=== PATIENT | female | born 1955 | race African-American/Black ===

== ENCOUNTER 2025-06-22 15:01 | Outpatient (AMB) | payer BC, MEDICAID, SELFPAY ==
--- NOTE | 2025-06-22 15:12 | A.PHYSOV ---
Vital Signs 06/22/25 15:23 Height 5 ft 7 in Weight 175 lb BMI 27.4 Intake Visit Reasons: Having increased shoulder and neck pain Intake Note: Patient is a 70 year old female having increased shoulder and neck pain. 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 She reports that about a week ago, she experienced a sudden onset of severe left shoulder pain that rendered her unable to move the arm, requiring her to use her right arm to move the left one. This episode occurred after grocery shopping with only one bag, and she subsequently spent two days in bed. She managed the symptoms at home with heat and Tylenol, and reports the pain has since improved significantly. A recent X-ray of the left shoulder was reportedly normal, with no fractures identified. The patient has a history of right shoulder issues, for which she previously sought care, related to a prominent clavicle, which she describes as causing discomfort and soreness rather than acute pain. She has undergone physical therapy for the right shoulder in the past. Additionally, the patient reports a history of sleepwalking, which has resulted in ER visits and a referral to a sleep center. Pain Description - Location: The patient reports a recent acute episode of left shoulder pain. - Quality: The left shoulder pain was so severe she was unable to move the arm independently. - Context: The pain began at the end of the day after grocery shopping. - Associated symptoms: The patient also reports chronic discomfort and soreness in the right shoulder and neck soreness with some pain on movement. - Alleviating factors: The acute left shoulder pain improved with rest, heat, and Tylenol. - Current status: The severe left shoulder pain has resolved, and she is feeling much better. Results - Imaging: Reports that a recent X-ray of the left shoulder was normal and showed no broken bones. [facility] Surgical History (Updated 06/22/25 @ 15:23 by Mojgan Angulo MA) Previous section H/O tubal ligation H/O: hysterectomy Social History (Updated 06/22/25 @ 15:22 by Mojgan Angulo MA) Alcohol intake: current Alcohol intake frequency: does not drink Patient Tobacco Use Status: Never used Tobacco Use of substances other than those prescribed or required for medical reasons: No Review of Systems Narrative Review of Systems - Musculoskeletal: Reports a recent episode of severe left shoulder pain, which has now improved. - Musculoskeletal: Reports chronic right shoulder discomfort and soreness, and a prominent right clavicle. - Musculoskeletal: Reports neck soreness. - Neurological: Reports a history of sleepwalking. - Constitutional: Reports difficulty sleeping, spending half the night awake. Physical Exam Exam Exam: Physical Exam - Neck: No pain on palpation, but some soreness noted. - Cervical Spine: Range of motion shows pain with bilateral lateral rotation, described as a pulling sensation. - Shoulders: Sore to palpation. - Right Shoulder: Discomfort noted with active abduction. - Left Shoulder: Pain is reproduced with a passive range of motion maneuver. - Motor: Strength is 5/5 with bilateral shoulder internal/external rotation, abduction, and adduction. - Hands: Bilateral evp general counsel strength is strong. - Clavicle: Right clavicle is more prominent and swollen compared to the left, suggestive of arthritic changes. Vital Signs: BMI result Body Mass Index 27.4 Assessment & Plan Assessment & Plan (1) Cervicalgia: Code(s): M54.2 - Cervicalgia Category: Medical (2) Impingement of left shoulder: Code(s): M25.812 - Other specified joint disorders, left shoulder Category: Medical Plan Pain Management - Analgesia: The patient used heat and Tylenol to manage her recent acute left shoulder pain. - Affect: She reports no significant current distress, as her pain is much improved. - Activities of Daily Living: During the acute pain episode, she was unable to leave the house and was bed-bound for two days. - Adverse Effects: No adverse effects from medications were discussed. - Aberrant Drug Related Behaviors: No aberrant behaviors were noted or discussed. Plan Patient was informed and verbally consented to the use of an ambient scribe for clinic note documentation during this visit. 1. Shoulder Pain The recent acute episode of left shoulder pain is suspected to be due to calcific tendinitis or bursitis, despite a negative x-ray. The chronic right shoulder discomfort is likely related to arthritis, as evidenced by the prominent clavicle. Since her symptoms have significantly improved, no immediate intervention is planned. Future options for pain flares were discussed, including physical therapy, oral medications, and cortisone injections, though she is not interested in injections at this time. The patient was instructed to call the clinic if the severe pain returns. 2. Sleep Disturbance The patient reports a history of sleepwalking and significant sleep disruption. She was advised on sleep posture, including sleeping on her side with a pillow between her legs or on her back, and avoiding sleeping on her stomach. She should follow up with the sleep center as previously referred. 3. Neck Pain The patient has neck soreness and pain on lateral rotation noted on exam. No active management was initiated at this visit, but she was advised she can return to the clinic for neck pain if it becomes problematic. Discussion Notes I explained to the patient that her recent severe left shoulder pain was likely an inflammatory condition such as bursitis or calcific tendinitis, which can resolve on its own, and that a negative X-ray for fracture is common in these cases. I also reassured her that the prominence of her right clavicle is likely from arthritis and not a detrimental condition. We agreed that since her symptoms have significantly improved, the plan is to monitor for now. I discussed future treatment options for pain flare-ups, including physical therapy, cortisone injections, and oral medications. I acknowledged her preference to avoid injections. I provided guidance on sleep posture. Finally, I encouraged her to contact our clinic directly for future musculoskeletal pain, such as in the shoulder, neck, back, or knee, to streamline her care. Patient Instructions - Since your shoulder pain is much better, no specific treatment is needed at this time. - If the severe shoulder pain comes back, please call our office directly to schedule an appointment. - Options for future pain may include physical therapy, medication, or a steroid shot in the shoulder. - The swelling on your right collarbone is likely due to arthritis and is not a cause for alarm. - To improve your sleep, try sleeping on your side with a pillow between your knees or on your back. - Do not sleep on your stomach. - You are welcome to return to this clinic for any future neck, back, or knee pain. Coding Level of Care Code Est Pt Level 3 (28357) Diagnoses Cervicalgia M54.2 Impingement of left shoulder M25.812
[2025-06-22 15:23] VITALS: BMI 27.4
--- OUTSIDE RECORDS SUMMARY | 2025-06-22 18:17 | XMS_ITS | Continuity of Care Document ---
Author Organization [facility], Main Office Address [address] [facility] [address] [place] [id number] Care Team Providers Care Supervisor [place] Name Role Phone KALA JACOBS Rotary Screen Printing Machine Operator JOSEPH RASHID Urologist [facility] Resourcing Consultant ABIGAIL HAIDER Software Systems Architect TONNY NVOA Rotary Screen Printing Machine Operator COLLETTE BE Primary Care Provider RYLEE ROBERTS Cigarette Tester [phone] Assessment No assessment recorded. Plan of Treatment Reminders Order Date Submit Date Provider Last Modified By Organization Details Last Modified Time Details Appointments [id number] 2025 10:15A M COLLETTE BE MD Not available Not available Not available Lab giardi a lambli a Ag, EIA, stool 2024 025 JESUS [facility], [address] [place], [address], 04/27/2025 20:05:52 gastro intest inal pathog ens panel, cultur e, stool 2024 025 [email or web address] [facility], [address] [place], [address], 04/24/2025 10:42:37 crypto sporid ium sp Ag, immuno assay, stool 2024 025 JESUS [facility] (Centralized Electronic Ordering - All Locations), Patient Can Go To The Location Of Their Choice, [id number] 04/27/2025 20:05:54 unlist ed lab - ova and parasi te exam, fecal 2024 025 JESUS [facility] (Centralized Electronic Ordering - All Locations), Patient Can Go To The Location Of Their Choice, [id number] 05/06/2025 12:06:03 Referral sleep medici ne referr farrukh townsend had on two occasi ons that she was sleep walkin g 2024 025 [facility], [address] [place] [address], [address], 05/22/2025 10:31:37 Procedures None record ed. Surgeries None record ed. Imaging None record ed. Medication Orders None record ed. Patient TargetsNo targets recorded. Patient Instructions Encounter Date Encounter Id Patient Instructions Last Modified By Organization Details Last Modified Time 04/17/2025 [id number] anal itching: care instructions [email or web address] Not available 04/17/2025 14:15:51 At [facility] follow up visit, all current and discharge medications (OTC, herbal therapies, supplements) reviewed and reconciled with patient and or caregiver, including potential side effects, drug interactions, instructions, and the consequences of not taking medication. Reviewed potential barriers to medication adherence, such as side effects from medication or cost of medication. [email or web address] Not available 04/17/2025 13:41:45 Reason for Referral Sleep Medicine Referral for Obstructive sleep apnea syndrome patient had on two occasions that she was sleep walking Referring Physician: Collette Be, Family Medicine, Encounter Date: 04/17/2025 Results Created Date Observation Date Name Description Value Unit Range Abnormal Flag Note LastModifiedBy Organization Detail LastModifiedTime 04/25/2004/27/2025 GIARD IA LAMBL IA AG, EIA giardia lamblia Ag, EIA Negati ve negati ve Not Available [facility] ([facility]) [address] [facility] [place], [place], [address], 04/27/2025 20:05:52 04/25/2004/27/2025 CRYPT OSPOR IDIUM EIA cryptosporid ium EIA Negati ve negati ve Not Available [facility] ([facility]) [address] [place], [address], 04/27/2025 20:05:54 04/25/2004/29/2025 STOOL CULTU RE salmonella/s higella screen Final report Not Available [facility] ([facility]) [address] [place], [address], 05/01/2025 08:07:24 04/25/2004/29/2025 STOOL CULTU RE result 1 COMMEN T No Salmo anil or Shige lla recov ered. Not Available [facility] ([facility]) [address] [place], [address], 05/01/2025 08:07:24 04/25/2004/29/2025 STOOL CULTU RE E coli shiga toxin EIA Negati ve negati ve Not Available [facility] ([facility]) [address] [place], [address], 05/01/2025 08:07:24 04/25/2005/01/2025 STOOL CULTU RE campylobacte r culture Final report Not Available [facility] ([facility]) [address] [place], [address], 05/01/2025 08:07:24 04/25/2005/01/2025 STOOL CULTU RE result 1 COMMEN T No Campy lobac ter speci es isola nusrat. Not Available [facility] ([facility]) [address] [place], [address], 05/01/2025 08:07:24 04/25/2005/06/2025 OVA AND MOON ITE EXAM, FECAL interpretati on Commen t Refer ence lab repor t sent via fax. Not Available [facility] ([facility]) [address] [place], [address], 05/06/2025 12:06:03 06/15/20 25 06/15/2025 XR, shoul amanda, 2 or more view No observ ation record ed. [facility] [address] [address], [place], [address], 06/17/2025 17:11:36 06/15/20 25 06/15/2025 XR, shoul amanda, 2 or more view Should er Min 2 Views Left, 2 views Reason : pain in left should er - COMPAR AILYN: None. FINDIN GS: No fractu re or disloc ation. No arthri tic change of the glenoh umeral joint. Normal AC joint and portio ns of the clavic le includ ed on the exam. No calcif icatio n of the rotato r cuff. IMPRES ALBERT: No acute osseou s abnorm ality involv ing the left should er. WSN: [id number] Orderi ng Physic tatiana: Deyanira Jc Dictat ed By: Angel Grady MD, V Dictat ed Date/T paige: 3:40 pm Review ed By: Cristy maddox MD, Angel Anand Signed By: Angel Grady MD, V Signed Date/T paige: 3:40 pm Transc ribed By: JOVANNI Transc ribed Date/T paige: 3:40 pm Patien t Class: Outpat ient [facility] (Outpt Imaging) [address] [place], [address], 06/17/2025 17:11:36 Result Notes None recorded. Problems Name Problem SNOMED Code Status Onset Date Resolution Date Notes Provider Name and Address Organization Details Recorded Time Lighthea dedness [id number] Completed 09/26/2018 Lainey matos [facility] 9 09:31:22 Cervical radiculo charlene [id number] Completed 09/13/2015 Aisha matos [facility] 6 11:09:53 Atypical chest pain 999848411 Completed 09/13/2015 Aisha Jacobs null, [facility] 6 11:09:53 Hypercho lesterol emia 61579214 Completed 09/13/2015 Aisha Jacobs null, [facility] 6 11:09:53 Muscle pain 29495771 Completed 09/13/2015 Aisha Jacobs null, [facility] 6 11:09:53 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 ; RECORDED 08/20/19 09 2:56PM BY RAMESH DIAZ ON/ADDEN DUM Aisha Jacobs null, [facility] 6 11:09:54 Generali zed abdomina l pain [id number] Completed 200802/09/2014 IMPRESSI ON: MORE FOOD INTOLERA NCE, PT TO LIMIT CHOICES THAT UPSET HER STOMACH. ; RECORDED 08/20/19 09 2:56PM BY RAMESH DIAZ ON/ADDEN DUM Aisha Jacobs carlo, [facility] 6 11:09:54 General examinat ion of patient Completed 200801/20/2014 IMPRESSI ON: PAP, MAMMO AND COLONOSC OPY UP TO DATE, NEED TO INCREASE EXERCISE . TD UTD, WILL KEEP LOOKING FOR WORK. START MORE EXERCISE AND STRETCHI NG; RECORDED 04/13/20 10:37AM BY RAMESH BURKETT ON/ADDEN DUM Aisha Jacobs null, [facility] 6 11:09:54 General examinat ion of patient Completed 200802/09/2014 IMPRESSI ON: PAP, MAMMO AND COLONOSC OPY UP TO DATE, NEED TO INCREASE EXERCISE . TD UTD, WILL KEEP LOOKING FOR WORK. START MORE EXERCISE AND STRETCHI NG; RECORDED 04/13/20 09 10:37AM BY RAMESH BURKETT ON/ADDEN DUM Aisha Jacobs null, [facility] 6 11:09:54 Nonspeci fic tubercul in test reaction [id number] Completed 201101/20/2014 IMPRESSI ON: CONFIRME D WITH TB CLINIC OK TO GET XRAY ONLY.; RECORDED 06/03/20 12 11:31AM BY KARRIE ESCOTO MA, ALTAGRACIAATI ON/ADDEN DUM Aisha Jacobs null, [facility] 6 11:09:54 Acute pain 694567118 Completed 201101/20/2014 RECORDED 06/03/20 12 11:32AM BY KARRIE ESCOTO MA, ANNOTATI ON/ADDEN DUM Aisha Jacobs null, [facility] 6 11:09:53 Acute sinusiti s [id number] Completed 201101/20/2014 RECORDED 06/03/20 12 11:31AM BY KARRIE ESCOTO MA, ALTAGRACIAATI ON/ADDEN DUM Aisha Jacobs null, [facility] 6 11:09:53 Synovial cyst of poplitea l space Completed 201101/20/2014 RECORDED 06/03/20 12 11:31AM BY KARRIE ESCOTO MA, ANNOTATI ON/ADDEN DUM Aisha Jacobs null, [facility] 6 11:09:53 Screenin g for malignan t neoplasm of breast Completed 201101/20/2014 RECORDED 06/03/20 12 11:32AM BY KARRIE ESCOTO MA, ANNOTATI ON/ADDEN DUM Aisha Jacobs null, [facility] 6 11:09:54 Kidney stone 63477034 Completed 201101/20/2014 RECORDED 06/03/20 12 11:31AM BY KARRIE ESCOTO MA, ALTAGRACIAATI ON/ADDEN DUM Lainey Corbin watkins null, [facility] 9 09:31:27 Impacted jazmin 46403912 Completed 201101/20/2014 RECORDED 06/03/20 12 11:31AM BY KARRIE ESCOTO MA, ANNOTATI ON/ADDEN DUM Aisha matos, [facility] 6 11:09:53 Screenin g for malignan t neoplasm of cervix Completed 201101/20/2014 RECORDED 06/03/20 12 11:32AM BY KARRIE ESCOTO MA, ANNOTATI ON/ADDEN DUM HUEY Burkett, [facility] 7 15:25:21 Edema 170234467 Completed 201101/20/2014 IMPRESSI ON: NO SIGNS OF CHF, DISC. SALT RESTRICT ION, RECOMMEN D COMPRESS ION HOSE(HAS ); RECORDED 06/03/20 12 11:31AM BY KARRIE ESCOTO MA, ANNOTATI ON/ADDEN DUM Aisha matos, [facility] 6 11:09:53 Headache [id number] Completed 201101/20/2014 RECORDED 06/03/20 12 11:31AM BY KARRIE ESCOTO MA, ANNOTATI ON/ADDEN DUM Aisha matos, [facility] 6 11:09:53 Pain of hip region 89717310 Completed 201101/20/2014 IMPRESSI ON: X 2 MONTHS, APPEARS TO BE WORSENIN G. MAINLY LATERAL, BUT SOME ANTERIOR GROIN TENDERNE SS AND RADIATIO N OF PAIN INTO ANTERIOR THIGH. CHECK XRAYS, ADVISED RE CAREFUL USE OF IBU (HX OF HTN). WILL CONTACT WITH RESULT WHEN AVAIL. HAS APPT WITH PCP FOR FULL PE LATER THIS MO.; RECORDED 06/03/20 12 11:31AM BY KARRIE ESCOTO MA, ANNOTATI ON/ADDEN DUM Aisha matos, [facility] 6 11:09:53 Lateral epicondy litis 346159197 Completed 201101/20/2014 RECORDED 06/03/20 12 11:32AM BY KARRIE ESCOTO MA, ANNOTATI ON/ADDEN DUM Aisha Jacobs null, [facility] 6 11:09:53 Polyuria 91760716 Completed 201101/20/2014 RECORDED 06/03/20 12 11:32AM BY KARRIE ESCOTO MA, ANNOTATI ON/ADDEN DUM Aisha Jacobs null, [facility] 6 11:09:53 Sciatica 31115276 Completed 201101/20/2014 RECORDED 06/03/20 12 11:32AM BY KARRIE ESCOTO MA, RAMESH ON/ADDEN DUM Aisha Jacobs null, [facility] 6 11:09:53 Chronic sinusiti s 01833276 Completed 201101/20/2014 RECORDED 06/03/20 12 11:31AM BY KARRIE ESCOTO MA, RAMESH ON/ADDEN DUM Aisha Jacobs null, [facility] 6 11:09:53 Feces contents abnormal 950482699 Completed 201101/20/2014 RECORDED 06/03/20 12 11:31AM BY KARRIE ESCOTO MA, RAMESH ON/ADDEN DUM Aisha Jacobs null, [facility] 6 11:09:54 Psychoge [place]let headache 49631395 Completed 201101/20/2014 IMPRESSI ON: TALKED ABOUT EXERCISE , STRETCHI NG; RECORDED 06/03/20 12 11:31AM BY KARRIE ESCOTO MA, RAMESH ON/ADDEN DUM Aisha Jacobs null, [facility] 6 11:09:53 Chronic disease of tonsils AND/OR adenoids 10233617 Completed 201101/20/2014 RECORDED 06/03/20 12 11:31AM BY KARRIE ESCOTO MA, RAMESH ON/ADDEN DUM Aisha Jacobs null, [facility] 6 11:09:53 Nonspeci fic tubercul in test reaction [id number] Completed 201102/09/2014 IMPRESSI ON: CONFIRME D WITH TB CLINIC OK TO GET XRAY ONLY.; RECORDED 06/03/20 12 11:31AM BY KARRIE ESCOTO MA, ANNOTATI ON/ADDEN DUM Aisha Jacobs null, [facility] 6 11:09:54 Acute pain 375392351 Completed 201102/09/2014 RECORDED 06/03/20 12 11:32AM BY KARRIE ESCOTO MA, ANNOTATI ON/ADDEN DUM Aisha Jacobs null, [facility] 6 11:09:53 Acute sinusiti s 89012816 Completed 201102/09/2014 RECORDED 06/03/20 12 11:31AM BY KARRIE ESCOTO MA, ANNOTATI ON/ADDEN DUM Aisha Jacobs null, [facility] 6 11:09:53 Synovial cyst of poplitea l space Completed 201102/09/2014 RECORDED 06/03/20 12 11:31AM BY KARRIE ESCOTO MA, ANNOTATI ON/ADDEN DUM Aisha Jacobs null, [facility] 6 11:09:53 Screenin g for malignan t neoplasm of breast Completed 201102/09/2014 RECORDED 06/03/20 12 11:32AM BY KARRIE ESCOTO MA, ANNOTATI ON/ADDEN DUM Aisha Jacobs null, [facility] 6 11:09:54 Kidney stone 62245708 Completed 201102/09/2014 RECORDED 06/03/20 12 11:31AM BY KARRIE ESCOTO MA, ANNOTATI ON/ADDEN DUM Lainey Glading-Di june null, [facility] 9 09:31:27 Impacted cerumen 01254666 Completed 201102/09/2014 RECORDED 06/03/20 12 11:31AM BY KARRIE ESCOTO MA, ANNOTATI ON/ADDEN DUM Aisha Jacobs null, [facility] 6 11:09:53 Screenin g for malignan t neoplasm of cervix Completed 201102/09/2014 RECORDED 06/03/20 12 11:32AM BY KARRIE ESCOTO MA, ANNOTATI ON/ADDEN DUM Lluvia Colmenares MA null, [facility] 7 15:25:21 Edema 037520185 Completed 201102/09/2014 IMPRESSI ON: NO SIGNS OF CHF, DISC. SALT RESTRICT ION, RECOMMEN D COMPRESS ION HOSE(HAS ); RECORDED 06/03/20 12 11:31AM BY KARIRE ESCOTO MA, ANNOTATI ON/ADDEN DUM Aisha matos, [facility] 6 11:09:53 Headache 79680726 Completed 201102/09/2014 IMPRESSI ON: TENSION PT TO WORK ON WALKING OTHER EXERCISE ; RECORDED 06/03/20 12 11:31AM BY KARRIE ESCOTO MA, ANNOTATI ON/ADDEN DUM Aisha matos, [facility] 6 11:09:53 Pain of hip region 95318225 Completed 201102/09/2014 IMPRESSI ON: X 2 MONTHS, APPEARS TO BE WORSENIN G. MAINLY LATERAL, BUT SOME ANTERIOR GROIN TENDERNE SS AND RADIATIO N OF PAIN INTO ANTERIOR THIGH. CHECK XRAYS, ADVISED RE CAREFUL USE OF IBU (HX OF HTN). WILL CONTACT WITH RESULT WHEN AVAIL. HAS APPT WITH PCP FOR FULL PE LATER THIS MO.; RECORDED 06/03/20 12 11:31AM BY KARRIE ESCOTO MA, RAMESH ON/ADDEN DUM Aisha matos, [facility] 6 11:09:53 Lateral epicondy litis 008483810 Completed 201102/09/2014 RECORDED 06/03/20 12 11:32AM BY KARRIE ESCOTO MA, ANNOTATI ON/ADDEN DUM Aisha matos, [facility] 6 11:09:53 Polyuria 41176319 Completed 201102/09/2014 RECORDED 06/03/20 12 11:32AM BY KARRIE ESCOTO MA, RAMESH ON/ADDEN DUM Aisha Jacobs null, [facility] 6 11:09:54 Sciatica 77497519 Completed 201102/09/2014 RECORDED 06/03/20 12 11:32AM BY KARRIE ESCOTO MA, ANNOTATI ON/ADDEN DUM Aisha Jacobs null, [facility] 6 11:09:53 Chronic sinusiti s 91561255 Completed 201102/09/2014 RECORDED 06/03/20 12 11:31AM BY KARRIE ESCOTO MA, RAMESH ON/ADDEN DUM Aisha Jacobs null, [facility] 6 11:09:53 Feces contents abnormal [id number] Completed 201102/09/2014 RECORDED 06/03/20 12 11:31AM BY KARRIE ESCOTO MA, RAMESH ON/ADDEN DUM Aisha Jacobs null, [facility] 6 11:09:54 Psychoge hamlet headache 85692142 Completed 201102/09/2014 IMPRESSI ON: TALKED ABOUT EXERCISE , AMANDA KEN; RECORDED 06/03/20 12 11:31AM BY KARRIE ESCOTO MA, RAMESH ON/ADDEN DUM Aisha Jacobs null, [facility] 6 11:09:53 Chronic disease of tonsils AND/OR adenoids 17306410 Completed 201102/09/2014 RECORDED 06/03/20 12 11:31AM BY KARRIE ESCOTO MA, ARMESH ON/ADDEN DUM Aisha Jacobs null, [facility] 6 11:09:53 Acute pharyngi tis 647463317 Completed 201201/20/2014 RECORDED 08/05/19 13 3:29PM BY RAMESH BURKETT ON/ADDEN DUM Aisha Jacobs null, [facility] 6 11:09:53 Acute pharyngi tis 072312982 Completed 201202/09/2014 RECORDED 08/05/19 13 3:29PM BY RAMESH BURKETT ON/ADDEN DUM Aisha matos, [facility] 6 11:09:53 Patient status finding [id number] Completed 201201/20/2014 RECORDED 10/30/19 13 1:10PM BY LATONYA AGUILAR MA, ANNOTATI ON/ADDEN DUM Aisha matos, [facility] 6 11:09:54 Screenin g for malignan t neoplasm of colon Completed 201201/20/2014 RECORDED 10/30/19 13 1:11PM BY LATONYA AGUILAR MA, ANNOTATI ON/ADDEN DUM Aisha matos, [facility] 6 11:09:54 Adult health examinat ion Completed 201201/20/2014 IMPRESSI ON: PAP AND MAMMO WILL HAPPEN THIS NEXT MONTH, PT NEEDS OT EXECISE MORE SHE WILL SET UP COLONOSC OPY SINCE SHE IS DUE.; RECORDED 10/30/19 13 1:11PM BY LATONYA AGUILAR MA, ANNOTATI ON/ADDEN DUM Aisha matos [facility] 6 11:09:54 Hearing loss 61356081 Completed 201201/20/2014 IMPRESSI ON: PT WILL SET UP APPT; RECORDED 10/30/19 13 1:11PM BY LATONYA AGUILAR MA, ANNOTATI ON/ADDEN DUM Allyn matos, [facility] 7 14:03:27 Blood in urine [id number] Completed 201201/20/2014 IMPRESSI ON: FOLLOWED BY UROLOGY, WILL HAVE CYSTOSCO PY THIS WEEK; RECORDED 10/30/19 13 1:11PM BY LATONYA AGUILAR MA, ANNOTATI ON/ADDEN DUM Aisha matos [facility] 6 11:09:53 Disorder of upper respirat ory system Completed 201201/20/2014 IMPRESSI ON: PT WITH CHRONIC ALLERGIE S AND MILD SINUS SXS, WORSE PAST WEEK. EXPLAINE D COULD VERY WELL BE VIRAL, ADVISED RE SX SUPPORT WITH REST, FLUIDS, NASAL SALINE AND CS SPRAY, OTC ANALGESI C. GIVEN HX THOUGH WILL TAKE ABX NOW, FEELS THOUGH IT IS A CLEAR EXACERBA TION OF CHRONIC SXS. CALL FOR WORSENIN G/PRN.; RECORDED 10/30/19 13 1:10PM BY LATONYA AGUILAR MA, ALTAGRACIAATI ON/ADDEN DUM Aisha matos [facility] 6 11:09:54 Increase d frequenc y of urinatio n 967940702 Completed 201209/13/2015 IMPRESSI ON: NO CLEAR SIGNS OF INFX, MORE CONSISTE NT WITH URGE INCONTIN ENCE. DISCUSSE Ivone MCFARLANEGELS FOR NOW. WILL CONTACT IF SEND OUT URINE ABNL.; RECORDED 10/30/19 13 1:10PM BY LATONYA AGUILAR MA, RAMESH ON/ADDEN DUM; RECORDED 09/09/19 14 1:16PM BY LLUVIA COLMENARES, OFFICE VISIT Aisha matos [facility] 6 11:09:53 Patient status finding [id number] Completed 201202/09/2014 RECORDED 10/30/19 13 1:10PM BY LATONYA AGUILAR MA, ANNOTATI ON/ADDEN DUM Aisha matos [facility] 6 11:09:54 Screenin g for malignan t neoplasm of colon Completed 201202/09/2014 RECORDED 10/30/19 13 1:11PM BY LATONYA AGUILAR MA, ANNOTATI ON/ADDEN DUM Aisha matos [facility] 6 11:09:54 Hearing loss [id number] Completed 201202/09/2014 IMPRESSI ON: PT WILL SET UP APPT; RECORDED 10/30/19 13 1:11PM BY LATONYA AGUILAR MA, ANNOTATI ON/ADDEN DUM Allyn matos [facility] 7 14:03:27 Blood in urine [id number] Completed 201202/09/2014 IMPRESSI ON: FOLLOWED BY UROLOGY, WILL HAVE CYSTOSCO PY THIS WEEK; RECORDED 10/30/19 13 1:11PM BY LATONYA AGUILAR MA, ANNOTATI ON/ADDEN DUM Aisha matos [facility] 6 11:09:53 Disorder of upper respirat ory system Completed 201202/09/2014 IMPRESSI ON: PT WITH CHRONIC ALLERGIE S AND MILD SINUS SXS, WORSE PAST WEEK. EXPLAINE D COULD VERY WELL BE VIRAL, ADVISED RE SX SUPPORT WITH REST, FLUIDS, NASAL SALINE AND CS SPRAY, OTC ANALGESI C. GIVEN HX THOUGH WILL TAKE ABX NOW, FEELS THOUGH IT IS A CLEAR EXACERBA TION OF CHRONIC SXS. CALL FOR WORSENIN G/PRN.; RECORDED 10/30/19 13 1:10PM BY LATONYA AGUILAR MA, ANNOTATI ON/ADDEN DUM Aisha matos [facility] 6 11:09:54 Increase d frequenc y of urinatio n 399621175 Completed 201202/09/2014 IMPRESSI ON: NO CLEAR SIGNS OF INFX, MORE CONSISTE NT WITH URGE INCONTIN ENCE. DISCUSSE Ivone MORROW FOR NOW. WILL CONTACT IF SEND OUT URINE ABNL.; RECORDED 10/30/19 13 1:10PM BY LATONYA AGUILAR MA, ANNOTATI ON/ADD DUM Aisha matos [facility] 6 11:09:53 Influenz a vaccine needed [id number] 06 Completed 201201/20/2014 RECORDED 05/07/20 13 3:38PM BY LLUVIA COLMENARES, OFFICE VISIT Aisha matos [facility] 6 11:09:54 Essentia l hyperten albert 60662766 Completed 201201/20/2014 IMPRESSI ON: BP WELL CONTROLL ED CONTINUE MEDS; RECORDED 05/07/20 13 3:26PM BY RAMESH BURKETT ON/ADDEN DUM Allyn matos [facility] 7 14:03:35 Influenz a vaccine needed 15225927201 06 Completed 201202/09/2014 RECORDED 05/07/20 3:38PM BY LLUVIA COLMENARES, OFFICE VISIT Aisha matos, [facility] 6 11:09:54 Calcium deposits in tendon 009556579 Completed 201209/13/2015 STORY: KNEE; IMPRESSI ON: DISCUSSE D X-RAY WITH PT. NO ARTHRITI S. BUT CALCIUM ON PATELLAR AND QUADRICE P TENDON. NOT CLEAR IF PATELLAR TENDINIT IS OR OTHER ISSUE. CONSULT WITH ORTHO. SHE WILL CALL TO MAKE APPT; RECORDED 06/11/20 13 2:10PM BY LLUVIA COLMENARES, OFFICE VISIT Aisha matos, [facility] 6 11:09:53 Chest pain 45874582 Completed 201209/13/2015 IMPRESSI ON: REPRODUC IBLE, FEELS LIKE MUSCULAR , MOTRIN HELPS, IT IS IMPROVIN G AND CAME ON AFTER REACHING FOR OBJECT IN AN AWKWARD WAY, NO CONCERN FOR CARDIAC, MOTRIN PRN, RETURN IF NOT IMPROVED OR HAS A NEW DISCOMFO RT. EKG WITH PROLONGE D QT BUT NO SYMPTOMS , CALCIUM CHECKED 04/13 AND WAS 10.6 NO FURTHER WORKUP; RECORDED 06/11/20 13 3:12PM BY LAINEY Cobos MD, OFFICE VISIT Aisha matos [facility] 6 11:09:53 Measurem ent finding Completed 201202/20/2014 IMPRESSI ON: LEVEL A BIT UP AT 124, WILL HAVE PT REPEAT THE LEVEL IN A FEW WEEKS IF STILL ELEVATED WILL GET PT TO GI; RECORDED 06/11/20 13 2:10PM BY LLUVIA COLMENARES, OFFICE VISIT Aisha matos [facility] 6 11:09:54 Malaise and fatigue 530033229 Completed 201209/13/2015 IMPRESSI ON: HX SOUNDS LIKE POSSIBLE SLEEP PANEA, PT HAS NEVER BEEN TESTED, SHE WILL ORGANIZE FIRST APPT; RECORDED 06/11/20 13 2:10PM BY LLUVIA COLMENARES, OFFICE VISIT Aisha matos, [facility] 6 11:09:53 Hearing loss 97951396 Active 2012 Not Available [facility] 0 11:17:28 Knee pain Completed 201209/13/2015 IMPRESSI ON: 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 TYLENOL NEEDED; RECORDED 06/11/20 13 2:10PM BY LLUVIA COLMENARES, OFFICE VISIT Aisha matos [facility] 6 11:09:53 Sprains and strains of joints and adjacent muscles Completed 201209/13/2015 RECORDED 06/11/20 13 2:56PM BY LAINEY Cobos MD, OFFICE VISIT Aisha matos, [facility] 6 11:09:54 Follow-u p encounte r Completed 201309/13/2015 RECORDED 08/27/19 14 9:29AM BY LLUVIA COLMENRAES, OFFICE VISIT Aisha matos, [facility] 6 11:09:54 Hydronep hrosis 25893575 Completed 201309/13/2015 RECORDED 08/27/19 14 9:52AM BY LAINEY Cobos MD, OFFICE VISIT Aisha matos, [facility] 6 11:09:53 Gastroes ophageal reflux disease 370771346 Completed 201309/13/2015 IMPRESSI ON: USES PRN PRILOSEC , WATCHING DIET; RECORDED 09/09/19 14 1:16PM BY LLUVIA COLMENARES, OFFICE VISIT Aisha matos, [facility] 6 11:09:53 Essentia l hyperten albert 80162811 Active 2013 Not Available [facility] 0 11:17:28 Adult health examinat ion Completed 201309/13/2015 IMPRESSI ON: PAP, MAMMO AND COLONOSC OPY UTD, VITAMIN D, EXERCISE , INCREASE FIBER IN DIET TO HELPW ITH RECENT CONSTIPA TION, OCNISDER ZOSTAVAX AT [facility]; RECORDED 09/09/19 14 2:02PM BY LAINEY Cobos MD, OFFICE VISIT Aisha matos, [facility] 6 11:09:54 Pure hypercho lesterol emia 670367338 Completed 201301/20/2014 IMPRESSI ON: CHECK LEVEL; RECORDED 09/09/19 14 1:50PM BY LAINEY Cobos MD, ANNOTATI ON/ADDEN DUM Aisha Jacobs null, [facility] 6 11:09:53 Hypercal cemia 26228545 Completed 201309/13/2015 RECORDED 09/09/19 14 1:16PM BY LLUVIA COLMENARES, OFFICE VISIT Aisha Jacobs null, [facility] 6 11:09:53 Hypokale bhavna 68548204 Completed 201301/20/2014 RECORDED 09/09/19 14 1:50PM BY LAINEY Cobos MD, ANNOTATI ON/ADDEN DUM Aisha Jacobs null, [facility] 6 11:09:53 Kidney stone 41277714 Completed 201309/26/2018 Lainey matos, [facility] 9 09:31:27 Laborato ry procedur e performe d 614648526 Completed 201301/20/2014 RECORDED 09/09/19 14 1:16PM BY LLUVIA COLMENARES, ALTAGRACIAATI ON/ADDEN DUM Aisha Jacobs null, [facility] 6 11:09:54 Patient status finding [id number] Completed 201309/13/2015 RECORDED 09/09/19 14 1:32PM BY LLUVIA COLMENARES, OFFICE VISIT Aisha Jacosb null, [facility] 6 11:09:54 Carpal tunnel syndrome 78462028 Completed 201309/13/2015 RECORDED 09/09/19 14 1:16PM BY LLUVIA COLMENARES, OFFICE VISIT Aisha matos, [facility] 6 11:09:53 Pure hypercho lesterol emia [id number] Completed 201302/09/2014 IMPRESSI ON: CHECK LEVEL; RECORDED 09/09/19 14 1:50PM BY LAINEY Cobos MD, ANNOTATI ON/ADDEN DUM Aisha matos, [facility] 6 11:09:53 Hypokale bhavna [id number] Completed 201302/09/2014 RECORDED 09/09/19 14 1:50PM BY LAINEY Cobos MD, ANNOTATI ON/ADDEN DUM Aisha matos, [facility] 6 11:09:53 Laborato ry procedur e performe d [id number] Completed 201302/09/2014 RECORDED 09/09/19 14 1:16PM BY LLUVIA COLMENARES, RAMESH ON/ADDEN DUM Aisha matos, [facility] 6 11:09:54 Screenin g for malignan t neoplasm of cervix Completed 201311/22/2016 HUEY Burkett, [facility] 7 15:25:21 Dependen ce on continuo us positive airway pressure ventilat ion 237066720 Active 2017 CPAP 20 cm H2O Not Available [facility] 0 11:17:28 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 88417678 Completed 201702/04/2020 Lainey matos, [facility] 0 11:32:27 Hyperpar athyroid ism 88877275 Active 2017 Not Available [facility] 0 11:17:28 History of calculus of kidney 246346960 Active 2018 Not Available [facility] 0 11:17:28 SARS-CoV -2 Completed 202107/20/2022 HUEY Rice, [facility] 3 09:53:04 Palpitat ions 04079534 Active 2022 COLLETTE BE MD [address], [place], [address] , [facility] 3 13:34:09 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 Procedures Surgical History Date Name Laterality Status Provider Name and Address Organization Details Recorded Time 09/09/19 25 Advanced Care Planning completed COLLETTE BE MD [address], [place], [address], [facility] 09/05/2024 12:27:29 07/23/19 25 Most Recent Mammogram completed Laureen Clinton [facility] 07/23/2024 11:43:38 08/15/19 24 Breast Biopsy completed Aisah Jacobs [facility] 09/07/2023 15:47:41 07/27/19 24 Breast Biopsy completed Anette Haddad MA [facility] 09/07/2023 10:21:07 07/19/19 24 Mammogram screening completed Jessie Dodge [facility] 09/07/2023 15:35:19 01/18/20 23 Date of Last Colonoscopy completed Lluvia Colmenares MA [facility] 09/08/2024 10:43:41 01/18/20 23 Colonoscopy completed Laureen Clinton [facility] 09/13/2023 08:45:26 02/19/20 21 Advanced Care Planning completed Lluvia Colmenares MA [facility] 02/18/2021 10:06:15 06/24/20 20 Mammogram one breast completed Griselda Chua [facility] 07/09/2020 14:20:31 05/13/20 20 Most Recent Bone Density completed Aisha Jacobs [facility] 05/18/2020 10:07:51 05/13/20 20 Dxa bone density lb vrt fx completed Aisha Jacobs [facility] 05/18/2020 10:07:34 02/04/20 20 Six-Item Cognitive Test completed Lluvia Colmenares MA [facility] 02/04/2020 11:13:44 07/02/19 20 Date of Last Pap Smear completed Lluvia Colmenares MA [facility] 02/18/2021 10:13:58 09/27/19 19 Mini-Cog Test completed Lluvia Colmenares MA [facility] 09/26/2018 09:10:28 09/12/19 19 Explore parathyroid glands completed Lainey valente [facility] 09/26/2018 09:30:22 07/02/18 83 Tubal Ligation completed Tatiana winslow MA [facility] 06/08/2022 10:16:21 07/02/18 83 Caesarean Section completed Tatiana winslow MA [facility] 06/08/2022 10:16:26 Anesth stone removal completed Lluvia Colmenares MA [facility] 08/12/2020 09:42:03 Partial hysterectomy completed Tatiana winslow MA [facility] 06/08/2022 10:16:15 Imaging Results None recorded. Procedure Notes None recorded. Medical Equipment None Reported. Allergies Allergen ID Allergen Name Allergen Category Reaction Reaction Severity Criticality Documentation Date Start Date Code Code System Note Provider Name and Address Organization Details Recorded Time 97585 diclofena c Not available tachycard ia Not available Not available 06/08/2022 3355 RxNorm gel HUEY Edwards [facility] 2 10:12:00 56998 amlodipin e medicatio n Not available Not available low 12/25/2022 83760 RxNorm lower extre mity swell ing, not aller gy SE SAFIA Montes De Oca [facility] 4 13:44:41 37823 losartan medicatio n palpitati ons Not available Not available 02/01/2023 38876 RxNorm right arm numbn ess and fatig ue HUEY Edwards [facility] 3 10:33:52 25353 lisinopri l medicatio n palpitati ons Not available Not available 04/12/2023 42627 RxNorm HUEY Edwards [facility] 3 10:33:07 Medications Name Sig Start Date Stop Date Status Note LastModified by Organization Details LastModified Time omeprazol e 20 mg cpdr active Not Available Not Available Not Available lisinopri l 5 mg tabs active Not Available Not Available Not Available losartan 50 mg tablet TAKE 1 TABLET BY MOUTH EVERY DAY 03/12 completed Not Available Not Available Not Available cyclobenz aprine 10 mg tablet Take 1 tablet twice a day by oral route for 7 days. 11/22 completed Not Available Not Available Not Available amoxicill in 500 mg capsule TAKE 1 CAPSULE BY MOUTH THREE TIMES DAILY 08/24 completed Not Available Not Available Not Available hydrocort isone 0.5 % topical cream APPLY A THIN LAYER TO THE AFFECTED AREA(S) BY TOPICAL ROUTE 2 TIMES PER DAY active Not Available Not Available No t Available diclofena c 3 % topical gel APPLY TO LESION AREAS TOPICALL Y TWICE DAILY 06/08 completed Not Available Not Available Not Available nystatin 100,000 unit/mL oral suspensio n Take 5 mL 4 times a day by oral route. 07/20 completed Not Available Not Available Not Available potassium chloride ER 10 mEq capsule,e xtended release DAILY 05/16 completed RECORDED 05/16/20 10 4:57PM BY STEVEN DONOHUE, ANNOTATI ON/ELIZABETH HAYES; Not Available Not Available Not Available doxycycli ne hyclate 100 mg capsule TAKE 1 CAPSULE BY MOUTH TWICE DAILY FOR 10 DAYS 02/18 completed Not Available Not Available Not Available clindamyc in HCl 300 mg capsule TAKE 1 CAPSULE BY MOUTH EVERY 6 HOURS UNTILL GONE 11/16 completed Not Available Not Available Not Available fluconazo le 150 mg tablet GARRET PRN YEAST VAGINITI S 12/27 completed RECORDED 01/07/20 08 2:02PM BY STARLA AMADO MD, MEDICATI ON AUTO-NUPUR CTIVATIO N; Not Available Not Available Not Available tolterodi ne ER 4 mg capsule,e xtended release 24 hr Take 1 capsule every day by oral route for 90 days. 08/04 completed Not Available Not Available Not Available lisinopri l 20 mg tablet TAKE 1 TABLET BY MOUTH EVERY DAY active Not Available Not Available No t Available Zithromax Z-Tacos 250 mg tablet QD 10/30 completed RECORDED 01/12/20 11 10:52AM BY ANETTE COTTON PA-C, MEDICATI ON AUTO-NUPUR CTIVATIO N;2PO QD FOR 1 DAY, THEN 1 QD FOR 4 DAYS. Not Available Not Available Not Available chlorthal idone 25 mg tablet TAKE 1 TABLET BY MOUTH EVERY DAY FOR 30 DAYS 04/10 completed Not Available Not Available Not Available amlodipin e 5 mg tablet TAKE 1 TABLET BY MOUTH EVERY DAY active Not Available Not Available No t Available ciproflox acin 500 mg tablet BID 08/30 completed RECORDED 09/02/19 14 3:12PM BY LAINEY Cobos MD, MEDICATI ON AUTO-NUPUR CTIVATIO N; Not Available Not Available Not Available sulfameth oxazole 800 mg-trimet hoprim 160 mg tablet Take 1 tablet every 12 hours by oral route for 3 days. 07/20 completed Not Available Not Available Not Available triamcino lone acetonide 0.1 % topical cream APPLY 1 APPLICAT ION TOPICALL Y TWICE A DAY FOR 14 DAYS active Not Available Not Available No t Available Fluticaso ne Propionat e (Inhal) 50 mcg/BLIST inhl powd DAILY IN EACH NOSTRIL 07/03 completed RECORDED 07/24/19 13 2:39PM BY ADDISON DIETRICH, JULEE, MEDICATI ON AUTO-NUPUR CTIVATIO N; Not Available Not Available Not Available famotidin e 20 mg tablet Take 1 tablet twice a day by oral route. 08/04 completed is taking prn Not Available Not Available Not Available tamsulosi n 0.4 mg capsule active Not Available Not Available Not Available amlodipin e 10 mg tablet TAKE 1 TABLET BY MOUTH EVERY DAY active Not Available Not Available No t Available lisinopri l 10 mg tablet TAKE 1 TABLET BY MOUTH EVERY DAY 10/11 completed Not Available Not Available Not Available naproxen 500 mg tablet,de layed release TAKE 1 TABLET BY MOUTH TWICE DAILY FOR 10 DAYS 08/24 completed Not Available Not Available Not Available docusate sodium 100 mg capsule Take 1 capsule every day by oral route for 30 days. 10/22 completed Not Available Not Available Not Available oxybutyni n chloride ER 5 mg tablet,ex tended release 24 hr TAKE 1 TABLET BY MOUTH EVERY DAY 03/12 completed Not Available Not Available Not Available omeprazol e 20 mg capsule,d elayed release Take 1 capsule every day by oral route for 30 days. 09/01 completed Not Available Not Available Not Available lisinopri l 5 mg tablet TAKE 1 TABLET BY MOUTH EVERY DAY 09/01 completed Not Available Not Available Not Available hydrochlo rothiazid e 25 mg tablet QD 05/16 completed RECORDED 05/16/20 10 4:57PM BY STEVEN DONOHUE, ANNOTATI ON/ELIZABETH DUM; Not Available Not Available Not Available gabapenti n 100 mg capsule Take 3 capsules every day by oral route at bedtime for 30 days. 2014 active Not Available Not Available Not Avai lable ibuprofen 600 mg tablet TAKE 1 TABLET BY MOUTH FOUR TIMES DAILY NEEDED FOR PAIN 11/23 completed Not Available Not Available Not Available polyethyl delio glycol 3350 17 gram/dose oral powder Take 17 g every day by oral route for 30 days. 09/19 completed Not Available Not Available Not Available oxybutyni n chloride 5 mg tablet TAKE 1 TABLET BY MOUTH EVERY 6 HOURS NEEDED 02/18 completed Not Available Not Available Not Available fluticaso ne propionat e 50 mcg/actua tion nasal spray,yennifer pension SPRAY 2 SPRAYS INTO BOTH NOSTRILS ONCE A DAY X 90 DAYS active Not Available Not Available No t Available naproxen 500 mg tablet Take 1 tablet twice a day by oral route for 14 days. 07/20 completed Not Available Not Available Not Available amoxicill in 875 mg-potass ium clavulana te 125 mg tablet TAKE 1 TABLET BY MOUTH EVERY 12 HOURS UNTIL FINISHED 08/24 completed Not Available Not Available Not Available oxycodone 5 mg tablet 09/26 completed Not Available Not Available Not Available Vitamin D 50,000 unit capsule Take 1 capsule every week by oral route. 05/20 completed Not Available Not Available Not Available Vitamin D3 25 mcg (1,000 unit) capsule Take 1 capsule every day by oral route for 90 days. 2019 active 3.24 - rec increase to 2 capsules /day Not Available Not Available Not Available rosuvasta tin 5 mg tablet TAKE 1 TABLET BY MOUTH EVERY DAY 01/08 completed Not Available Not Available Not Available Prilosec OTC 20 mg tablet,de layed release DAILY 02/05 completed RECORDED 02/06/20 13 4:57PM BY STEVEN DONOHUE, ANNOTATI ON/ELIZABETH HAYES; Not Available Not Available Not Available tizanidin e 4 mg capsule TAKE 1 CAPSULE BY MOUTH THREE TIMES DAILY FOR 10 DAYS 08/24 completed Not Available Not Available Not Available magnesium 665 mg 1 po qd 02/18 completed Not Available Not Available Not Available Amoxil BID 01/01 completed RECORDED 01/07/20 08 2:02PM BY STARLA AMADO MD, MEDICATI ON AUTO-NUPUR CTIVATIO N; Not Available Not Available Not Available Tennis Elbow Support DIRECTED 04/23 completed RECORDED 05/16/20 10 4:47PM BY NAPOLEON LOFTON I MEDICATI ON AUTO-NUPUR CTIVATIO N; Not Available Not Available Not Available Citracal 1 po qd 08/04 completed Not Available Not Available Not Available fluocinol one acetonide oil 0.01 % ear drops Instill 1 drop every day by otic route as directed for 30 days. 09/14 completed Not Available Not Available Not Available GaviLyte- G 236 gram-22.7 4 gram-6.74 gram-5.86 gram oral solution 02/01 completed Not Available Not Available Not Available Probiotic 1 capsule po daily 09/19 completed Not Available Not Available Not Available Fluad Quad 2822-1535 (65yr up)(PF) 60 mcg (15 mcg x 4)/0.5mL IM syringe ADM 0.5ML IM UTD 08/04 completed Not Available Not Available Not Available Sodium Fluoride 5000 Dry Mouth 1.1 % dental paste APPLY 1 APPLICAT ION. TO TEETH 2 TIMES DAILY. active Not Available Not Available No t Available Vitals Date Recorded Body height Body mass index (BMI) Body weight Heart rate Oxygen saturation Body temperature Systolic And Diastolic Provider Name and Address Organization Details Last Updated DateTime 5 170.18 cm 26.5 kg/m2 07322.1 1 g 62 /min 99 % 98.1 [degF] 119/74 mm[Hg] Claudia Cifuentes MA [facility] 5 13:45:27 Social History Question Answer Notes LastModified by Organizat ion Details LastModified Time Tobacco Smoking Status Never Smoker Karrie matos [facility] 02/20/2014 11:27:08 Do You Have An Advance Directive? No [email or web address] Information not available 08/12/2020 Is Blood Transfusion Acceptable In An Emergency? Yes [email or web address] Information not available 09/13/2015 What Is Your Level Of Caffeine Consumption? None [email or web address] Information not available 09/09/2014 How Much Tobacco Do You Chew? None Information not available 05/28/2017 In The 14 Days Before Symptom Onset, Have You Had Close Contact With A Person Who Is Under Investigation For COVID-19 While That Person Was Ill? No [email or web address] Information not available 08/12/2020 Have You Been To An Area Known To Be High Risk For COVID-19? No [email or web address] Information not available 08/12/2020 What Type Of Diet Are You Following? SPECIFIC Gluten-free And No Dairy Information not available 06/08/2022 Which Illicit Or Recreational Drugs Have You Used? None Information not available 05/28/2017 Live Alone Or With Others? With Others Niles [email or web address] Information not available 09/07/2023 Do You Take Precautions To Prevent Distracted Driving? Yes Information not available 09/13/2015 How Often Do You Need To Have Someone Help You When You Read Instructions, Pamphlets, Or Other Written Material From Your Doctor Or Pharmacy? Sometimes [email or web address] Information not available 09/13/2015 Have You Served In The ? No [email or web address] Information not available 09/14/2016 Have You Or Anyone In Your Household Had Any Of The Following Symptoms In The Last 14 Days: Sore Throat, Cough, Chills, Body Aches For Unknown Reasons, Shortness Of Breath For Unknown Reasons, Loss Of Smell, Loss Of Taste, Fever At Or Greater Than 100 Degrees Fahrenheit? No [email or web address] Information not available 02/04/2020 Are You Or Anyone In Your Household A Health Care Provider Or Emergency Responder? No [email or web address] Information not available 02/04/2020 To The Best Of Your Knowledge Have You Been In Close Proximity To Any Individual Who Tested Positive For COVID-19? No [email or web address] Information not available 02/04/2020 *AWV ONLY* Are You Presently Prescribed Opioid Medication By PCP Or Specialist? If YES -Provider Assess The Benefit For Other, Non-opioid Pain Therapies Instead, Even If The Patient Does Not Have OUD But Is Possibly At Risk. No Information not available 02/18/2021 Have You Recently Traveled To A COVID-19 High Risk Area Or Gathering In The Last 10 Days? No [email or web address] Information not available 08/04/2020 What Was The Date Of Your Most Recent Tobacco Screening? 09/08/2024 [email or web address] Information not available 09/08/2024 How Many Children Do You Have? 2 Nu Information not available 06/08/2022 Do You Use Protection During Sex? No Information not available 05/28/2017 What Is Your Relationship Status? [email or web address] Information not available 09/08/2024 Seat Belts Used Routinely Yes [email or web address] Information not available 09/09/2014 Are You Sexually Active? No [email or web address] Information not available 09/07/2023 Smoke Alarm In Home Yes Information not available 05/28/2017 At What Age Did You Start Smoking Tobacco? 0 Information not available 05/28/2017 Are You Passively Exposed To Smoke? No Information not available 05/28/2017 How Much Tobacco Do You Smoke? No Information not available 05/28/2017 General Stress Level High [email or web address] Information not available 09/08/2024 Do You Use Sunscreen Routinely? No [email or web address] Information not available 09/09/2014 How Many Years Have You Smoked Tobacco? 0 Information not available 05/28/2017 Sex: Unknown Functional Status Question Answer Note LastModified by Organizat ion Details LastModified Time Do you use any illicit or recreational drugs? No Information not available 06/08/2022 Do you or have you ever used any other forms of tobacco or nicotine? No Information not available 11/23/2021 What is your level of alcohol consumption? None [email or web address] Information not available 09/09/2014 Do you or have you ever used smokeless tobacco? Never used smokeless tobacco [email or web address] Information not available 02/04/2020 Are you currently employed? No retired Information not available 10/23/2018 Are you able to walk independently without assistance or assistive devices? YESWOREST [email or web address] Information not available 02/18/2021 Are you able to care for yourself independently? 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 Never used electronic cigarettes [email or web address] Information not available 08/12/2020 What is your exercise level? Occasional walking in warm weather Information not available 06/08/2022 Mental Status None recorded. Family History Relationship Description Onset Age of this Age Resolved Age Notes LastModified by Organization Details LastModified Time Mother Diabetes mellitus [email or web address] Not available 09/12 13:37:42 Sister Diabetes mellitus [email or web address] Not available 09/12 13:37:42 Sister Essential hypertension [email or web address] Not available 09:42:01 Sister Dementia [email or web address] Not availab le 02/18/2021 10:33:35 Brother Diabetes mellitus Not available 09/12 13:37:42 Brother Kidney disease [email or web address] Not available 09/12 13:37:42 Brother Disease of liver [email or web address] Not available 09/12 13:37:42 Notes:3 sisters with dementi a, unsure what type found out one sister has vascular dementia Medical History No medical history recorded. Gynecological History Statement/Question Response Date of Last Pap Smear 07/02/2019 Date of Last Colonoscopy 01/17/2023 Most Recent Mammogram 07/23/2024 Most Recent Bone Density 05/13/2020 Obstetrics History GPAL:G 0 P 0 0 0 0 Immunizations Vaccine Type Date Status Note Provider Name and Address Organization Details Recorded Time Influenza, high-dose, trivalent, PF 025 completed HUEY Santoyo [facility] 04/17/2025 13:48:15 Influenza, split virus, quadrivalent, preservative 019 completed Aisha matos, [facility] 05/14/2020 11:50:36 Influenza, adjuvanted, quadrivalent, PF 020 completed [facility] Juárez, [facility] 06/08/2022 10:10:29 COVID-19, mRNA, LNP-S, PF, 100 mcg/0.5mL dose or 50 mcg/0.25mL dose 021 completed HUEY Burkett [facility] 08/24/2021 09:19:52 COVID-19, mRNA, LNP-S, PF, 100 mcg/0.5mL dose or 50 mcg/0.25mL dose 021 completed HUEY Burkett [facility] 08/24/2021 09:19:52 Influenza, adjuvanted, quadrivalent, PF 021 completed HUEY Burkett [facility] 08/24/2021 09:19:52 COVID-19, mRNA, LNP-S, PF, 100 mcg/0.5mL dose or 50 mcg/0.25mL dose 021 completed HUEY Burkett [facility] 08/24/2021 09:19:52 Tdap 010 completed HUEY Burkett [facility] 08/24/2021 09:19:52 Influenza, split virus, trivalent, preservative 014 completed HUEY Burkett [facility] 08/24/2021 09:19:52 Influenza, split virus, quadrivalent, PF 016 completed Tatiana Tho-Yousif renate, HUEY matos [facility] 06/08/2022 10:10:29 Pneumococcal conjugate PCV 13 018 completed Tatiana Tho-Yousif os, HUEY matos [facility] 06/08/2022 10:10:29 Influenza, high-dose, trivalent, PF 018 completed Tatiana Tho-Yousif os, HUEY matos [facility] 06/08/2022 10:10:30 Td (adult), 2 Lf tetanus toxoid, preservative free, adsorbed 019 completed Tatiana Tho-Yousif os, HUEY matos [facility] 06/08/2022 10:10:30 pneumococcal polysaccharide PPV23 020 completed Tatiana Tho-Yousif os, HUEY matos [facility] 06/08/2022 10:10:30 Influenza, high-dose, quadrivalent, PF 022 completed Tatiana Noyola os, HUEY null, [facility] 06/08/2022 10:25:40 Influenza, split virus, quadrivalent, PF 017 cancelled patient objection Not Available [facility] 07/19/2019 02:22:08 Influenza, high-dose, quadrivalent, PF 023 completed COLLETTE BE MD [address], [place], [address], [facility] 03/14/2023 18:56:43 zoster recombinant 024 cancelled patient objection COLLETTE BE MD [address], [place], [address], [facility] 09/07/2023 10:44:31 Influenza, high-dose, trivalent, PF 024 completed Lluvia Colmenares MA null, [facility] 03/10/2024 11:23:02 varicella 001 completed Aisha Jacobs null, [facility] 05/14/2020 11:50:36 MMR 001 completed Aisha Jacobs null, [facility] 05/14/2020 11:50:36 Td (adult), 2 Lf tetanus toxoid, preservative free, adsorbed 001 completed Aisha Jacobs null, [facility] 05/14/2020 11:50:36 Influenza, split virus, trivalent, preservative 007 completed Aisha Jacobs null, [facility] 05/14/2020 11:50:36 Influenza, split virus, trivalent, preservative 010 completed Aisha Jacobs null, [facility] 05/14/2020 11:50:36 Influenza, split virus, trivalent, preservative 010 completed Aisha Jacobs null, [facility] 05/14/2020 11:50:37 Influenza, split virus, trivalent, preservative 012 completed Aisha matos, [facility] 05/14/2020 11:50:37 Influenza, split virus, trivalent, preservative 012 completed Aisha matos, [facility] 05/14/2020 11:50:36 influenza, seasonal, intradermal, preservative free 013 completed Aisha matos, [facility] 05/14/2020 11:50:36 Past Encounters Encounter ID Performer Location Encounter Start Date Encounter Closed Date Diagnosis/Indication Diagnosis SNOMED-CT Code Diagnosis ICD10 Code Diagnosis IMO Codes Diagnosis Note [id number] COLLETTE BE MD Main Office [address] [place] [address] 04/17/2025 13:36:44 04/17/2025 14:10:38 Essential hypertension 38391082 I10 - good control- BP today 119/74- previous BP medication :> HCTZ 25mg: was having low potassium> lisinopril 20mg: stopped as it was given patient heart palpitatio n's> losartan 50mg: stopped due to heart palpitatio ns, right arm numbness and fatigue> amlodipine 10mg: stopped due to lower extremity edema> chlorthali done 25mg: headaches, heart racing and diarrhea- c/w amlodipine 10mg QD Counselled on:-Dietar y Approaches to Stop Hypertensi on (DASH) is an eating plan rich in fruits, vegetables , whole grains, fish, poultry, nuts, legumes, and low-fat dairy. These foods are high in ivan nutrients such as potassium, magnesium, calcium, fiber, and protein.-A dvised continued adherence to medication s and low salt diet - extensive counsellin g done regarding dietary habits.-En couraged regular aerobic exercise 30 min for 4-5 x week.-BP monitoring at home advised to bring log at every visit-Side -effects of high BP can cause Stroke, Heart attack and even d/w pt-D/w pt when to call 911 or reach out to Health care provider:> Think you are having a reaction to a medicine you are taking.>Jose ve headaches that keep coming back (recurring ).>Feel dizzy.>Hav e swelling in your ankles.>Jose ve trouble with your vision. Palpitations [id number] R0 0.2 - now resolved- TSH is WNL- stress test was negative- ECHO showed increased right atrial pressure- holter monitor was normal Obstructiv e sleep apnea syndrome [id number] G47.33 - pt referred to sleep medicine-a gain for TUAN and sleep walking> please note patient was referred in the past but did not go Hyperlipidemia [id number] E78.5 Z00.00 - ASCVD score of 9.1%- lipid panel 08/2024: cholestero l-160, triglyceri vane-67, HDL-48, LDL-99- pt was previously on rosuvastat in 5mg however she stopped med as it gave a headache- pt declines statin therapy Pt counselled on:- Eat a heart-heal thy diet- Choose healthy fats. Avoid saturated fats that are found primarily in red meat, manzano, sausage, and full-fat dairy products. Advised to choose lean proteins like chicken, turkey, and fish when possible. Switch to low-fat or fat-free dairy. And use monounsatu rated fats like olive and canola oil for cooking.- Cut out the trans fats. Trans fats are found in fried food and processed foods, like cookies, crackers, and other snacks.- Eat more omega-3s. Counseled on eating more fish, including salmon, mackerel, akhtar ,nuts and seeds, like walnuts and flax seeds.- Increase your fiber intake. By eating more oats, brain, fruits, beans, and vegetables , can lower your LDL cholestero l levels.- Eat more fruits and veggies. 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 33871 - occurred on three occasions Pruritus ani 89229141 L2 9.0 309985 - pt believes she has a parasite- saw on two occasions she believes a worm- was previously testing for ova and parasite which was negative- ordered CBC to check on eosinophil s- recommende d to scotch tape test- ordered stool testing- do not believe this to be parasite however ordered testing due to patient's concern, if all negative will need to look into other possibilit ies Health Concerns Section Related Observation LastModified by Organization Detai ls LastModified Time None Recorded Concern Status LastModified by Organization Details LastModified Time None Recorded Payers Encounter Date Sequence Insurance Name Policy Number Policy Lezama Covered Member ID Lezama Member ID Guarantor Name 04/17/2025 1 [facility]: MEDICARE PPO BLUE (MEDICARE REPLACEMENT PPO) [id number] Demi Edwards [id number] Demi Edwards Notes Date Note Type Note Provider Name and Address Organization Details Recorded Time 04/17/2025 text/html Hypertension F/UReported by PatientPatient here for follow-up of elevated blood pressure. Pt is not exercising and is not adherent to a low-salt diet. Blood pressure is well controlled at home. Cardiac symptoms: heart palpitations. Patient denies: chest pain, headaches, lower extremity edema. Cardiovascular risk factors: obesity. Use of agents associated with hypertension: none. History of target organ damage: none. Please note patient is using a wrist BP cuff.ROS as noted in the HPI Demi Edwards is a 70 year old F presented to the clinic blood pressure check. Parasites in stool: Patient feels she still has a parasite in her body. Underwent stool ova and parasite testing which was negative. States she saw a small worm in her stool prior to flushing. Denies of any abdominal pain, nausea/vomiting, diarrhea, or constipation. No fever, chills, or sudden weight loss. COLLETTE BE MD [address] [address], [place], [address], [facility] [place] 04/17/2025 14:17:08 OBGyn Episode No OBEpisode recorded.
--- OUTSIDE RECORDS SUMMARY | 2025-06-22 18:18 | XMS_ITS | Clinical Summary ---
Author Organization [employer] Address [address] [place] [address] Care Team Providers Care Client Service Manager Name Role Phone Unavailable Primary Care Provider Unavailabl e Allergies Active Allergy Reactions Criticality Noted Date Comments Diclofenac Palpitations Low 11/25/2024 diclofenac Lisinopril Palpitations Low 11/25/2024 Losartan Palpitations Low 11/25/2024 losartan Medications lisinopril 20 MG tablet Take 20 mg by mouth Once per day. Active amLODIPine (Norvasc) 10 MG tablet Take 10 mg by mouth Once per day. Active fluticasone (Flonase) 50 MCG/ACT nasal spray SPRAY 2 SPRAYS INTO BOTH NOSTRILS ONCE A DAY X 90 DAYS Active hydrocortisone 0.5 % cream APPLY A THIN LAYER TO THE AFFECTED AREA(S) BY TOPICAL ROUTE 2 TIMES PER DAY Active triamcinolone (Kenalog) 0.1 % cream APPLY 1 APPLICATION TOPICALLY TWICE A DAY FOR 14 DAYS Active Sodium Fluoride (PreviDent 5000 Booster Plus) 1.1 % paste Apply 1 Application. to teeth 2 times daily. 112 g 3 Active Active Problems Problem Noted Date Diagnosed Date Cervical radiculopathy 03/17/2025 Acromioclavicular joint arthritis 08/27/2024 Allergic rhinitis 01/10/2023 Overview (03/17/2025): Other allergic rhinitis; Note: Date Diagnosed: 01/10/2023 3:54 PM (J30.89) Palpitations 07/20/2022 Disorder of left ear 03/23/2022 Overview (03/17/2025): Other specified disorders of left ear; Note: Date Diagnosed: 03/23/2022 5:11 PM (H93.8X2) Other specified disorders of eustachian tube, bi lateral 11/25/2021 Overview (03/17/2025): Other specified disorders of Eustachian tube, left ear; Note: Date Diagnosed: 11/25/2021 9:12 AM (H69.82) Otalgia of left ear 09/22/2021 Overview (03/17/2025): Otalgia, left ear; Note: Date Diagnosed: 09/22/2021 11:10 AM (H92.02) Acquired deformity of ankle and foot 11/12/2017 Obstructive sleep apnea syndrome 10/18/2017 Overview (03/17/2025): Obstructive sleep apnea (adult) (pediatric); Note: Date Diagnosed: 10/18/2017 4:37 PM (G47.33) Dependence on continuous pos itive airway pressure ventilation 10/14/2017 Overview (03/17/2025): CPAP 20 cm H2O Bilateral impacted cerumen 06/03/2015 Overview (03/17/2025): Impacted cerumen, bilateral; Note: Date Diagnosed: 06/03/2015 1:15 PM (H61.23) Dysphagia 06/03/2015 Overview (03/17/2025): Dysphagia, unspecified; Note: Date Diagnosed: 06/03/2015 1:17 PM (R13.10) Dysphonia 06/03/2015 Overview (03/17/2025): Hoarseness; Note: Date Diagnosed: 06/03/2015 1:17 PM (R49.0) Carpal tunnel syndrome 09/08/2013 Overview (03/17/2025): RECORDED 09/08/2013 1:16PM BY SHAWN COLMENARES, OFFICE VISIT Gastroesophageal reflux disease without esophagi tis 09/08/2013 Overview (03/17/2025): Gastro-esophageal reflux disease without esophagitis; Note: Date Diagnosed: 06/03/2015 1:17 PM (K21.9) Hypercalcemia 09/08/2013 Overview (03/17/2025): RECORDED 09/08/2013 1:16PM BY SHAWN COLMENARES, OFFICE VISIT Hydronephrosis 08/27/2013 Overview (03/17/2025): RECORDED 08/27/2013 9:52AM BY LAINEY BARRETT MD, OFFICE VISIT Atypical chest pain 06/11/2013 Overview (03/17/2025): IMPRESSION: REPRODUCIBLE, FEELS LIKE MUSCULAR, MOTRIN HELPS, IT IS IMPROVING AND CAME ON AFTER REACHING FOR OBJECT IN AN AWKWARD WAY, NO CONCERN FOR CARDIAC, MOTRIN PRN, RETURN IF NOT IMPROVED OR HAS A NEW DISCOMFORT. EKG WITH PROLONGED QT BUT NO SYMPTOMS, CALCIUM CHECKED 04/13 AND WAS 10.6 NO FURTHER WORKUP; RECORDED 06/11/2013 3:12PM BY LAINEY BARRETT MD, OFFICE VISIT Calcium deposits in tendon 06/11/2013 Overview (03/17/2025): STORY: KNEE; IMPRESSION: DISCUSSED X-RAY WITH PT. NO ARTHRITIS. BUT CALCIUM ON PATELLAR AND QUADRICEP TENDON. NOT CLEAR IF PATELLAR TENDINITIS OR OTHER ISSUE. CONSULT WITH ORTHO. SHE WILL CALL TO MAKE APPT; RECORDED 06/11/2013 2:10PM BY SHAWN COLMENARES, OFFICE VISIT Essential hypertension 05/07/2013 Overview (03/17/2025): IMPRESSION: BP WELL CONTROLLED CONTINUE MEDS; RECORDED 05/07/2013 3:26PM BY SHAWN COLMENARES, ANNOTATION/ADDENDUM Disorder of upper respiratory system 10/29/2012 Overview (03/17/2025): IMPRESSION: PT WITH CHRONIC ALLERGIES AND MILD SINUS SXS, WORSE PAST WEEK. EXPLAINED COULD VERY WELL BE VIRAL, ADVISED RE SX SUPPORT WITH REST, FLUIDS, NASAL SALINE AND CS SPRAY, OTC ANALGESIC. GIVEN HX THOUGH WILL TAKE ABX NOW, FEELS THOUGH IT IS A CLEAR EXACERBATION OF CHRONIC SXS. CALL FOR WORSENING/PRN.; RECORDED 10/29/2012 1:10PM BY LATONYA AGUILAR MA, ANNOTATION/ADDENDUM Encounter for general adult medical examination without abnormal findings 10/29/2012 Overview (03/17/2025): IMPRESSION: PAP, MAMMO AND COLONOSCOPY UTD, VITAMIN D, EXERCISE, INCREASE FIBER IN DIET TO HELPW ITH RECENT CONSTIPATION, [facility] AT [facility]; RECORDED 09/08/2013 2:02PM BY LAINEY BARRETT MD, OFFICE VISIT Acute pharyngitis 08/05/2012 Overview (03/17/2025): RECORDED 08/05/2012 3:29PM BY SHAWN COLMENARES, ANNOTATION/ADDENDUM Acute frontal sinusitis 06/03/2012 Overview (03/17/2025): Acute frontal sinusitis, unspecified; Note: Date Diagnosed: 01/25/2021 2:15 PM (J01.10) Acute pain 06/03/2012 Overview (03/17/2025): RECORDED 06/03/2012 11:32AM BY FABBY ESCOTO MA, ANNOTATION/ADDENDUM Edema 06/03/2012 Overview (03/17/2025): IMPRESSION: NO SIGNS OF CHF, DISC. SALT RESTRICTION, RECOMMEND COMPRESSION HOSE(HAS); RECORDED 06/03/2012 11:31AM BY FABBY ESCTOO MA, ANNOTATION/ADDENDUM Feces contents abnormal 06/03/2012 Overview (03/17/2025): RECORDED 06/03/2012 11:31AM BY FABBY ESCOTO MA, ANNOTATION/ADDENDUM Headache 06/03/2012 Overview (03/17/2025): RECORDED 06/03/2012 11:31AM BY FABBY ESCOTO MA, ANNOTATION/ADDENDUM Hip pain 06/03/2012 Overview (03/17/2025): IMPRESSION: X 2 MONTHS, APPEARS TO BE WORSENING. MAINLY LATERAL, BUT SOME ANTERIOR GROIN TENDERNESS AND RADIATION OF PAIN INTO ANTERIOR THIGH. CHECK XRAYS, ADVISED RE CAREFUL USE OF IBU (HX OF HTN). WILL CONTACT WITH RESULT WHEN AVAIL. HAS APPT WITH PCP FOR FULL PE LATER THIS MO.; RECORDED 06/03/2012 11:31AM BY FABBY ESCOTO MA, ANNOTATION/ADDENDUM Encounters Date Type Department Care Team Description 06/08/2025 1:30 PM EST Office Visit [facility] [address] [place] [address] Kem Montilla Dental calculus (Primary Dx) 03/24/2025 2:00 PM EDT Office Visit [facility] [address] [place] [id number] Amari Keita DMD from Last 3 Months Social History Tobacco Use Types Packs/Day Years Used Date Smoking Tobacco: Never Smokeless Tobacco: Never Tobacco Cessation:Counseling Given: Not Answered Comments Unknown Sex and Gender Information Value Date Recorded Sex Assigned at Female 09/08/2024 3:58 PM EDT Legal Sex Female 3:53 PM EDT Gender Identity Female 09/08/2024 3:58 PM EDT Sexual Orientation Choose not to disclose 2024 3:58 PM EDT Last Filed Vital Signs Vital Sign Reading Time Taken Comments Blood Pressure 134/70 06/08/2025 12:44 PM EST Pulse 70 06/08/2025 12:44 PM EST Temperature - - Respiratory Rate - - Oxygen Saturation - - Inhaled Oxygen Concentration - - Weight - - Height - - Body Mass Index - - Plan of Treatment Upcoming Encounters Date Type Department Care Team (Late st Contact Info) Description 07/09/2025 1:00 PM EST Office Visit [facility] [address] [place] [address] Francisca Perez DDS [address] [place] [address] 12/09/2025 1:30 PM EDT Office Visit [facility] [address], [place] [phone] Kem [facility] Due Date Last Done Comments CT Colonography 1953 Colonoscopy 1953 Colorectal Cancer Screening 1953 Depression Screening 1953 FIT DNA/Cologuard 1953 FIT 1953 FOBT 1953 Lipid Panel 1953 SDOH Screening 1953 Sigmoidoscopy 1953 Alcohol/Substance Use Screening 1965 Hepatitis C Screening 1971 Zoster Vaccines (1 of 2) 2003 COVID-19 Vaccine ( season) 2025 05/06/2021, 10/05/2020, 09/06/2020 Mammogram 07/19/2025 07/19/2023 Dental X-Ray: Bitewings 11/26/2025 11/25/2024 Dental Oral Exam 12/08/2025 06/08/2025, 11/25/2024 Dental Prophylaxis 12/08/2025 06/08/2025, 11/25/2024 Tobacco Screening 06/08/2026 06/08/2025 Dental X-Ray: Full Mouth 11/27/2027 11/25/2024 RSV Patients and Patients Aged 60 years or older (1 - 1-dose 75+ series) 01/02/2028 DTaP/Tdap/Td Vaccines (3 - Td or Tdap) 05/23/2029 05/23/2019, 07/02/2009, 04/10/2001 Pneumococcal Vaccine: 50+ Years Completed 02/04/2020, 05/20/2018 Influenza Vaccine Completed 04/17/2025, , 03/12/2023, Additional history exists HIB Vaccines Aged Out No longer eligi ble based on patient's age to complete this topic HPV Vaccines Aged Out No longer eligi ble based on patient's age to complete this topic Hepatitis A Vaccines Aged Out No long er eligible based on patient's age to complete this topic Hepatitis B Vaccines Aged Out No long er eligible based on patient's age to complete this topic IPV Vaccines Aged Out No longer eligi ble based on patient's age to complete this topic Meningococcal B Vaccine Aged Out No l onger eligible based on patient's age to complete this topic Meningococcal Vaccine Aged Out No stacey michoacano eligible based on patient's age to complete this topic RSV under 20 months Aged Out No longe r eligible based on patient's age to complete this topic Rotavirus Vaccines Aged Out No longer eligible based on patient's age to complete this topic Procedures Procedure Name Priority Date/Time Associated Diagnosis Comments ORAL HYGIENE INSTRUCTIONS Routine 2024 1:30 PM EST Full PROPHYLAXIS - ADULT Routine 025 1:30 PM EST CASE PRESENTATION, DETAILED AND EXTENSIVE TREATMENT PLANNING Routine 06/08/2025 1:30 PM EST PERIODIC ORAL EVALUATION - ESTABLISHED PATIENT Routine 06/08/2025 1:30 PM EST 32 O COMPOSITE FILLING Routine 12:00 AM EST 31 O COMPOSITE FILLING Routine 12:00 AM EST 28 O AMALGAM FILLING Routine 06/08/2025 12:00 AM EST 12 DO AMALGAM FILLING Routine 06/08/2025 12:00 AM EST 18 O AMALGAM FILLING Routine 06/08/2025 12:00 AM EST CASE PRESENTATION, DETAILED AND EXTENSIVE TREATMENT PLANNING Routine 03/24/2025 2:00 PM EDT 29 DO AMALGAM - 2 SURF, PRIMARY OR PERMANENT Routine 03/24/2025 2:00 PM EDT INTRAORAL - COMPLETE SERIES OF RADIOGRAPHIC IMAGES Routine 11/25/2024 5:00 PM EDT from Last 3 Months or Most Recently Relevant to Health Maintenance Insurance DENTAL - [employer]BS DENTAL DENTAL - HSN FULL (MEDICAID)
--- OUTSIDE RECORDS SUMMARY | 2025-06-22 18:18 | XMS_ITS | Data Portability ---
Author Organization [place] - [facility] Address [address] [address] Care Team Providers Care Report Specialist Name Role Phone ALEJANDRA MORALES Primary Care Provider Assessment Encounter Date Assessment Date Assessment LastModified by Organization Details LastModified Time 12/26/2023 12/26/2023 68-year-old female presents for cerumen removal. Cerumen impaction removed bilaterally. Bilateral TMs are intact with well aerated middle ear spaces. Follow-up in six months for routine debridement, or sooner with concerns. [email or web address] Not available 12/26/2023 12:18:27 08/14/2024 08/14/2024 69-year-old female presents for cerumen removal. Cerumen impaction removed bilaterally. Bilateral TMs are intact with well aerated middle ear spaces. Follow-up in six months for routine debridement, or sooner with concerns. Not available 08/14/2024 14:27:40 02/13/2025 02/13/2025 70-year-old female presents for cerumen removal. Cerumen impaction removed bilaterally. Bilateral TMs are intact with well aerated middle ear spaces. Follow-up in six months for routine debridement, or sooner with concerns. Patient with allergic rhinitis. Requesting refill of Flonase which were provided today. [email or web address] Not available 02/13/2025 12:30:49 Plan of Treatment Reminders Order Date Submit Date Provider Last Modified By Organization Details Last Modified Time Details Appointments Establish ed 15 2025 11:15A SHAMIKA ANDRADE Not available Not available Not available Lab None recorded. Referral None recorded. Procedures None recorded. Surgeries None recorded. Imaging None recorded. Medication Orders Flonase Allergy Relief 50 mcg/actua tion nasal spray,yennifer pension 2024 025 [id number], [address] [place], [address], 02/13/2025 12:35:17 Patient TargetsNo targets recorded. Patient InstructionsNo instructions recorded. Reason for Referral None Reported. Results Created Date Observation Date Name Description Value Unit Range Abnormal Flag Note LastModifiedBy Organization Detail LastModifiedTime 02/20/20 24 09/21/2023 imagi ng/di agnos tic resul t No observ ation record ed. [email or web address] Not Available 07:43:55 02/20/20 24 09/21/2023 imagi ng/di agnos tic resul t No observ ation record ed. [email or web address] Not Available 07:43:56 02/20/20 24 11/25/2021 imagi ng/di agnos tic resul t No observ ation record ed. [email or web address] Not Available 07:44:07 02/20/20 24 03/23/2022 imagi ng/di agnos tic resul t No observ ation record ed. [email or web address] Not Available 07:44:12 02/20/20 24 11/25/2021 audio gram No observ ation record ed. [email or web address] Not Available 07:44:42 02/20/20 24 03/23/2022 audio gram No observ ation record ed. [email or web address] Not Available 07:44:57 Result Notes None recorded. Problems Name Problem SNOMED Code Status Onset Date Resolution Date Notes Provider Name and Address Organization Details Recorded Time Chronic rhinitis 71100166 Active 2013 Rhinitis, chronic; Note: Date Diagnosed : 05/08/2014 10:00 AM (472.0) Not Available [facility] 02:18:48 Impacted cerumen 07395123 Active 2014 Impacted cerumen; CMS Risk: low risk CMS Treatment : new problem (to examiner) : no additiona l workup planned Impacted cerumen; CMS Risk: low risk CMS Treatment : new problem (to examiner) : no additiona l workup planned ; Start Date : 4 Not Available [facility] 4 02:18:55 Impacted cerumen of bilateral ears 43784357057 43360 Active 2014 Impacted cerumen, bilateral ; Note: Date Diagnosed : 06/03/2015 1:15 PM (H61.23) Not Available [facility] 4 02:18:41 Dysphagia 51257443 Active 2014 Dysphagia , unspecifi ed; Note: Date Diagnosed : 06/03/2015 1:17 PM (R13.10) Not Available [facility] 4 02:18:32 Dysphonia 08391213 Active 2014 Hoarsenes s; Note: Date Diagnosed : 06/03/2015 1:17 PM (R49.0) Not Available [facility] 4 02:19:00 Gastroeso phageal reflux disease without esophagit is 003299154 Active 2014 Gastro-es ophageal reflux disease without esophagit is; Note: Date Diagnosed : 06/03/2015 1:17 PM (K21.9) Not Available [facility] 4 02:18:49 Sensorine ural hearing loss of bilateral ears 563986788 Active 2015 Sensorine ural hearing loss, bilateral ; Note: Date Diagnosed : 04/07/2016 2:28 PM (H90.3) Not Available [facility] 4 02:18:43 Obstructi ve sleep apnea syndrome 85941827 Active 2017 Obstructi ve sleep apnea (adult) (pediatri c); Note: Date Diagnosed : 10/18/2017 4:37 PM (G47.33) Not Available [facility] 4 02:19:02 Abnormal auditory perceptio n 10117393 Active 2019 Other abnormal auditory perceptio ns, bilateral ; Note: Date Diagnosed : 08/13/2019 2:16 PM (H93.293) Not Available [facility] 4 02:18:17 Acute frontal sinusitis 91443401 Active 2020 Acute frontal sinusitis , unspecifi ed; Note: Date Diagnosed : 01/25/2021 2:15 PM (J01.10) Not Available [facility] 4 02:18:14 Otalgia of left ear 1046813293 Active 2021 Otalgia, left ear; Note: Date Diagnosed : 09/22/2021 11:10 AM (H92.02) Not Available [facility] 4 02:18:28 Bilateral disorder of Eustachia n tubes 55896108650 47599 Active 2021 Other specified disorders of Eustachia n tube, bilateral ; Note: Date Diagnosed : 11/25/2021 9:21 AM (H69.83) Not Available [facility] 4 02:18:12 Disorder of left Eustachia n tube 22061609766 21180 Active 2021 Other specified disorders of Eustachia n tube, left ear; Note: Date Diagnosed : 11/25/2021 9:12 AM (H69.82) Not Available [facility] 4 02:18:48 Disorder of left ear 01242921592 39477 Active 2021 Other specified disorders of left ear; Note: Date Diagnosed : 03/23/2022 5:11 PM (H93.8X2) Not Available [facility] 4 02:19:03 Allergic rhinitis 82169256 Active 2022 Other allergic rhinitis; Note: Date Diagnosed : 01/10/2023 3:54 PM (J30.89) Not Available [facility] 4 02:18:12 Problem Notes None recorded. Procedures Surgical History Date Name Laterality Status Provider Name and Address Organization Details Recorded Time 5 Cerumen removal without microscope bilat completed LISA FLAHERTY PA-C [address] [place] [address], [phone], [place] - [facility] 02/13/2025 12:35:27 5 Cerumen removal without microscope bilat completed LISA FLAHERTY PA-C [address] [place], [place] [address] [address], [place], [address], [facility] - [facility] 08/14/2024 14:27:30 4 Cerumen removal without microscope bilat completed [facility]HERTY [facility]C [address] [facility] [place] [address], [place], [phone], [facility] - [facility] 12/26/2023 12:17:44 Imaging Results None recorded. Procedure Notes None recorded. Medical Equipment None Reported. Medications Name Sig Start Date Stop Date Status Note LastModified by Organization Details LastModified Time losartan 50 mg tablet TAKE 1 TABLET BY MOUTH EVERY DAY FOR 30 DAYS 08/11 completed Not Available Not Available Not Available nystatin 100,000 unit/mL oral suspensio n 2021 active Medicati on ID: [id number] B rand Name: nystatin Send Method: E-Prescr ibed Sub s Allowed: subs OK Medic ationGen ericName : nystatin Not Available Not Available Not Available doxycycli ne hyclate 100 mg capsule 08/11 completed Medicati on ID: [id number] D uration Value: 10 Prescri bed By Name: JULEE Chairez nd Name: doxycycl ine hyclate Send Method: E-Prescr ibed Sub s Allowed: subs OK Speci al Instruct ion: Take 1 po BID X 10 days Med icationG enericNa me: doxycycl ine hyclate Not Available Not Available Not Available chlorthal idone 25 mg tablet TAKE 1 TABLET BY MOUTH EVERY DAY FOR 30 DAYS 08/11 completed Not Available Not Available Not Available amlodipin e 5 mg tablet TAKE 1 TABLET BY MOUTH EVERY DAY 08/11 completed Not Available Not Available Not Available triamcino lone acetonide 0.1 % topical cream APPLY 1 APPLICAT ION TOPICALL Y TWICE A DAY FOR 14 DAYS active Not Available Not Available No t Available amlodipin e 10 mg tablet TAKE 1 TABLET BY MOUTH EVERY DAY active Not Available Not Available No t Available lisinopri l 10 mg tablet 08/11 completed Medicati on ID: [id number] B rand Name: lisinopr il Send Method: E-Prescr ibed Sub s Allowed: subs OK Medic ationGen ericName : lisinopr il Not Available Not Available Not Available oxybutyni n chloride ER 5 mg tablet,ex tended release 24 hr TAKE 1 TABLET BY MOUTH EVERY DAY 08/11 completed Not Available Not Available Not Available lisinopri l 5 mg tablet 01/25 completed Medicati on ID: [id number] Du ration Value: 30 Brand Name: lisinopr il Send Method: E-Prescr ibed Sub s Allowed: subs OK Medic ationGen ericName : lisinopr il Not Available Not Available Not Available fluticaso ne propionat e 50 mcg/actua tion nasal spray,yennifer pension SPRAY 2 SPRAYS INTO BOTH NOSTRILS ONCE A DAY X 90 DAYS active Not Available Not Available No t Available rosuvasta tin 5 mg tablet TAKE 1 TABLET BY MOUTH EVERY DAY active Not Available Not Available No t Available DermOtic Oil 0.01 % ear drops 5 drop 08/11 completed Medicati on ID: [id number] Du ration Value: 1 Prescri bed By Name: JULEE Delgado nd Name: DermOtic Oil Send Method: E-Prescr ibed Sub s Allowed: subs OK Speci al Instruct ion: 5 drops into both ears 2 times a week and as needed M edicatio nGeneric Name: DermOtic Oil Not Available Not Available Not Available Flovent Diskus 50 mcg/actua tion powder for inhalatio n 2 spray into both nostrils once a day 01/25 completed Medicati on ID: [id number] Br and Name: Flonase Send Method: E-Prescr ibed Sub s Allowed: subs OK Medic ationGen ericName : Flonase Not Available Not Available Not Available omeprazol e 20 mg tablet,de layed release 08/12 completed Medicati on ID: [id number] Gerardo navarro By Name: Demraio Sim MD Brand Name: omeprazo le Send Method: E-Prescr ibed Sub s Allowed: subs OK Speci al Instruct ion: Take 1 tablet by mouth every day before a meal Med icationG enericNa me: omeprazo le Not Available Not Available Not Available Marie G 236 gram-22.7 4 gram-6.74 gram-5.86 gram oral solution TAKE 8 OUNCE BY MOUTH DIRECTED FOLLOW INSTRUCT IONS PROVIDED TO YOU [facility] 08/11 completed Not Available Not Available Not Available Vitals Date Recorded Body height Body mass index (BMI) Body weight Provider Name and Address Organization Details Last Updated DateTime 02/13/2025 170.18 cm 26.5 kg/m2 61624.11 g Jyoti Yates [place] - [facility] 02/13/2025 11:50:16 Social History None recorded. Functional Status None recorded. Mental Status None recorded. Family History Relationship Description Onset Age of this Age Resolved Age Notes LastModified by Organization Details LastModified Time Mother Diabetes mellitus [email or web address] Not available 2024 11:50:20 Brother Blood coagulation disorder [email or web address] Not available 2024 11:50:20 Medical History Condition Response Allergies/Hayfever Y Heart Problems N Anxiety N Tonsil Infections N Emphysema N Migraines N Thyroid Problems Y Glaucoma N Depression N COPD N Nasal or Sinus Problems Y Anemia N Immune System Disorder N Anesthesia Complications N Heart Attack ([place]) N Other Skin Condition N Diabetes N Rhinitis N Bleeding Disorder N Food Allergy N Arthritis Y Hearing Loss Y Hyperlipidemia N Stroke N Dementia N Nasal polyps N Asthma N High Cholesterol Y Sleep Disorder N GERD/Reflux Y Liver Disease N Headaches Y Fibromyalgia N Hypertension Y Speech Delay N Kidney Disease N Gynecological HistoryNo gynecological history recorded. Obstetrics History GPAL:G 0 P 0 0 0 0 Past Encounters Encounter ID Performer Location Encounter Start Date Encounter Closed Date Diagnosis/Indication Diagnosis SNOMED-CT Code Diagnosis ICD10 Code Diagnosis IMO Codes Diagnosis Note [id number] LISA FLAHERTY PA-C [facility] [address] [address] 12/26/2023 11:27:10 12/26/2023 11:51:06 Impacted cerumen of bilateral ears [id number] 049283 H61.23 [id number] LISA FLAHERTY PA-C [facility] [address] [address] 08/14/2024 14:05:45 08/14/2024 14:48:47 Impacted cerumen of bilateral ears 1729431470 474717 H61.23 [id number] LISA FLAHERTY PA-C [facility] [address] [address] 02/13/2025 11:21:30 02/13/2025 12:02:09 Impacted cerumen of bilateral ears 9175021063 887975 H61.23 Allergic rhinitis 751363 04 J30.89 Health Concerns Section Related Observation LastModified by Organization Detai ls LastModified Time None Recorded Concern Status LastModified by Organization Details LastModified Time None Recorded Advance Directives Directive None Recorded Payers Insurance Date Sequence Insurance Name Policy Number Policy Lezama Covered Member ID Lezama Member ID Guarantor Name 02/19/2025 1 [place] (MEDICARE REPLACEMENT PPO) [id number] Demi Edwards [id number] Demi Edwards 02/19/2025 2 [place] [facility] Demi Edwards [id number] Demi Edwards Notes Date Note Type Note Provider Name and Address Organization Details Recorded Time 12/26/2023 text/html ROS as noted in the HPI 68 year old female presents for cerumen removal. No concerns today. FRAN IGLESIAS MD [address] [place] [address], [phone], [facility] 12/26/2023 12:28:34 08/14/2024 text/html ROS as noted in the [facility] 69 year old female presents for cerumen removal. No concerns today. ROLLY SMITH MD [address] [place] [address], [phone], [facility] 08/15/2024 15:04:21 02/13/2025 text/html ROS as noted in the [facility] 70 year old female presents for cerumen removal. No otologic concerns today. Patient with allergic rhinitis. Patient reports positive allergy testing at [facility] in 2022. She uses Flonase as needed and requested refill. MONSTER PEDERSON MD [address] [place] [address], [phone], [facility] - [facility] 02/16/2025 07:34:48 OBGyn Episode No OBEpisode recorded.
--- OUTSIDE RECORDS SUMMARY | 2025-06-22 18:18 | XMS_ITS | Continuity of Care Document ---
Author Organization [facility], Main Office Address [address] [place] [address] Care Team Providers Care Digital X Ray Service Engineer Name Role Phone KALA JACOBS Well Digger JOSEPH RASHID Urologist THOMAS CARDIOVAS CULAR [facility] Car Storer ABIGAIL HAIDER Yoker TONNY NOVA Well Digger ALEJANDRA MORALES Primary Care Provider RYLEE ROBERTS Patient Service Representative Assessment No assessment recorded. Plan of Treatment Reminders Order Date Submit Date Provider Last Modified By Organization Details Last Modified Time Details Appointments [id number] 2025 10:15A M ALEJANDRA MORALES MD Not available Not available Not available Lab None recorded. Referral None recorded. Procedures None recorded. Surgeries None recorded. Imaging XR, shoulder, 2 or more view - Pt presentin g with acute severe left shoulder pain radiating to arm. Limited ROM of shoulder. Obtaining XR to r/o acute pathology , evaluate for degenerat hailee changes [address] [facility] Radiology, [address] , [place], [address], 06/15/2025 15:46:03 Medication Orders None recorded. Patient TargetsNo targets recorded. Patient Instructions Encounter Date Encounter Id Patient Instructions Last Modified By Organization Details Last Modified Time 06/15/2025 [id number] Follow up if no improvement or if symptoms worsen. Reviewed signs and symptoms that should prompt seeking emergency medical care. Patient demonstrates understanding of plan of care. [email or web address] Not available 06/15/2025 16:02:44 Reason for Referral None Reported. Results Created Date Observation Date Name Description Value Unit Range Abnormal Flag Note LastModifiedBy Organization Detail LastModifiedTime 06/15/2006/15/2025 XR, shoul amanda, 2 or more view No observ ation record ed. [facility] [place] [address], [place], [address], 06/17/2025 17:11:36 06/15/2006/15/2025 XR, shoul amanda, 2 or more view [...] n of the rotato r cuff. IMPRES JOHN: No acute osseou s abnorm ality involv ing the left should er. WSN: [id number] Orderi ng Physic tatiana: Deyanira Jc Dictat ed By: Angel Grady MD, V Dictat ed Date/T paige: 3:40 pm Review ed By: Cristy maddox MD, Angel Anand Signed By: Angel Grady MD, V Signed Date/T paige: 3:40 pm Transc ribed By: JOVANNI Transc ribed Date/T paige: 3:40 pm Patien t Class: Outpat ient [facility] (Outpt Imaging) [address], [place], [address], 06/17/2025 17:11:36 Result Notes Documentation Provider Name and Address Organization Details Recorded Time Xr, Shoulder, 2 Or More View : Shoulder Min 2 Views Left, 2 views Reason: pain in left shoulder - COMPARISON: None. FINDINGS: No fracture or dislocation. No arthritic change of the glenohumeral joint. Normal AC joint and portions of the clavicle included on the exam. No calcification of the rotator cuff. IMPRESSION: No acute osseous abnormality involving the left shoulder. WSN: [id number] Ordering Physician: Deyanira Staton Dictated By: Angel Albarado MD, V Dictated Date/Time: 06/15/25 3:40 pm Reviewed By: Angel Albarado MD, V Signed By: Angel Albaraod MD, V Signed Date/Time: 06/15/25 3:40 pm Transcribed By: JOVANNI Transcribed Date/Time: 06/15/25 3:40 pm Patient Class: Outpatient DEYANIRA STATON, [facility] [address], [address] 06/17/2025 09:19:52 Problems Name Problem SNOMED Code Status Onset Date Resolution Date Notes Provider Name and Address Organization Details Recorded Time Lighthea dedness 344640670 Completed 09/26/2018 Rita matos [facility] 9 09:31:22 Cervical radiculo charlene 41331554 Completed 09/13/2015 Aisha matos [facility] 6 11:09:53 Atypical chest pain 681857639 Completed 09/13/2015 Aisha matos [facility] 6 11:09:53 Hypercho lesterol emia 34824442 Completed 09/13/2015 Aisha matos [facility] 6 11:09:53 Muscle pain 60342770 Completed 09/13/2015 Aisha matos [facility] 6 11:09:53 Mantoux: positive 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 ; RECORDED 08/20/19 09 2:56PM BY HUEY ETIENNE ANNOTANNIKA ON/ADDEN DUM Aisha matos [facility] 6 11:09:54 Generali zed abdomina l pain 759838361 Completed 200802/09/2014 IMPRESSI ON: MORE FOOD INTOLERA NCE, PT TO LIMIT CHOICES THAT UPSET HER STOMACH. ; RECORDED 08/20/19 09 2:56PM BY RAMESH DIAZ ON/ADDEN DUM Aishaken matos, [facility] 6 11:09:54 General examinat ion of patient Completed 200801/20/2014 IMPRESSI ON: PAP, MAMMO AND COLONOSC OPY UP TO DATE, NEED TO INCREASE EXERCISE . TD UTD, WILL KEEP LOOKING FOR WORK. START MORE EXERCISE AND STRETCHI NG; RECORDED 04/13/20 09 10:37AM BY RAMESH BURKETT ON/ADDEN DUM Aisha matos [facility] 6 11:09:54 General examinat ion of patient Completed 200802/09/2014 IMPRESSI ON: PAP, MAMMO AND COLONOSC OPY UP TO DATE, NEED TO INCREASE EXERCISE . TD UTD, WILL KEEP LOOKING FOR WORK. START MORE EXERCISE AND STRETCHI NG; RECORDED 04/13/20 09 10:37AM BY RAMESH BURKETT ON/ADDEN DUM Aisha matos [facility] 6 11:09:54 Nonspeci fic tubercul in test reaction [id number] Completed 201101/20/2014 IMPRESSI ON: CONFIRME D WITH TB CLINIC OK TO GET XRAY ONLY.; RECORDED 06/03/20 12 11:31AM BY FABBY ESCOTO MA, ANNOTATI ON/ADDEN DUM Aisha matos [facility] 6 11:09:54 Acute pain 851253337 Completed 201101/20/2014 RECORDED 06/03/20 12 11:32AM BY FABBY ESCOTO MA, ANNOTATI ON/ADDEN DUM Aishaken matos, [facility] 6 11:09:53 Acute sinusiti s 16453191 Completed 201101/20/2014 RECORDED 06/03/20 12 11:31AM BY FABBY ESCOTO MA, ANNOTATI ON/ADDEN DUM Aisha Jacobs null, [facility] 6 11:09:53 Synovial cyst of poplitea l space Completed 201101/20/2014 RECORDED 06/03/20 12 11:31AM BY FABBY ESCOTO MA, ANNOTATI ON/ADDEN DUM Aisha Jacobs null, [facility] 6 11:09:53 Screenin g for malignan t neoplasm of breast Completed 201101/20/2014 RECORDED 06/03/20 12 11:32AM BY FABBY ESCOTO MA, RAMESH ON/ADDEN DUM Aishaesmer Jacobs null, [facility] 6 11:09:54 Kidney stone 25481993 Completed 201101/20/2014 RECORDED 06/03/20 12 11:31AM BY FABBY ESCOTO MA, ANNOTATI ON/ADDEN DUM Rita watkins null, [facility] 9 09:31:27 Impacted cerumen 28301579 Completed 201101/20/2014 RECORDED 06/03/20 12 11:31AM BY FABBY ESCOTO MA, RAMESH ON/ADDEN DUM Aishaesmer Jacobs null, [facility] 6 11:09:53 Screenin g for malignan t neoplasm of cervix Completed 201101/20/2014 RECORDED 06/03/20 12 11:32AM BY FABBY ESCOTO MA, ANNOTATI ON/ADDEN DUM Shawn Colmenares MA null, [facility] 7 15:25:21 Edema 476298592 Completed 201101/20/2014 IMPRESSI ON: NO SIGNS OF CHF, DISC. SALT RESTRICT ION, RECOMMEN D COMPRESS ION HOSE(HAS ); RECORDED 06/03/20 12 11:31AM BY FABBY ESCOTO MA, ANNOTATI ON/ADDEN DUM Aisha Jacobs carol, [facility] 6 11:09:53 Headache 72972386 Completed 201101/20/2014 RECORDED 06/03/20 12 11:31AM BY FABBY ESCOTO MA, ANNOTATI ON/ADDEN DUM Aisha Jacobs carlo, [facility] 6 11:09:53 Pain of hip region 95873067 Completed 201101/20/2014 IMPRESSI ON: X 2 MONTHS, APPEARS TO BE WORSENIN G. MAINLY LATERAL, BUT SOME ANTERIOR GROIN TENDERNE SS AND RADIATIO N OF PAIN INTO ANTERIOR THIGH. CHECK XRAYS, ADVISED RE CAREFUL USE OF IBU (HX OF HTN). WILL CONTACT WITH RESULT WHEN AVAIL. HAS APPT WITH PCP FOR FULL PE LATER THIS MO.; RECORDED 06/03/20 12 11:31AM BY FABBY ESCOTO MA, RAMESH ON/ADDEN DUM Aishaken matos [facility] 6 11:09:53 Lateral epicondy litis 750812524 Completed 201101/20/2014 RECORDED 06/03/20 12 11:32AM BY FABBY ESCOTO MA, ANNOTATI ON/ADDEN DUM Aisha Reynaldo matos [facility] 6 11:09:53 Polyuria 03073624 Completed 201101/20/2014 RECORDED 06/03/20 12 11:32AM BY FABBY ESCOTO MA, ANNOTATI ON/ADDEN DUM Aisha Jacobsken matos, [facility] 6 11:09:53 Sciatica 69788729 Completed 201101/20/2014 RECORDED 06/03/20 12 11:32AM BY FABBY ESCOTO MA, ANNOTATI ON/ADDEN DUM Aishaken matos [facility] 6 11:09:53 Chronic sinusiti s 20900465 Completed 201101/20/2014 RECORDED 06/03/20 12 11:31AM BY FABBY ESCOTO MA, ANNOTATI ON/ADDEN DUM Aisha Jacobs null, [facility] 6 11:09:53 Feces contents abnormal 324881181 Completed 201101/20/2014 RECORDED 06/03/20 12 11:31AM BY FABBY ESCOTO MA, RAMESH ON/ADDEN DUM Aisha Jacobs null, [facility] 6 11:09:54 Psychoge hamlet headache 16334126 Completed 201101/20/2014 IMPRESSI ON: TALKED ABOUT EXERCISE , STRETCHI NG; RECORDED 06/03/20 12 11:31AM BY FABBY ESCOTO MA, RAMESH ON/ADDEN DUM Aisha Jacobs null, [facility] 6 11:09:53 Chronic disease of tonsils AND/OR adenoids 29306582 Completed 201101/20/2014 RECORDED 06/03/20 12 11:31AM BY FABBY ESCOTO MA, RAMESH ON/ADDEN DUM Aisha Jacobs null, [facility] 6 11:09:53 Nonspeci fic tubercul in test reaction [id number] Completed 201102/09/2014 IMPRESSI ON: CONFIRME D WITH TB CLINIC OK TO GET XRAY ONLY.; RECORDED 06/03/20 12 11:31AM BY FABBY ESCOTO MA, RAMESH ON/ADDEN DUM Aisha Jacobs null, [facility] 6 11:09:54 Acute pain 371587437 Completed 201102/09/2014 RECORDED 06/03/20 12 11:32AM BY FABBY ESCOTO MA, RAMESH ON/ADDEN DUM Aisha Jacobs null, [facility] 6 11:09:53 Acute sinusiti s 60644005 Completed 201102/09/2014 RECORDED 06/03/20 12 11:31AM BY FABBY ESCOTO MA, RAMESH ON/ADDEN DUM Aisha Jacobs null, [facility] 6 11:09:53 Synovial cyst of poplitea l space Completed 201102/09/2014 RECORDED 06/03/20 12 11:31AM BY FABBY ESCOTO MA, ANNOTATI ON/ADDEN DUM Aisha Jacobs null, [facility] 6 11:09:53 Screenin g for malignan t neoplasm of breast Completed 201102/09/2014 RECORDED 06/03/20 12 11:32AM BY FABBY ESCOTO MA, ANNOTATI ON/ADDEN DUM Aishaken Jacobs null, [facility] 6 11:09:54 Kidney stone 26517800 Completed 201102/09/2014 RECORDED 06/03/20 12 11:31AM BY FABBY ESCOTO MA, ANNOTATI ON/ADDEN DUM Rita Saeid-Georgie watkins null, [facility] 9 09:31:27 Impacted cerumen 20933808 Completed 201102/09/2014 RECORDED 06/03/20 12 11:31AM BY FABBY ESCOTO MA, ANNOTATI ON/ADDEN DUM Aishaken Jacobs null, [facility] 6 11:09:53 Screenin g for malignan t neoplasm of cervix Completed 201102/09/2014 RECORDED 06/03/20 12 11:32AM BY FABBY ESCOTO MA, ALTAGRACIAATI ON/ADDEN DUM Shawn Colmenares MA null, [facility] 7 15:25:21 Edema 750416397 Completed 201102/09/2014 IMPRESSI ON: NO SIGNS OF CHF, DISC. SALT RESTRICT ION, RECOMMEN D COMPRESS ION HOSE(HAS ); RECORDED 06/03/20 12 11:31AM BY FABBY ESCOTO MA, ANNOTANNIKA ON/ADDEN DUM Aishaesmer Jacobs null, [facility] 6 11:09:53 Headache 67451986 Completed 201102/09/2014 IMPRESSI ON: TENSION PT TO WORK ON WALKING OTHER EXERCISE ; RECORDED 06/03/20 12 11:31AM BY FABBY ESCOTO MA, ANNOTATI ON/ADDEN DUM Aisha Jacobs null, [facility] 6 11:09:53 Pain of hip region 29490061 Completed 201102/09/2014 IMPRESSI ON: X 2 MONTHS, APPEARS TO BE WORSENIN G. MAINLY LATERAL, BUT SOME ANTERIOR GROIN TENDERNE SS AND RADIATIO N OF PAIN INTO ANTERIOR THIGH. CHECK XRAYS, ADVISED RE CAREFUL USE OF IBU (HX OF HTN). WILL CONTACT WITH RESULT WHEN AVAIL. HAS APPT WITH PCP FOR FULL PE LATER THIS MO.; RECORDED 06/03/20 12 11:31AM BY FABBY ESCOTO MA, ANNOTATI ON/ADDEN DUM Aisha Ajcobs null, [facility] 6 11:09:53 Lateral epicondy litis 756645730 Completed 201102/09/2014 RECORDED 06/03/20 12 11:32AM BY FABBY ESCOTO MA, ANNOTATI ON/ADDEN DUM Aisha Jacobs null, [facility] 6 11:09:53 Polyuria 18142883 Completed 201102/09/2014 RECORDED 06/03/20 12 11:32AM BY FABBY ESCOTO MA, ANNOTATI ON/ADDEN DUM Aisha Jacobs null, [facility] 6 11:09:54 Sciatica 08897634 Completed 201102/09/2014 RECORDED 06/03/20 12 11:32AM BY FABBY ESCOTO MA, ANNOTATI ON/ADDEN DUM Aisha Reynaldo matos, [facility] 6 11:09:53 Chronic sinusiti s 29804341 Completed 201102/09/2014 RECORDED 06/03/20 12 11:31AM BY FABBY ESCOTO MA, ANNOTATI ON/ADDEN DUM Aisha Reynaldo null, [facility] 6 11:09:53 Feces contents abnormal 546595132 Completed 201102/09/2014 RECORDED 06/03/20 12 11:31AM BY FABBY ESCOTO MA, ANNOTATI ON/ADDEN DUM Aisha Jacobs null, [facility] 6 11:09:54 Psychoge hamlet headache 75746533 Completed 201102/09/2014 IMPRESSI ON: TALKED ABOUT EXERCISE , JOSELINXin KEN; RECORDED 06/03/20 12 11:31AM BY FABBY ESCOTO MA, RAMESH ON/ADDEN DUM Aisha Jacobs null, [facility] 6 11:09:53 Chronic disease of tonsils AND/OR adenoids 28585706 Completed 201102/09/2014 RECORDED 06/03/20 12 11:31AM BY FABBY ESCOTO MA, RAMESH ON/ADDEN DUM Aisha Jacobs null, [facility] 6 11:09:53 Acute pharyngi tis 303188307 Completed 201201/20/2014 RECORDED 08/05/19 13 3:29PM BY RAMESH BURKETT ON/ADDEN DUM Aisha Jacobs null, [facility] 6 11:09:53 Acute pharyngi tis 338732627 Completed 201202/09/2014 RECORDED 08/05/19 13 3:29PM BY RAMESH BURKETT ON/ADDEN DUM Aisha Jacobs null, [facility] 6 11:09:53 Patient status finding 468680537 Completed 201201/20/2014 RECORDED 10/30/19 13 1:10PM BY LATONYA AGUILAR MA, RAMESH ON/ADDEN DUM Aisha Jacobs null, [facility] 6 11:09:54 Screenin g for malignan t neoplasm of colon Completed 201201/20/2014 RECORDED 10/30/19 13 1:11PM BY LATONYA AGUILAR MA, RAMESH ON/ADDEN DUM Aisha Jacobs null, [facility] 6 11:09:54 Adult health examinat ion Completed 201201/20/2014 IMPRESSI ON: PAP AND MAMMO WILL HAPPEN THIS NEXT MONTH, PT NEEDS OT EXECISE MORE SHE WILL SET UP COLONOSC OPY SINCE SHE IS DUE.; RECORDED 10/30/19 13 1:11PM BY LATONYA AGUILAR MA, ANNOTATI ON/ADDEN DUM Aisha matos [facility] 6 11:09:54 Hearing loss 20080418 Completed 201201/20/2014 IMPRESSI ON: PT WILL SET UP APPT; RECORDED 10/30/19 13 1:11PM BY LATONYA AGUILAR MA, ANNOTATI ON/ADDEN DUM Allyn matos, [facility] 7 14:03:27 Blood in urine [id number] Completed 201201/20/2014 IMPRESSI ON: FOLLOWED BY UROLOGY, WILL HAVE CYSTOSCO PY THIS WEEK; RECORDED 10/30/19 13 1:11PM BY LATONYA AGUILAR MA, ANNOTATI ON/ADD Aisha matos, [facility] 6 11:09:53 Disorder of upper respirat [...] LATONYA AGUILAR MA, ANNOTATI ON/ADD DUM Aisha matos, [facility] 6 11:09:54 Increase d frequenc y of urinatio n 224477502 Completed 201209/13/2015 IMPRESSI ON: NO CLEAR SIGNS OF INFX, MORE CONSISTE NT WITH URGE INCONTIN ENCE. DISCUSSE D MAEVEGELS FOR NOW. WILL CONTACT IF SEND OUT URINE ABNL.; RECORDED 10/30/19 13 1:10PM BY LATONYA AGUILAR MA, ANNOTATI ON/ADDEN DUM; RECORDED 09/09/19 14 1:16PM BY SHAWN COLMENARES, OFFICE VISIT Aisha matos [facility] 6 11:09:53 Patient status finding [id number] Completed 201202/09/2014 RECORDED 10/30/19 13 1:10PM BY LATONYA AGUILAR MA, ANNOTATI ON/ADDEN DUM Aisha matos [facility] 6 11:09:54 Screenin g for malignan t neoplasm of colon Completed 201202/09/2014 RECORDED 10/30/19 13 1:11PM BY LATONYA AGUILAR MA, ANNOTATI ON/ADDEN DUM Aisha matos [facility] 6 11:09:54 Hearing loss 76621443 Completed 201202/09/2014 IMPRESSI ON: PT WILL SET UP APPT; RECORDED 10/30/19 13 1:11PM BY LATONYA AGUILAR MA, ANNOTATI ON/ADDEN DUM Allyn matos, [facility] 7 14:03:27 Blood in urine 90504879 Completed 201202/09/2014 IMPRESSI ON: FOLLOWED BY UROLOGY, WILL HAVE CYSTOSCO PY THIS WEEK; RECORDED 10/30/19 13 1:11PM BY LATONYA AGUILAR MA, ANNOTATI ON/ADD Aisha matos [facility] 6 11:09:53 Disorder of upper respirat [...] AGUILAR MA, ANNOTATI ON/ADDEN DUM Aisha matos [facility] 6 11:09:54 Increase d frequenc y of urinatio n 969866136 Completed 201202/09/2014 IMPRESSI ON: NO CLEAR SIGNS OF INFX, MORE CONSISTE NT WITH URGE INCONTIN ENCE. DISCUSSE D KEGELS FOR NOW. WILL CONTACT IF SEND OUT URINE ABNL.; RECORDED 10/30/19 13 1:10PM BY LATONYA AGUILAR MA, RAMESH ON/ADDEN DUM Aisha matos [facility] 6 11:09:53 Influenz a vaccine needed [id number] 06 Completed 201201/20/2014 RECORDED 05/07/20 13 3:38PM BY SHAWN COLMENARES, OFFICE VISIT Aisha matos [facility] 6 11:09:54 Essentia l hyperten john 38767268 Completed 201201/20/2014 IMPRESSI ON: BP WELL CONTROLL ED CONTINUE MEDS; RECORDED 05/07/20 13 3:26PM BY RAMESH BURKETT ON/ADDEN DUM Allyn matos [facility] 7 14:03:35 Influenz a vaccine needed [id number] 06 Completed 201202/09/2014 RECORDED 05/07/20 13 3:38PM BY SHAWN COLMENARES, OFFICE VISIT Aisha matos [facility] 6 11:09:54 Calcium deposits in tendon 600711803 Completed 201209/13/2015 STORY: KNEE; IMPRESSI ON: DISCUSSE D X-RAY WITH PT. NO ARTHRITI S. BUT CALCIUM ON PATELLAR AND QUADRICE P TENDON. NOT CLEAR IF PATELLAR TENDINIT IS OR OTHER ISSUE. CONSULT WITH ORTHO. SHE WILL CALL TO MAKE APPT; RECORDED 06/11/20 13 2:10PM BY SHAWN COLMENARES, OFFICE VISIT Aisha matos [facility] 6 11:09:53 Chest pain 04210345 Completed 201209/13/2015 IMPRESSI ON: REPRODUC IBLE, FEELS [...] FURTHER WORKUP; RECORDED 06/11/20 13 3:12PM BY RITA Cobos MD, OFFICE VISIT Aisha matos [facility] 6 11:09:53 Measurem ent finding Completed 201202/20/2014 IMPRESSI ON: LEVEL A BIT UP AT 124, WILL HAVE PT REPEAT THE LEVEL IN A FEW WEEKS IF STILL ELEVATED WILL GET PT TO GI; RECORDED 06/11/20 13 2:10PM BY SHAWN COLMENARES, OFFICE VISIT Aisha matos [facility] 6 11:09:54 Malaise and fatigue 621554970 Completed 201209/13/2015 IMPRESSI ON: HX SOUNDS LIKE POSSIBLE SLEEP PANEA, PT HAS NEVER BEEN TESTED, SHE WILL ORGANIZE FIRST APPT; RECORDED 06/11/20 13 2:10PM BY SHAWN COLMENARES, OFFICE VISIT Aisha matos [facility] 6 11:09:53 Hearing loss 36977073 Active 2012 Not Available [facility] 0 11:17:28 Knee pain Completed 201209/13/2015 IMPRESSI ON: 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 TYLENOL NEEDED; RECORDED 06/11/20 13 2:10PM BY SHAWN COLMENARES, OFFICE VISIT Aisha matos [facility] 6 11:09:53 Sprains and strains of joints and adjacent muscles Completed 201209/13/2015 RECORDED 06/11/20 13 2:56PM BY RITA Cobos MD, OFFICE VISIT Aisha matos [facility] 6 11:09:54 Follow-u p encounte r Completed 201309/13/2015 RECORDED 08/27/19 14 9:29AM BY SHAWN COLMENARES, OFFICE VISIT Aisha matos [facility] 6 11:09:54 Hydronep hrosis 70448506 Completed 201309/13/2015 RECORDED 08/27/19 14 9:52AM BY RITA Cobos MD, OFFICE VISIT Aisha matos [facility] 6 11:09:53 Gastroes ophageal reflux disease 199239648 Completed 201309/13/2015 IMPRESSI ON: USES PRN PRILOSEC , WATCHING DIET; RECORDED 09/09/19 14 1:16PM BY SHAWN COLMENARES, OFFICE VISIT Aisha matos [facility] 6 11:09:53 Essentia l hyperten john 17762923 Active 2013 Not Available [facility] 0 11:17:28 Adult health examinat ion Completed 201309/13/2015 IMPRESSI ON: PAP, MAMMO AND COLONOSC OPY UTD, VITAMIN D, EXERCISE , INCREASE FIBER IN DIET TO HELPW ITH RECENT CONSTIPA TION, [facility] AT [facility]; RECORDED 09/09/19 14 2:02PM BY RITA Cobos MD, OFFICE VISIT Aisha matos [facility] 6 11:09:54 Pure hypercho lesterol emia 643880872 Completed 201301/20/2014 IMPRESSI ON: CHECK LEVEL; RECORDED 09/09/19 14 1:50PM BY RITA Cobos MD, ANNOTATI ON/ADDEN DUM Aisha matos, [facility] 6 11:09:53 Hypercal cemia 86525278 Completed 201309/13/2015 RECORDED 09/09/19 14 1:16PM BY SHAWN COLMENARES, OFFICE VISIT Aisha matos [facility] 6 11:09:53 Hypokale bhavna 02095591 Completed 201301/20/2014 RECORDED 09/09/19 14 1:50PM BY RITA Cobos MD, ANNOTATI ON/ADDEN DUM Aisha Jacobs null, [facility] 6 11:09:53 Kidney stone 97374573 Completed 201309/26/2018 Rita matos, [facility] 9 09:31:27 Laborato ry procedur e performe d 174613256 Completed 201301/20/2014 RECORDED 09/09/19 14 1:16PM BY SHAWN COLMENARES, ANNOTATI ON/ADDEN DUM Aisha Jacobs null, [facility] 6 11:09:54 Patient status finding 602244184 Completed 201309/13/2015 RECORDED 09/09/19 14 1:32PM BY SHAWN COLMENARES, OFFICE VISIT Aisha matos, [facility] 6 11:09:54 Carpal tunnel syndrome 11124906 Completed 201309/13/2015 RECORDED 09/09/19 14 1:16PM BY SHAWN COLMENARES, OFFICE VISIT Aisha matos, [facility] 6 11:09:53 Pure hypercho lesterol emia 344355456 Completed 201302/09/2014 IMPRESSI ON: CHECK LEVEL; RECORDED 09/09/19 14 1:50PM BY RITA Cobos MD, ANNOTATI ON/ADDEN DUM Aisha Jacobs null, [facility] 6 11:09:53 Hypokale bhavna 11117636 Completed 201302/09/2014 RECORDED 09/09/19 14 1:50PM BY RITA Cobos MD, ANNOTATI ON/ADDEN DUM Aisha Jacobs null, [facility] 6 11:09:53 Laborato ry procedur e performe d 516805011 Completed 201302/09/2014 RECORDED 09/09/19 14 1:16PM BY RAMESH BURKETT ON/ADDEN DUM Aisha Howardken matos, [facility] 6 11:09:54 Screenin g for malignan t neoplasm of cervix Completed 201311/22/2016 HUEY Burkett, [facility] 7 15:25:21 Dependen ce on continuo us positive airway pressure ventilat ion 608060871 Active 2017 CPAP 20 cm H2O Not Available [facility] 0 11:17:28 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 41422896 Completed 201702/04/2020 Rita matos, [facility] 0 11:32:27 Hyperpar athyroid ism 83456054 Active 2017 Not Available [facility] 0 11:17:28 History of calculus of kidney 062518563 Active 2018 Not Available [facility] 0 11:17:28 SARS-CoV -2 Completed 202107/20/2022 HUEY Rice, [facility] 3 09:53:04 Palpitat ions 69972766 Active 2022 ALEJANDRA MORALES MD [address], [place], [address] , [facility] 3 13:34:09 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 Procedures Surgical History Date Name Laterality Status Provider Name and Address Organization Details Recorded Time 09/09/19 25 Advanced Care Planning completed ALEJANDRA MORALES MD [address], [place], [address], [facility] 09/05/2024 12:27:29 07/23/19 25 Most Recent Mammogram completed Laureen Clinton [facility] 07/23/2024 11:43:38 08/15/19 24 Breast Biopsy completed Aisha Jacobs [facility] 09/07/2023 15:47:41 07/27/19 24 Breast Biopsy completed Dash Haddad MA [facility] 09/07/2023 10:21:07 07/19/19 24 Mammogram screening completed Jessie Dodge [facility] 09/07/2023 15:35:19 01/18/20 23 Date of Last Colonoscopy completed Shawn Colmenares MA [facility] 09/08/2024 10:43:41 01/18/20 23 Colonoscopy completed Laureen Clinton [facility] 09/13/2023 08:45:26 02/19/20 21 Advanced Care Planning completed Shawn Colmenares MA [facility] 02/18/2021 10:06:15 06/24/20 20 Mammogram one breast completed Griselda Chua [facility] 07/09/2020 14:20:31 05/13/20 20 Most Recent Bone Density completed Aisha Jacobs [facility] 05/18/2020 10:07:51 05/13/20 20 Dxa bone density lb vrt fx completed Aisha Jacobs [facility] 05/18/2020 10:07:34 02/04/20 20 Six-Item Cognitive Test completed Shawn Colmenares MA [facility] 02/04/2020 11:13:44 07/02/19 20 Date of Last Pap Smear completed Shawn Colmenares MA [facility] 02/18/2021 10:13:58 09/27/19 19 Mini-Cog Test completed Shawn Colmenares MA [facility] 09/26/2018 09:10:28 09/12/19 19 Explore parathyroid glands completed Rita valente [facility] 09/26/2018 09:30:22 07/02/18 83 Tubal Ligation completed Tatiana winslow [facility] [facility] 06/08/2022 10:16:21 07/02/18 83 Caesarean Section completed Tatiana winslow MA [facility] 06/08/2022 10:16:26 Anesth stone removal completed Shawn Colmenares MA [facility] 08/12/2020 09:42:03 Partial hysterectomy completed Tatiana winslow MA [facility] 06/08/2022 10:16:15 Imaging Results None recorded. Procedure Notes None recorded. Medical Equipment None Reported. Allergies Allergen ID Allergen Name Allergen Category Reaction Reaction Severity Criticality Documentation Date Start Date Code Code System Note Provider Name and Address Organization Details Recorded Time 29826 diclofena c Not available tachycard ia Not available Not available 06/08/2022 3355 RxNorm gel HUEY Edwards [facility] 2 10:12:00 12769 amlodipin e medicatio n Not available Not available low 12/25/2022 32094 RxNorm lower extre mity swell ing, not aller gy SE SAFIA Montes De Oca [facility] 4 13:44:41 84567 losartan medicatio n palpitati ons Not available Not available 02/01/2023 50957 RxNorm right arm numbn ess and fatig ue Tatiana Tho-M attos, [place] null, [facility] 3 10:33:52 21951 lisinopri l medicatio n palpitati ons Not available Not available 04/12/2023 23549 RxNorm HUEY Edwards, [facility] 3 10:33:07 Medications Name Sig Start [...] 05/16 completed RECORDED 05/16/20 10 4:57PM BY RAMESH GARCÍA ON/ELIZABETH HAYES; Not Available Not Available Not [...] 10/30 completed RECORDED 01/12/20 11 10:52AM BY DASH COTTON PA-C, MEDICATI ON AUTO-NUPUR CTIVATIO N;2PO [...] 08/30 completed RECORDED 09/02/19 14 3:12PM BY RITA Cobos MD, MEDICATI ON AUTO-NUPUR CTIVATIO N; [...] completed RECORDED 07/24/19 13 2:39PM BY ADDISON DIETRICH PA-C, MEDICATI ON AUTO-NUPUR CTIVATIO N; Not Available [...] 05/16 completed RECORDED 05/16/20 10 4:57PM BY RAMESH GARCÍA ON/ELIZABETH HAYES; Not Available Not Available Not Available [email or web address] [...] completed RECORDED 02/06/20 13 4:57PM BY STEVEN DONOHUE ANNOTANNIKA ON/ELIZABETH DUM; Not Available Not Available Not Available tizanidin [...] RECORDED 05/16/20 10 4:47PM BY NAPOLEON LOFTON I, MEDICATI ON AUTO-NUPUR CTIVATIO N; Not Available [...] Available Not Available Not Available Fluad Quad (65yr up)(PF) 60 mcg (15 mcg x [...] Details Last Updated DateTime 5 170.18 cm 26.3 kg/m2 52514.5 2 g 79 /min 96 % 99.7 [degF] 138/84 mm[Hg] Claudia Cifuentes MA [facility] 5 14:21:42 Social History Question Answer Notes LastModified by Organizat ion Details LastModified Time Tobacco Smoking Status Never Smoker Fabby maots [facility] 02/20/2014 11:27:08 Do You Have An Advance Directive? No [email or web address] Information not available 08/12/2020 Is Blood Transfusion Acceptable In An Emergency? Yes [email or web address] Information not available 09/13/2015 What Is Your Level Of Caffeine Consumption? None [email or web address] Information not available 09/09/2014 How Much Tobacco Do You Chew? None Information not available 05/28/2017 In The 14 Days Before Symptom Onset, Have You Had Close Contact With A Person Who Is Under Investigation For COVID-19 While That Person Was Ill? No [email or web address] Information not available 08/12/2020 Have You Been To An Area Known To Be High Risk For COVID-19? No [email or web address] Information not available 08/12/2020 What Type Of Diet Are You Following? SPECIFIC Gluten-free And No Dairy Information not available 06/08/2022 Which Illicit Or Recreational Drugs Have You Used? None Information not available 05/28/2017 Live Alone Or With Others? With Others [place] [email or web address] Information not available 09/07/2023 Do You Take Precautions To Prevent Distracted Driving? Yes [email or web address] Information not available 09/13/2015 How Often Do You Need To Have Someone Help You When You Read Instructions, Pamphlets, Or Other Written Material From Your Doctor Or Pharmacy? Sometimes [email or web address] Information not available 09/13/2015 Have You Served In The ? No [email or web address] Information not available 09/14/2016 Have You Or Anyone In Your Household Had Any Of The Following Symptoms In The Last 14 Days: Sore Throat, Cough, Chills, Body Aches For Unknown Reasons, Shortness Of Breath For Unknown Reasons, Loss Of Smell, Loss Of Taste, Fever At Or Greater Than 100 Degrees Fahrenheit? No [email or web address] Information not available 02/04/2020 Are You Or Anyone In Your Household A Health Care Provider Or Emergency Responder? No [email or web address] Information not available 02/04/2020 To The Best Of Your Knowledge Have You Been In Close Proximity To Any Individual Who Tested Positive For COVID-19? No [email or web address] Information not available 02/04/2020 *AWV ONLY* Are You Presently Prescribed Opioid Medication By PCP Or Specialist? If YES -Provider Assess The Benefit For Other, Non-opioid Pain Therapies Instead, Even If The Patient Does Not Have OUD But Is Possibly At Risk. No [email or web address] Information not available 02/18/2021 Have You Recently Traveled To A COVID-19 High Risk Area Or Gathering In The Last 10 Days? No [email or web address] Information not available 08/04/2020 What Was The Date Of Your Most Recent Tobacco Screening? 09/08/2024 [email or web address] Information not available 09/08/2024 How Many Children Do You Have? 2 Nu Information not available 06/08/2022 Do You Use Protection During Sex? No Information not available 05/28/2017 What Is Your Relationship Status? [email or web address] Information not available 09/08/2024 Seat Belts Used Routinely Yes [email or web address] Information not available 09/09/2014 Are You Sexually Active? No [email or web address] Information not available 09/07/2023 Smoke Alarm In Home Yes Information not available 05/28/2017 At What Age Did You Start Smoking Tobacco? 0 Information not available 05/28/2017 Are You Passively Exposed To Smoke? No Information not available 05/28/2017 How Much Tobacco Do You Smoke? No Information not available 05/28/2017 General Stress Level High [email or web address] Information not available 09/08/2024 Do You Use Sunscreen Routinely? No [email or web address] Information not available 09/09/2014 How Many Years [...] is your level of alcohol consumption? None [email or web address] Information not available 09/09/2014 Do you or have you ever used smokeless tobacco? Never used smokeless tobacco Information not available 02/04/2020 Are you currently employed? No retired Information not available 10/23/2018 Are you able to walk independently without assistance or assistive devices? YESWOREST [email or web address] Information not available 02/18/2021 Are you able to care for yourself independently? 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 Never used electronic cigarettes Information not available 08/12/2020 What is your exercise level? Occasional walking in warm weather Information not available 06/08/2022 Mental Status None recorded. Family History Relationship Description Onset Age of this Age Resolved Age Notes LastModified by Organization Details LastModified Time Mother Diabetes mellitus [email or web address] Not available 09/12 13:37:42 Sister Diabetes mellitus [email or web address] Not available 09/12 13:37:42 Sister Essential hypertension [email or web address] Not available 09:42:01 Sister Dementia [email or web address] Not availab le 02/18/2021 10:33:35 Brother Diabetes mellitus [email or web address] Not available 09/12 13:37:42 Brother Kidney disease [email or web address] Not available 09/12 13:37:42 Brother Disease of liver [email or web address] Not available 03/14 /2016 13:37:42 Notes:3 sisters with dementi a, unsure [...] high-dose, trivalent, PF 025 completed HUEY Santoyo [facility] 04/17/2025 13:48:15 Influenza, split virus, quadrivalent, preservative 019 [facility] 11:50:36 Influenza, adjuvanted, quadrivalent, PF 020 [facility] 10:10:29 COVID-19, mRNA, LNP-S, PF, 100 mcg/0.5mL dose or 50 mcg/0.25mL dose 021 completed HUEY Burkett [facility] 08/24/2021 09:19:52 COVID-19, mRNA, LNP-S, PF, 100 mcg/0.5mL dose or 50 mcg/0.25mL dose 021 completed HUEY Burkett [facility] 08/24/2021 09:19:52 Influenza, adjuvanted, quadrivalent, PF 021 completed HUEY Burkett [facility] 08/24/2021 09:19:52 COVID-19, mRNA, LNP-S, PF, 100 mcg/0.5mL dose or 50 mcg/0.25mL dose 021 completed HUEY Burkett [facility] 08/24/2021 09:19:52 Tdap 010 completed HUEY Burkett [facility] 08/24/2021 09:19:52 Influenza, split virus, trivalent, preservative 014 completed Shawn Colmenares, HUEY matos, [facility] 08/24/2021 09:19:52 Influenza, split virus, quadrivalent, PF 016 completed Tatiana Tho-Yousif os, HUEY matos, [facility] 06/08/2022 10:10:29 Pneumococcal conjugate PCV 13 018 completed Tatiana Tho-Yousif os, [place] null, [facility] 06/08/2022 10:10:29 Influenza, high-dose, trivalent, PF 018 completed Tatiana Tho-Yousif os, HUEY matos, [facility] 06/08/2022 10:10:30 Td (adult), 2 Lf tetanus toxoid, preservative free, adsorbed 019 completed Tatiana Tho-Yousif os, HUEY matos, [facility] 06/08/2022 10:10:30 pneumococcal polysaccharide PPV23 020 completed Tatiana Tho-Yousif os, HUEY matos, [facility] 06/08/2022 10:10:30 Influenza, high-dose, quadrivalent, PF 022 completed Tatiana Tho-Yousif os, HUEY matos, [facility] 06/08/2022 10:25:40 Influenza, split virus, quadrivalent, PF 017 cancelled patient objection Not Available [facility] 07/19/2019 02:22:08 Influenza, high-dose, quadrivalent, PF 023 completed ALEJANDRA MORALES MD [address] [facility] [address] [facility], [place], [phone], [facility] 03/14/2023 18:56:43 zoster recombinant 024 cancelled patient objection ALEJANDRA MORALES MD [address] [facility] [address] [facility], [place], [address], [facility] 09/07/2023 10:44:31 Influenza, high-dose, trivalent, PF 024 completed Shawn Colmenares [place] null, [facility] 03/10/2024 11:23:02 varicella 001 completed Iasha Jacobs null, [facility] 05/14/2020 11:50:36 MMR 001 completed Aisha Jacobs null, [facility] 05/14/2020 11:50:36 Td (adult), 2 Lf tetanus toxoid, preservative free, adsorbed 001 completed Aisha Jacobs null, [facility] 05/14/2020 11:50:36 Influenza, split virus, trivalent, preservative 007 completed Aisha Jacobs null, [facility] 05/14/2020 11:50:36 Influenza, split virus, trivalent, preservative 010 completed Aisha Jacobs null, [facility] 05/14/2020 11:50:36 Influenza, split virus, trivalent, preservative 010 completed Aisha Jacobs null, [facility] 05/14/2020 11:50:37 Influenza, split virus, trivalent, preservative 012 completed Aisha Jacobs null, [facility] 05/14/2020 11:50:37 Influenza, split virus, trivalent, preservative 012 completed Aisha Jacobs null, [facility] 05/14/2020 11:50:36 influenza, seasonal, intradermal, preservative free 013 completed Aisha Jacobs null, [facility] 05/14/2020 11:50:36 Past Encounters Encounter ID Performer Location Encounter Start Date Encounter Closed Date Diagnosis/Indication Diagnosis SNOMED-CT Code Diagnosis ICD10 Code Diagnosis IMO Codes Diagnosis Note [id number] ALEJANDRA MORALES MD Main Office [address] [facility] [place] [phone] 06/15/2025 14:11:54 06/15/2025 15:02:14 Pain of left shoulder region [id number] M25.512 [id number] - Presenting with acute left shoulder pain radiating to left arm, with limited active ROM. Occurring in the setting of history of chronic neck pain and right shoulder pain with prior work up by pain medicine specialist . No neurovascu lar deficits in history or on exam. Differenti als considered include cervical spondylosi s based on prior XRay, cervical radiculopa thy, rotator cuff pathology- Obtaining shoulder XR given abrupt onset and severely limited ROM to r/o dislocatio n or fracture, to evaluate for degenerati ve changes/os teoarthrit is- Advised to f/u with PMR about bilateral shoulder pain, limited ROM, neck pain. Advised to obtain MRI as per PMR's most recent plan of care in August of this year, order will need to come from PMR.- Patient deferring physical therapy at this time, endorses prior negative experience w/ PT- Patient deferring additional pain medication s at this time, does not want to take too many medication s Health Concerns Section Related Observation LastModified by Organization Detai ls LastModified Time None Recorded Concern Status LastModified by Organization Details LastModified Time None Recorded Payers Encounter Date Sequence Insurance Name Policy Number Policy Lezama Covered Member ID Lezama Member ID Guarantor Name 06/15/2025 1 [facility]: MEDICARE PPO BLUE (MEDICARE REPLACEMENT PPO) [id number] Demi Edwards [id number] Demi Edwards Notes Date Note Type Note Provider Name and Address Organization Details Recorded Time 5 text/html Musculoskeletal PainReported by PatientHPIFor severity, patient reportsinterference with sleepbut reportsimproving (today is her best day, able to move more than she was over the weekend)(was very severe over the weekend and limiting mobility.). For location, patient reportsleft shoulder(pain in neck. radiating from shoulder down to left arm, traces pain along anterior/medial aspect of arm.). For timing, patient reportssudden. For associated symptoms, patient reportsno fever,no weak limbs,no tingling, andno numbness of the legs/feet(has not been able to maneuver left arm since this pain started until today, due to pain not weakness.). For duration, (started on sunday night). For context, (no clear trauma/injury or inciting event, may be related to overuse? thinks she may have slept in a bad position, states her neck is never comfortable and has been having pain in her neck.has a history of right shoulder pain, limited rom. saw pmr in august of this year. cervical spine and r shoulder xrays were done. cervical spondylosis on xray. pmr had planned to do an mri for her but she did not have it done and would need a new order now from pmr.). For alleviating factors, (has taken tylenol once but does not want to take medications more than that.applies heat, capsaicin cream).ROS as noted in the HPI Demi is a 70 year old F presenting with left shoulder pain.PMH significant for acromioclavicular joint arthritis. ALEJANDRA MORALES MD [address] [facility] [address] [facility], [place], [address], [facility] 06/15/2025 16:25:33 OBGyn Episode No OBEpisode recorded.
--- OUTSIDE RECORDS SUMMARY | 2025-06-22 18:18 | XMS_ITS | Data Portability ---
Author Organization [facility], Main Office Address [address] [facility] [address] [place] [id number] Care Team Providers Care Utilization Engineer Name Role Phone KALA JACOBS Creative Perfumer JOSEPH RASHID Urologist [facility] Track Oiler ABIGAIL HAIDER Roof Bolter Helper TONNY NOVA Creative Perfumer COLLETTE BE Primary Care Provider RYLEE ROBERTS Drug Enforcement Agent [phone] Assessment Encounter Date Assessment Date Assessment LastModified by Organization Details LastModified Time 02/23/2025 02/23/2025 Discussed with patient the signs/symptom s warranted for a return to office visit and/or an ER visit. Patient understood and agreed with the plan. [email or web address] Not available 02/23/2025 11:25:51 Plan of Treatment Reminders Order Date Submit Date Provider Last Modified By Organization Details Last Modified Time Details Appointments [email or web address] 2025 10:15A M COLLETTE BE MD Not available Not available Not available Lab giardi a lambli a Ag, EIA, stool 2024 025 [facility], [address], [place], [address], 04/27/2025 20:05:52 gastro intest inal pathog ens panel, cultur e, stool 2024 025 [email or web address] [facility], [address], [place], [address], 04/24/2025 10:42:37 crypto sporid ium sp Ag, immuno assay, stool 2024 025 JESUS [facility] (Centralized Electronic Ordering - All Locations), Patient Can Go To The Location Of Their Choice, [id number] 04/27/2025 20:05:54 unlist ed lab - ova and parasi te exam, fecal 2024 025 JES[facility] (Centralized Electronic Ordering - All Locations), Patient Can Go To The Location Of Their Choice, [id number] 05/06/2025 12:06:03 unlist ed lab - ova and parasi te exam, fecal 2024 025 [place] [facility] (Centralized Electronic Ordering - All Locations), Patient Can Go To The Location Of Their Choice, [id number] 03/03/2025 17:56:50 Referral sleep medici ne referr farrukh barrazakathya townsend had on two occasi ons that she was sleep walkin g 2024 [facility], [address] [place], [address], 05/22/2025 10:31:37 Procedures None record ed. Surgeries None record ed. Imaging XR, should er, 2 or more view - Pt presen ting with acute severe left should er pain radiat ing to arm. Limite d ROM of should er. Obtain ing XR to r/o acute pathol ogy, evalua te for degene rative change s 2024 [facility], [address] [place], [address], 06/15/2025 15:46:03 Medication Orders triamc inolon e aceton sanjay 0.1 % topica l cream 2024 [place] [id number], [address] [place], [address], 01/29/2025 15:09:19 flutic asone propio dutch 50 mcg/ac tuatio n nasal spray, suspen albert 2024 025 [id number], [address] [place], [address], 01/08/2025 11:25:48 Patient TargetsNo targets recorded. Patient Instructions Encounter Date Encounter Id Patient Instructions Last Modified By Organization Details Last Modified Time 01/29/2025 [id number] Eczema: Care Instructions [email or web address] Not available 01/29/2025 15:09:18 04/17/2025 [id number] anal itching: care instructions [email or web address] Not available 04/17/2025 14:15:51 At [facility] follow up visit, all current and discharge medications (OTC, herbal therapies, supplements) reviewed and reconciled with patient and or caregiver, including potential side effects, drug interactions, instructions, and the consequences of not taking medication. Reviewed potential barriers to medication adherence, such as side effects from medication or cost of medication. [email or web address] Not available 04/17/2025 13:41:45 06/15/2025 [id number] Follow up if no improvement or if symptoms worsen. Reviewed signs and symptoms that should prompt seeking emergency medical care. Patient demonstrates understanding of plan of care. [email or web address] Not available 06/15/2025 16:02:44 Reason for Referral Sleep Medicine Referral for Obstructive sleep apnea syndrome patient had on two occasions that she was sleep walking Referring Physician: Collette Be, Family Medicine, Encounter Date: 04/17/2025 Results Created Date Observation Date Name Description Value Unit Range Abnormal Flag Note LastModifiedBy Organization Detail LastModifiedTime 02/25/2003/03/2025 OVA AND MOON ITE EXAM, FECAL interpretati on Negati ve negati ve Clini joshua Inter preta tion: INTER PRETI VE INFOR MATIO N: Ova and Moon ite, Fecal Metho d for ident ifica tion of Ova and Moon ites inclu vane wet mount and trich dawn stain s. Due to the vario us adolfo ing cycle s of many moon ites, three separ ate stool speci mens colle cted over a 5-7-d ay perio d are recom tatiana d for ova and moon ite exami natio n. A singl e negat hailee resul t does not rule out the possi bilit y of a moon itic infec tion. The ova and moon ite exam does not speci fical ly detec t Crypt ospor idium , Cyclo spora , Cysto isosp ora, and Micro spori uzma. For addit ional test infor matio n refer to [facility] consu lt, https :[email or web address] onten t/[email or web address] rrhea Not Available [facility] ([facility]) [address] [place], [address], 03/03/2025 17:56:50 04/25/2004/27/2025 GIARD IA LAMBL IA AG, EIA giardia lamblia Ag, EIA Negati ve negati ve Not Available [facility] ([facility]) [address] [place], [address], 04/27/2025 20:05:52 04/25/2004/27/2025 CRYPT OSPOR IDIUM EIA cryptosporid ium EIA Negati ve negati ve Not Available [facility] ([facility]) [address] [place], [address], 04/27/2025 20:05:54 04/25/2004/29/2025 STOOL CULTU RE salmonella/s higella screen Final report Not Available [facility] ([facility]) [address] [place], [address], 05/01/2025 08:07:24 04/25/2004/29/2025 STOOL CULTU RE result 1 COMMEN T No Salmo anil or Shige lla recov ered. Not Available [facility] ([facility]) [address] [place], [address], 05/01/2025 08:07:24 04/25/20 25 04/29/2025 STOOL CULTU RE E coli shiga toxin EIA Negati ve negati ve Not Available [facility] ([facility]) [address] [facility], [place], [address], 05/01/2025 08:07:24 04/25/2005/01/2025 STOOL CULTU RE campylobacte r culture Final report Not Available [facility] ([facility]) [address] [facility], [place], [address], 05/01/2025 08:07:24 04/25/2005/01/2025 STOOL CULTU RE result 1 COMMEN T No Campy lobac ter speci es isola nusrat. Not Available [facility] ([facility]) [address] [facility], [place], [address], 05/01/2025 08:07:24 04/25/20 25 05/06/2025 OVA AND MOON ITE EXAM, FECAL interpretati on Commen t Refer ence lab repor t sent via fax. Not Available [facility] ([facility]) [address] [place], [address], 05/06/2025 12:06:03 06/15/20 25 06/15/2025 XR, shoul amanda, 2 or more view No observ ation record ed. [facility] [address] [address], [place], [address], 06/17/2025 17:11:36 06/15/20 25 06/15/2025 XR, shoul [...] involv ing the left should er. WSN: [id number] Orderi ng Physic tatiana: Deyanira Jc Dictat ed By: Angel Grady MD, V Dictat ed Date/T paige: 3:40 pm Review ed By: Angel Grady MD, V Signed By: Angel Grady MD, V Signed Date/T paige: 3:40 pm Transc ribed By: JOVANNI Transc ribed Date/T paige: 3:40 pm Patien t Class: Outpat ient [facility] (Outpt Imaging) [address] [place], [address], 06/17/2025 17:11:36 Result Notes Documentation Provider Name [...] osseous abnormality involving the left shoulder. WSN: [id number] Ordering Physician: Deyanira Staton Dictated By: Angel Albarado MD, V Dictated Date/Time: 06/15/25 3:40 pm Reviewed By: Angel Albarado MD, V Signed By: Angel Albarado MD, V Signed Date/Time: 06/15/25 3:40 pm Transcribed By: JOVANNI Transcribed Date/Time: 06/15/25 3:40 pm Patient Class: Outpatient DEYANIRA STATON, [facility]- [address], [address], [facility] 06/17/2025 09:19:52 Problems Name Problem SNOMED Code Status Onset Date Resolution Date Notes Provider Name and Address Organization Details Recorded Time Lighthea dedness [id number] Completed 09/26/2018 Lainey matos [facility] 9 09:31:22 Cervical radiculo charlene [id number] Completed 09/13/2015 Aisha matos [facility] 6 11:09:53 Atypical chest pain 752609919 Completed 09/13/2015 Aisha Reynaldo matos, [facility] 6 11:09:53 Hypercho lesterol emia 40626714 Completed 09/13/2015 Aisha Jacobs null, [facility] 6 11:09:53 Muscle pain 94957129 Completed 09/13/2015 Aishaemser Jacobs null, [facility] 6 11:09:53 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 ; RECORDED 08/20/19 09 2:56PM BY RAMESH DIAZ ON/ADDEN DUM Aisha Jacobs null, [facility] 6 11:09:54 Generali zed abdomina l pain 570554336 Completed 200802/09/2014 IMPRESSI ON: MORE FOOD INTOLERA NCE, PT TO LIMIT CHOICES THAT UPSET HER STOMACH. ; RECORDED 08/20/19 09 2:56PM BY RAMESH DIAZ ON/ADDEN DUM Aisha matos, [facility] 6 11:09:54 General examinat ion of patient Completed 200801/20/2014 IMPRESSI ON: PAP, MAMMO AND COLONOSC OPY UP TO DATE, NEED TO INCREASE EXERCISE . TD UTD, WILL KEEP LOOKING FOR WORK. START MORE EXERCISE AND STRETCHI NG; RECORDED 04/13/20 09 10:37AM BY RAMESH BURKETT ON/ADDEN DUM Aisha matos, [facility] 6 11:09:54 General examinat ion of patient Completed 200802/09/2014 IMPRESSI ON: PAP, MAMMO AND COLONOSC OPY UP TO DATE, NEED TO INCREASE EXERCISE . TD UTD, WILL KEEP LOOKING FOR WORK. START MORE EXERCISE AND STRETCHI NG; RECORDED 04/13/20 09 10:37AM BY ALTAGRACIA BURKETTATI ON/ADDEN DUM Aisha Jacobs null, [facility] 6 11:09:54 Nonspeci fic tubercul in test reaction [id number] Completed 201101/20/2014 IMPRESSI ON: CONFIRME D WITH TB CLINIC OK TO GET XRAY ONLY.; RECORDED 06/03/20 12 11:31AM BY KARRIE ESCOTO MA, ANNOTATI ON/ADDEN DUM Aisha Jacobs null, [facility] 6 11:09:54 Acute pain 763384000 Completed 201101/20/2014 RECORDED 06/03/20 12 11:32AM BY KARRIE ESCOTO MA, ANNOTATI ON/ADDEN DUM Aisha Jacobs null, [facility] 6 11:09:53 Acute sinusiti s 75849742 Completed 201101/20/2014 RECORDED 06/03/20 12 11:31AM BY KARRIE ESCOTO MA, ALTAGRACIAATI ON/ADDEN DUM Aisha Jacobs null, [facility] 6 11:09:53 Synovial cyst of poplitea l space Completed 201101/20/2014 RECORDED 06/03/20 12 11:31AM BY KARRIE ESCOTO MA, ANNOTATI ON/ADDEN DUM Aisha Jacobs null, [facility] 6 11:09:53 Screenin g for malignan t neoplasm of breast Completed 201101/20/2014 RECORDED 06/03/20 12 11:32AM BY KARRIE ESCOTO MA, ANNOTATI ON/ADDEN DUM Aisha Jacobs null, [facility] 6 11:09:54 Kidney stone 71330420 Completed 201101/20/2014 RECORDED 06/03/20 12 11:31AM BY KARRIE ESCOTO MA, ANNOTATI ON/ADDEN DUM Lainey Corbin watkins null, [facility] 9 09:31:27 Impacted jazmin 88329323 Completed 201101/20/2014 RECORDED 06/03/20 12 11:31AM BY KARRIE ESCOTO MA, ANNOTATI ON/ADDEN DUM Aisha matos, [facility] 6 11:09:53 Screenin g for malignan t neoplasm of cervix Completed 201101/20/2014 RECORDED 06/03/20 12 11:32AM BY KARRIE ESCOTO MA, ANNOTATI ON/ADDEN DUM HUEY Burkett, [facility] 7 15:25:21 Edema [id number] Completed 201101/20/2014 IMPRESSI ON: NO SIGNS OF CHF, DISC. SALT RESTRICT ION, RECOMMEN D COMPRESS ION HOSE(HAS ); RECORDED 06/03/20 12 11:31AM BY KARRIE ESCOTO MA, ANNOTATI ON/ADDEN DUM Aisha matos, [facility] 6 11:09:53 Headache 37323114 Completed 201101/20/2014 RECORDED 06/03/20 12 11:31AM BY KARRIE ESCOTO MA, ANNOTATI ON/ADDEN DUM [facility] 6 11:09:53 Pain of hip region 51822889 Completed 201101/20/2014 IMPRESSI ON: X 2 MONTHS, [...] ESCOTO MA, ANNOTATI ON/ADDEN DUM Aisha matos, [facility] 6 11:09:53 Lateral epicondy litis 482882570 Completed 201101/20/2014 RECORDED 06/03/20 12 11:32AM BY KARRIE ESCOTO MA, ANNOTATI ON/ADDEN DUM Aisha Jacobs null, [facility] 6 11:09:53 Polyuria 07007192 Completed 201101/20/2014 RECORDED 06/03/20 12 11:32AM BY KARRIE ESCOTO MA, ANNOTATI ON/ADDEN DUM Aisha Jacobs null, [facility] 6 11:09:53 Sciatica 38574523 Completed 201101/20/2014 RECORDED 06/03/20 12 11:32AM BY KARRIE ESCOTO MA, ANNOTATI ON/ADDEN DUM Aisha Jacobs null, [facility] 6 11:09:53 Chronic sinusiti s 48081434 Completed 201101/20/2014 RECORDED 06/03/20 12 11:31AM BY KARRIE ESCOTO MA, RAMESH ON/ADDEN DUM Aisha Jacobs null, [facility] 6 11:09:53 Feces contents abnormal 571484616 Completed 201101/20/2014 RECORDED 06/03/20 12 11:31AM BY KARRIE ESCOTO MA, RAMESH ON/ADDEN DUM Aisha Jacobs null, [facility] 6 11:09:54 Psychoge hamlet headache 98237049 Completed 201101/20/2014 IMPRESSI ON: TALKED ABOUT EXERCISE , STRETCHI NG; RECORDED 06/03/20 12 11:31AM BY KARRIE ESCOTO MA, RAMESH ON/ADDEN DUM Aisha Jacobs null, [facility] 6 11:09:53 Chronic disease of tonsils AND/OR adenoids 35413618 Completed 201101/20/2014 RECORDED 06/03/20 12 11:31AM BY KARRIE ESCOTO MA, RAMESH ON/ADDEN DUM Aisha Jacobs null, [facility] 6 11:09:53 Nonspeci fic tubercul in test reaction [id number] Completed 201102/09/2014 IMPRESSI ON: CONFIRME D WITH TB CLINIC OK TO GET XRAY ONLY.; RECORDED 06/03/20 12 11:31AM BY KARRIE ESCOTO MA, ANNOTATI ON/ADDEN DUM Aisha Jacobs null, [facility] 6 11:09:54 Acute pain 556567410 Completed 201102/09/2014 RECORDED 06/03/20 12 11:32AM BY KARRIE ESCOTO MA, ANNOTATI ON/ADDEN DUM Aisha Jacobs null, [facility] 6 11:09:53 Acute sinusiti s 80751606 Completed 201102/09/2014 RECORDED 06/03/20 12 11:31AM BY KARRIE ESCOTO MA, ANNOTATI ON/ADDEN DUM Aisha Jacobs null, [facility] 6 11:09:53 Synovial cyst of poplitea l space Completed 201102/09/2014 RECORDED 06/03/20 12 11:31AM BY KARRIE ESCOTO MA, ANNOTATI ON/ADDEN DUM Aisha Jacobs null, [facility] 6 11:09:53 Screenin g for malignan t neoplasm of breast Completed 201102/09/2014 RECORDED 06/03/20 12 11:32AM BY KARRIE ESCOTO MA, ANNOTATI ON/ADDEN DUM Aisha Jacobs null, [facility] 6 11:09:54 Kidney stone 83837187 Completed 201102/09/2014 RECORDED 06/03/20 12 11:31AM BY KARRIE ESCOTO MA, ANNOTATI ON/ADDEN DUM Lainey Glading-Di june null, [facility] 9 09:31:27 Impacted cerumen 78982869 Completed 201102/09/2014 RECORDED 06/03/20 12 11:31AM BY KARRIE ESCOTO MA, ANNOTATI ON/ADDEN DUM Aisha Jacobs null, [facility] 6 11:09:53 Screenin g for malignan t neoplasm of cervix Completed 201102/09/2014 RECORDED 06/03/20 12 11:32AM BY KARRIE ESCOTO MA, ANNOTATI ON/ADDEN DUM Lluvia Colmenares MA null, [facility] 7 15:25:21 Edema 142613760 Completed 201102/09/2014 IMPRESSI ON: NO SIGNS OF CHF, DISC. SALT RESTRICT ION, RECOMMEN D COMPRESS ION HOSE(HAS ); RECORDED 06/03/20 12 11:31AM BY KARRIE ESCOTO MA, RAMESH ON/ADDEN DUM Aisha matos, [facility] 6 11:09:53 Headache 20065677 Completed 201102/09/2014 IMPRESSI ON: TENSION PT TO WORK ON WALKING OTHER EXERCISE ; RECORDED 06/03/20 12 11:31AM BY KARRIE ESCOTO MA, ANNOTATI ON/ADDEN DUM Aisha matos, [facility] 6 11:09:53 Pain of hip region 38552906 Completed 201102/09/2014 IMPRESSI ON: X 2 MONTHS, [...] ESCOTO MA, ANNOTATI ON/ADDEN DUM Aisha matos, [facility] 6 11:09:53 Lateral epicondy litis 161410168 Completed 201102/09/2014 RECORDED 06/03/20 12 11:32AM BY KARRIE ESCOTO MA, ANNOTATI ON/ADDEN DUM Aisha matos, [facility] 6 11:09:53 Polyuria 11600226 Completed 201102/09/2014 RECORDED 06/03/20 12 11:32AM BY KARRIE ESCOTO MA, RAMESH ON/ADDEN DUM Aisha Jacobs null, [facility] 6 11:09:54 Sciatica 92265407 Completed 201102/09/2014 RECORDED 06/03/20 12 11:32AM BY KARRIE ESCOTO MA, RAMESH ON/ADDEN DUM Aisha Jacobs null, [facility] 6 11:09:53 Chronic sinusiti s 20907895 Completed 201102/09/2014 RECORDED 06/03/20 12 11:31AM BY KARRIE ESCOTO MA, RAMESH ON/ADDEN DUM Aisha Jacobs null, [facility] 6 11:09:53 Feces contents abnormal 501481238 Completed 201102/09/2014 RECORDED 06/03/20 12 11:31AM BY KARRIE ESCOTO MA, RAMESH ON/ADDEN DUM Aisha Jacobs null, [facility] 6 11:09:54 Psychoge hamlet headache 20583392 Completed 201102/09/2014 IMPRESSI ON: TALKED ABOUT EXERCISE , AMANDA KEN; RECORDED 06/03/20 12 11:31AM BY KARRIE ESCOTO MA, RAMESH ON/ADDEN DUM Aisha Jacobs null, [facility] 6 11:09:53 Chronic disease of tonsils AND/OR adenoids 36527878 Completed 201102/09/2014 RECORDED 06/03/20 12 11:31AM BY KARRIE ESCOTO MA, RAMESH ON/ADDEN DUM Aisha Jacobs null, [facility] 6 11:09:53 Acute pharyngi tis 927551208 Completed 201201/20/2014 RECORDED 08/05/19 13 3:29PM BY RAMESH BURKETT ON/ADDEN DUM Aisha Jacobs null, [facility] 6 11:09:53 Acute pharyngi tis 201148048 Completed 201202/09/2014 RECORDED 08/05/19 13 3:29PM BY RAMESH BURKETT ON/ADDEN DUM Aisha matos, [facility] 6 11:09:53 Patient status finding [id number] Completed 201201/20/2014 RECORDED 10/30/19 13 1:10PM BY LATONYA AGUILAR MA, ANNOTATI ON/ADDEN DUM Aisha matos, [facility] 6 11:09:54 Screenin g for malignan t neoplasm of colon Completed 201201/20/2014 RECORDED 10/30/19 13 1:11PM BY LATONYA AGUILAR MA, ANNOTATI ON/ADDEN DUM Aisha matos, [facility] 6 11:09:54 Adult health examinat ion Completed 201201/20/2014 IMPRESSI ON: PAP AND MAMMO WILL HAPPEN THIS NEXT MONTH, PT NEEDS OT EXECISE MORE SHE WILL SET UP COLONOSC OPY SINCE SHE IS DUE.; RECORDED 10/30/19 13 1:11PM BY LATONYA AGUILAR MA, ANNOTATI ON/ADDEN DUM Aisha matos, [facility] 6 11:09:54 Hearing loss 68062464 Completed 201201/20/2014 IMPRESSI ON: PT WILL SET UP APPT; RECORDED 10/30/19 13 1:11PM BY LATONYA AGUILAR MA, ANNOTATI ON/ADDEN DUM Allyn matos, [facility] 7 14:03:27 Blood in urine 79791107 Completed 201201/20/2014 IMPRESSI ON: FOLLOWED BY UROLOGY, WILL HAVE CYSTOSCO PY THIS WEEK; RECORDED 10/30/19 13 1:11PM BY LATONYA AGUILAR MA, ANNOTATI ON/ADDEN DUM Aisha matos, [facility] 6 11:09:53 Disorder of upper respirat ory [...] AGUILAR MA, ALTAGRACIAATI ON/ADDEN DUM Aisha matos [facility] 6 11:09:54 Increase d frequenc y of urinatio n 838597389 Completed 201209/13/2015 IMPRESSI ON: NO CLEAR SIGNS OF INFX, MORE CONSISTE NT WITH URGE INCONTIN ENCE. DISCUSSE Ivone MCFARLANEGELDarius FOR NOW. WILL CONTACT IF SEND OUT URINE ABNL.; RECORDED 10/30/19 13 1:10PM BY LATONYA AGUILAR MA, ALTAGRACIAATI ON/ADD DUM; RECORDED 09/09/19 14 1:16PM BY LLUVIA COLMENARES, OFFICE VISIT Aisha matos [facility] 6 11:09:53 Patient status finding [id number] Completed 201202/09/2014 RECORDED 10/30/19 13 1:10PM BY LATONYA AGUILAR MA, ANNOTATI ON/ADDEN DUM Aisha matos [facility] 6 11:09:54 Screenin g for malignan t neoplasm of colon Completed 201202/09/2014 RECORDED 10/30/19 13 1:11PM BY LATONYA AGUILAR MA, ANNOTATI ON/ADDEN DUM Aisha matos [facility] 6 11:09:54 Hearing loss 28356076 Completed 201202/09/2014 IMPRESSI ON: PT WILL SET UP APPT; RECORDED 10/30/19 13 1:11PM BY LATONYA AGUILAR MA, ALTAGRACIAATI ON/ADDEN DUM Allyn matos [facility] 7 14:03:27 Blood in urine 86943937 Completed 201202/09/2014 IMPRESSI ON: FOLLOWED BY UROLOGY, WILL HAVE CYSTOSCO PY THIS WEEK; RECORDED 10/30/19 13 1:11PM BY LATONYA AGUILAR MA, ANNOTATI ON/ADDEN DUM Aisha matos [facility] 6 11:09:53 Disorder of upper respirat ory [...] G/PRN.; RECORDED 10/30/19 13 1:10PM BY LATONYA AGIULAR MA, ANNOTATI ON/ADDEN DUM Aisha matos [facility] 6 11:09:54 Increase d frequenc y of urinatio n 629864915 Completed 201202/09/2014 IMPRESSI ON: NO CLEAR SIGNS OF INFX, MORE CONSISTE NT WITH URGE INCONTIN ENCE. DISCUSSE D ODALYS FOR NOW. WILL CONTACT IF SEND OUT URINE ABNL.; RECORDED 10/30/19 13 1:10PM BY LATONYA AGUILAR MA, ANNOTATI ON/ADD DUM Aisha matos [facility] 6 11:09:53 Influenz a vaccine needed [id number] 06 Completed 201201/20/2014 RECORDED 05/07/20 13 3:38PM BY LLUVIA COLMENARES, OFFICE VISIT Aisha matos [facility] 6 11:09:54 Essentia l hyperten albert 07063279 Completed 201201/20/2014 IMPRESSI ON: BP WELL CONTROLL ED CONTINUE MEDS; RECORDED 05/07/20 13 3:26PM BY RAMESH BURKETT ON/ADD DUM Allyn matos [facility] 7 14:03:35 Influenz a vaccine needed [id number] 06 Completed 201202/09/2014 RECORDED 05/07/20 3:38PM BY LLUVIA COLMENARES, OFFICE VISIT Aisha matos [facility] 6 11:09:54 Calcium deposits in tendon 658897506 Completed 201209/13/2015 STORY: KNEE; IMPRESSI ON: DISCUSSE D X-RAY WITH PT. NO ARTHRITI S. BUT CALCIUM ON PATELLAR AND QUADRICE P TENDON. NOT CLEAR IF PATELLAR TENDINIT IS OR OTHER ISSUE. CONSULT WITH ORTHO. SHE WILL CALL TO MAKE APPT; RECORDED 06/11/20 13 2:10PM BY LLUVIA COLMENARES, OFFICE VISIT Aisha matos [facility] 6 11:09:53 Chest pain 73409695 Completed 201209/13/2015 IMPRESSI ON: REPRODUC IBLE, FEELS [...] LAINEY Cobos MD, OFFICE VISIT Aisha matos [facility] 6 11:09:53 Measurem ent finding Completed 201202/20/2014 IMPRESSI ON: LEVEL A BIT UP AT 124, WILL HAVE PT REPEAT THE LEVEL IN A FEW WEEKS IF STILL ELEVATED WILL GET PT TO GI; RECORDED 06/11/20 13 2:10PM BY LLUVIA COLMENARES, OFFICE VISIT Aisha matos [facility] 6 11:09:54 Malaise and fatigue 496996871 Completed 201209/13/2015 IMPRESSI ON: HX SOUNDS LIKE POSSIBLE SLEEP PANEA, PT HAS NEVER BEEN TESTED, SHE WILL ORGANIZE FIRST APPT; RECORDED 06/11/20 13 2:10PM BY LLUVIA COLMENARES, OFFICE VISIT Aisha matos [facility] 6 11:09:53 Hearing loss 07938633 Active 2012 Not Available [facility] 0 11:17:28 Knee pain Completed 201209/13/2015 IMPRESSI ON: 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 TYLENOL NEEDED; RECORDED 06/11/20 13 2:10PM BY LLUVIA COLMENARES, OFFICE VISIT Aisha matos [facility] 6 11:09:53 Sprains and strains of joints and adjacent muscles Completed 201209/13/2015 RECORDED 06/11/20 13 2:56PM BY LAINEY Cobos MD, OFFICE VISIT Aisha matos [facility] 6 11:09:54 Follow-u p encounte r Completed 201309/13/2015 RECORDED 08/27/19 14 9:29AM BY LLUVIA COLMENARES, OFFICE VISIT Aisha matos, [facility] 6 11:09:54 Hydronep hrosis [id number] Completed 201309/13/2015 RECORDED 08/27/19 14 9:52AM BY LAINEY Cobos MD, OFFICE VISIT Aisha matos [facility] 6 11:09:53 Gastroes ophageal reflux disease [id number] Completed 201309/13/2015 IMPRESSI ON: USES PRN PRILOSEC , WATCHING DIET; RECORDED 09/09/19 14 1:16PM BY LLUVIA COLMENARES, OFFICE VISIT Aisha matos [facility] 6 11:09:53 [facility] hyperten albert [id number] Active 2013 Not Available [facility] 0 11:17:28 Adult health examinat ion Completed 201309/13/2015 IMPRESSI ON: PAP, MAMMO AND COLONOSC OPY UTD, VITAMIN D, EXERCISE , INCREASE FIBER IN DIET TO HELPW ITH RECENT CONSTIPA TION, OCNISDER ZOSTAVAX AT [facility]; RECORDED 09/09/19 14 2:02PM BY LAINEY Cobos MD, OFFICE VISIT Aisha matos, [facility] 6 11:09:54 Pure hypercho lesterol emia [id number] Completed 201301/20/2014 IMPRESSI ON: CHECK LEVEL; RECORDED 09/09/19 14 1:50PM BY LAINEY Cobos MD, ANNOTATI ON/ADDEN DUM Aisha Jacobs null, [facility] 6 11:09:53 Hypercal cemia 43407218 Completed 201309/13/2015 RECORDED 09/09/19 14 1:16PM BY LLUVIA COLMENARES, OFFICE VISIT Aisha matos, [facility] 6 11:09:53 Hypokale bhavna [id number] Completed 201301/20/2014 RECORDED 09/09/19 14 1:50PM BY LAINEY Cobos MD, ANNOTATI ON/ADDEN DUM Aisha Jacobs null, [facility] 6 11:09:53 Kidney stone 70271040 Completed 201309/26/2018 Lainey matos, [facility] 9 09:31:27 Laborato ry procedur e performe d [id number] Completed 201301/20/2014 RECORDED 09/09/19 14 1:16PM BY LLUVIA COLMENARES, RAMESH ON/ADDEN DUM Aisha Jacobs null, [facility] 6 11:09:54 Patient status finding [id number] Completed 201309/13/2015 RECORDED 09/09/19 14 1:32PM BY LLUVIA COLMENARES, OFFICE VISIT Aisha matos, [facility] 6 11:09:54 Carpal tunnel syndrome 77410757 Completed 201309/13/2015 RECORDED 09/09/19 14 1:16PM BY LLUVIA COLMENARES, OFFICE VISIT Aisha matos, [facility] 6 11:09:53 Pure hypercho lesterol emia [id number] Completed 201302/09/2014 IMPRESSI ON: CHECK LEVEL; RECORDED 09/09/19 14 1:50PM BY LAINEY Cobos MD, ANNOTATI ON/ADDEN DUM Aisha matos, [facility] 6 11:09:53 Hypokale bhavna [id number] Completed 201302/09/2014 RECORDED 09/09/19 14 1:50PM BY LAINEY Cobos MD, ANNOTATI ON/ADDEN DUM Aisha matos, [facility] 6 11:09:53 Laborato ry procedur e performe d [id number] Completed 201302/09/2014 RECORDED 09/09/19 14 1:16PM BY LLUVIA COLMENARES, RAMESH ON/ADDEN DUM Aisha matos, [facility] 6 11:09:54 Screenin g for malignan t neoplasm of cervix Completed 201311/22/2016 HUEY Burkett, [facility] 7 15:25:21 Dependen ce on continuo us positive airway pressure ventilat ion 446051358 Active 2017 CPAP 20 cm H2O Not Available [facility] 0 11:17:28 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 11593316 Completed 201702/04/2020 Lainey matos, [facility] 0 11:32:27 Hyperpar athyroid ism 88416282 Active 2017 Not Available [facility] 0 11:17:28 History of calculus of kidney 196287484 Active 2018 Not Available [facility] 0 11:17:28 SARS-CoV -2 Completed 202107/20/2022 HUEY Rice, [facility] 3 09:53:04 Palpitat ions 96143021 Active 2022 COLLETTE BE MD [address], [place], [address] , [facility] 3 13:34:09 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 Procedures Surgical History Date Name Laterality Status Provider Name and Address Organization Details Recorded Time 09/09/19 25 Advanced Care Planning completed COLLETTE BE MD [address], [place], [address], [facility] 09/05/2024 12:27:29 07/23/19 25 Most Recent Mammogram completed Laureen Clinton [facility] 07/23/2024 11:43:38 08/15/19 24 Breast Biopsy completed Aisha Jacobs [facility] 09/07/2023 15:47:41 07/27/19 24 Breast Biopsy completed Anette Haddad MA [facility] 09/07/2023 10:21:07 07/19/19 24 Mammogram screening completed Jessie Dodge [facility] 09/07/2023 15:35:19 01/18/20 23 Date of Last Colonoscopy completed Lluvia Colmenares MA [facility] 09/08/2024 10:43:41 01/18/20 23 Colonoscopy completed Laureen Clinton [facility] 09/13/2023 08:45:26 02/19/20 21 Advanced Care Planning completed Lluvia Colmenares MA [facility] 02/18/2021 10:06:15 06/24/20 20 Mammogram one breast completed Griselda Chua [facility] 07/09/2020 14:20:31 05/13/20 20 Most Recent Bone Density completed Aisha Jacobs [facility] 05/18/2020 10:07:51 05/13/20 20 Dxa bone density lb vrt fx completed Aisha Jacobs [facility] 05/18/2020 10:07:34 02/04/20 20 Six-Item Cognitive Test completed Lluvia Colmenares MA [facility] 02/04/2020 11:13:44 07/02/19 20 Date of Last Pap Smear completed Lluvia Colmenares MA [facility] 02/18/2021 10:13:58 09/27/19 19 Mini-Cog Test completed Lluvia Colmenares MA [facility] 09/26/2018 09:10:28 09/12/19 19 Explore parathyroid glands completed Lainey valente [facility] 09/26/2018 09:30:22 07/02/18 83 Tubal Ligation completed Tatiana winslow MA [facility] 06/08/2022 10:16:21 07/02/18 83 Caesarean Section completed Tatiana winslow MA [facility] 06/08/2022 10:16:26 Anesth stone removal completed Lluvia Colmenares MA [facility] 08/12/2020 09:42:03 Partial hysterectomy completed Tatiana winslow MA [facility] 06/08/2022 10:16:15 Imaging Results None recorded. Procedure Notes None recorded. Medical Equipment None Reported. Allergies Allergen ID Allergen Name Allergen Category Reaction Reaction Severity Criticality Documentation Date Start Date Code Code System Note Provider Name and Address Organization Details Recorded Time 17872 diclofena c Not available tachycard ia Not available Not available 06/08/2022 3355 RxNorm gel HUEY Edwards [facility] 2 10:12:00 56519 amlodipin e medicatio n Not available Not available low 12/25/2022 99296 RxNorm lower extre mity swell ing, not aller gy SE SAFIA Montes De Oca [facility] 4 13:44:41 30522 losartan medicatio n palpitati ons Not available Not available 02/01/2023 88935 RxNorm right arm numbn ess and fatig ue HUEY Edwards [facility] 3 10:33:52 17093 lisinopri l medicatio n palpitati ons Not available Not available 04/12/2023 50376 RxNorm HUEY Edwards [facility] 3 10:33:07 Medications Name Sig Start Date [...] 10:52AM BY ANETTE COTTON PA-C, MEDICATI ON AUTO-NUPRU CTIVATIO N;2PO QD FOR 1 DAY, THEN [...] Updated DateTime 5 170.18 cm 26.5 kg/m2 25257.1 1 g 75 /min 97 % 98 [degF] 121/75 mm[Hg] Claudia Cifuentes MA [facility] 5 10:58:59 Date Recorded Body height Body mass index (BMI) Body weight Heart rate Oxygen saturation Body temperature Systolic And Diastolic Provider Name and Address Organization Details Last Updated DateTime 5 170.18 cm 26.3 kg/m2 71207.5 2 g 70 /min 99 % 97.9 [degF] 131/78 mm[Hg] Claudia Cifuentes MA [facility] 5 14:55:52 Date Recorded Body height Body mass index (BMI) Body weight Heart rate Oxygen saturation Body temperature Systolic And Diastolic Provider Name and Address Organization Details Last Updated DateTime 5 170.18 cm 26.8 kg/m2 35228.3 g 64 /min 97 % 97.2 [degF] 119/75 mm[Hg] Olegario vieyra [facility] 5 11:16:32 Date Recorded Body height Body mass index (BMI) Body weight Heart rate Oxygen saturation Body temperature Systolic And Diastolic Provider Name and Address Organization Details Last Updated DateTime 5 170.18 cm 26.5 kg/m2 83922.1 1 g 62 /min 99 % 98.1 [degF] 119/74 mm[Hg] Claudia Cifuentes MA [facility] 5 13:45:27 Date Recorded Body height Body mass index (BMI) Body weight Heart rate Oxygen saturation Body temperature Systolic And Diastolic Provider Name and Address Organization Details Last Updated DateTime 5 170.18 cm 26.3 kg/m2 60270.5 2 g 79 /min 96 % 99.7 [degF] 138/84 mm[Hg] Claudia Cifuentes [facility] 5 14:21:42 Social History Question Answer Notes LastModified by Organizat ion Details LastModified Time Tobacco Smoking Status Never Smoker Karrie matos [facility] 02/20/2014 11:27:08 Do You Have An Advance Directive? No [email or web address] Information not available 08/12/2020 Is Blood Transfusion Acceptable In An Emergency? Yes [email or web address] Information not available 09/13/2015 What Is Your Level Of Caffeine Consumption? None [email or web address] Information not available 09/09/2014 How Much Tobacco Do You Chew? None Information not available 05/28/2017 In The 14 Days Before Symptom Onset, Have You Had Close Contact With A Person Who Is Under Investigation For COVID-19 While That Person Was Ill? No [email or web address] Information not available 08/12/2020 Have You Been To An Area Known To Be High Risk For COVID-19? No [email or web address] Information not available 08/12/2020 What Type Of Diet Are You Following? SPECIFIC Gluten-free And No Dairy Information not available 06/08/2022 Which Illicit Or Recreational Drugs Have You Used? None Information not available 05/28/2017 Live Alone Or With Others? With Others Son [email or web address] Information not available 09/07/2023 Do You Take Precautions To Prevent Distracted Driving? Yes [email or web address] Information not available 09/13/2015 How Often Do You Need To Have Someone Help You When You Read Instructions, Pamphlets, Or Other Written Material From Your Doctor Or Pharmacy? Sometimes [email or web address] Information not available 09/13/2015 Have You Served In The ? No [email or web address] Information not available 09/14/2016 Have You Or Anyone In Your Household Had Any Of The Following Symptoms In The Last 14 Days: Sore Throat, Cough, Chills, Body Aches For Unknown Reasons, Shortness Of Breath For Unknown Reasons, Loss Of Smell, Loss Of Taste, Fever At Or Greater Than 100 Degrees Fahrenheit? No [email or web address] Information not available 02/04/2020 Are You Or Anyone In Your Household A Health Care Provider Or Emergency Responder? No [email or web address] Information not available 02/04/2020 To The Best Of Your Knowledge Have You Been In Close Proximity To Any Individual Who Tested Positive For COVID-19? No Information not available 02/04/2020 *AWV ONLY* Are [...] Gathering In The Last 10 Days? No [email or web address] Information not available 08/04/2020 What Was The Date Of Your Most Recent Tobacco Screening? 09/08/2024 [email or web address] Information not available 09/08/2024 How Many Children Do You Have? 2 Nu Information not available 06/08/2022 Do You Use Protection During Sex? No Information not available 05/28/2017 What Is Your Relationship Status? [email or web address] Information not available 09/08/2024 Seat Belts Used Routinely Yes [email or web address] Information not available 09/09/2014 Are You Sexually Active? No [email or web address] Information not available 09/07/2023 Smoke Alarm In Home Yes Information not available 05/28/2017 At What Age Did You Start Smoking Tobacco? 0 Information not available 05/28/2017 Are You Passively Exposed To Smoke? No Information not available 05/28/2017 How Much Tobacco Do You Smoke? No Information not available 05/28/2017 General Stress Level High [email or web address] Information not available 09/08/2024 Do You Use Sunscreen Routinely? No Information not available 09/09/2014 How Many Years [...] is your level of alcohol consumption? None [email or web address] Information not available 09/09/2014 Do you or have you ever used smokeless tobacco? Never used smokeless tobacco [email or web address] Information not available 02/04/2020 Are you currently employed? No retired Information not available 10/23/2018 Are you able to walk independently without assistance or assistive devices? YESWOREST [email or web address] Information not available 02/18/2021 Are you able to care for yourself independently? 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 Never used electronic cigarettes [email or web address] Information not available 08/12/2020 What is your exercise level? Occasional walking in warm weather Information not available 06/08/2022 Mental Status None recorded. Family History Relationship Description Onset Age of this Age Resolved Age Notes LastModified by Organization Details LastModified Time Mother Diabetes mellitus [email or web address] Not available 09/12 13:37:42 Sister Diabetes mellitus [email or web address] Not available 09/12 13:37:42 Sister Essential hypertension [email or web address] Not available 09:42:01 Sister Dementia Not availab le 02/18/2021 10:33:35 Brother Diabetes mellitus [email or web address] Not available 09/12 13:37:42 Brother Kidney disease [email or web address] Not available 09/12 13:37:42 Brother Disease of liver [email or web address] Not available 09/12 13:37:42 Notes:3 sisters with [...] high-dose, trivalent, PF 025 completed HUEY Santoyo [facility] 04/17/2025 13:48:15 Influenza, split virus, quadrivalent, preservative 019 [facility] 11:50:36 Influenza, adjuvanted, quadrivalent, PF 020 [facility]2022 10:10:29 COVID-19, mRNA, LNP-S, PF, 100 mcg/0.5mL dose or 50 mcg/0.25mL dose 021 completed HUEY Burkett [facility] 08/24/2021 09:19:52 COVID-19, mRNA, LNP-S, PF, 100 mcg/0.5mL dose or 50 mcg/0.25mL dose 021 completed HUEY Burkett [facility] 08/24/2021 09:19:52 Influenza, adjuvanted, quadrivalent, PF 021 completed HUEY Burkett [facility] 08/24/2021 09:19:52 COVID-19, mRNA, LNP-S, PF, 100 mcg/0.5mL dose or 50 mcg/0.25mL dose 021 completed HUEY Burkett [facility] 08/24/2021 09:19:52 Tdap 010 completed HUEY Burkett [facility] 08/24/2021 09:19:52 Influenza, split virus, trivalent, preservative 014 completed HUEY Burkett [facility] 08/24/2021 09:19:52 Influenza, split virus, quadrivalent, PF 016 completed Tatiana Tho-Yousif os, HUEY matos [facility] 06/08/2022 10:10:29 Pneumococcal conjugate PCV 13 018 completed Tatiana Tho-Yousif os, HUEY matos [facility] 06/08/2022 10:10:29 Influenza, high-dose, trivalent, PF 018 completed Tatiana Tho-Yousif os, HUEY matos [facility] 06/08/2022 10:10:30 Td (adult), 2 Lf tetanus toxoid, preservative free, adsorbed 019 completed Tatiana Tho-Yousif os, HUEY matos [facility] 06/08/2022 10:10:30 pneumococcal polysaccharide PPV23 020 completed Tatiana Tho-Yousif os, HUEY matos [facility] 06/08/2022 10:10:30 Influenza, high-dose, quadrivalent, PF 022 completed Tatiana Tho-Yousif os, HUEY matos [facility] 06/08/2022 10:25:40 Influenza, split virus, quadrivalent, PF 017 cancelled patient objection Not Available [facility] 07/19/2019 02:22:08 Influenza, high-dose, quadrivalent, PF 023 completed COLLETTE BE MD [address], [place], [address], [facility] 03/14/2023 18:56:43 zoster recombinant 024 cancelled patient objection COLLETTE BE MD [address], [place], [address], [facility] 09/07/2023 10:44:31 Influenza, high-dose, trivalent, PF 024 completed Lluvia Colmenares MA null, [facility] 03/10/2024 11:23:02 varicella 001 completed Aisha Jacobs null, [facility] 05/14/2020 11:50:36 MMR 001 completed Aisha Jacobs null, [facility] 05/14/2020 11:50:36 Td (adult), 2 Lf tetanus toxoid, preservative free, adsorbed 001 completed Aisha Jacobs null, [facility] 05/14/2020 11:50:36 Influenza, split virus, trivalent, preservative 007 completed Aisha Jacobs null, [facility] 05/14/2020 11:50:36 Influenza, split virus, trivalent, preservative 010 completed Aisha Jacobs null, [facility] 05/14/2020 11:50:36 Influenza, split virus, trivalent, preservative 010 completed Aisha Jacobs null, [facility] 05/14/2020 11:50:37 Influenza, split virus, trivalent, preservative 012 completed Aisha Jacobs null, [facility] 05/14/2020 11:50:37 Influenza, split virus, trivalent, preservative 012 completed Aisha Jacobs null, [facility] 05/14/2020 11:50:36 influenza, seasonal, intradermal, preservative free 013 completed Aisha matos [facility] 05/14/2020 11:50:36 Past Encounters Encounter ID Performer Location Encounter Start Date Encounter Closed Date Diagnosis/Indication Diagnosis SNOMED-CT Code Diagnosis ICD10 Code Diagnosis IMO Codes Diagnosis Note [id number] [facility] [address] [facility],[address] [place] [address] 11/14/2006 00:00:00 [id number] auto[facility] erce [address] [facility],[address] [place] [address] 11/14/2006 00:00:00 [id number] [employer] [facility] [address] [facility],[address] [place] [address] 06/14/2007 00:00:00 [id number] auto[employer] erce [address] [facility],[address] [place] [address] 06/14/2007 00:00:00 [id number] auto[employer] erce [address] [facility],[address] [place] [address] 06/14/2007 00:00:00 [id number] [facility] [facility] [address] [facility],[address] [place] [address] 10/11/2007 00:00:00 [id number] auto[facility] [facility] [address] [facility],[address] [place] [address] 07/03/2008 00:00:00 [id number] auto[employer] [facility] [address] [facility],[address] [place] [address] 08/10/2008 00:00:00 [id number] auto[employer] erce [address] [facility],[address] [place] [address] 08/10/2008 00:00:00 [id number] auto[employer] [address] [facility],[address] [place] [address] 08/10/2008 00:00:00 [id number] [facility] er[facility] [address] [facility],[address] [place] [address] 08/10/2008 00:00:00 [id number] auto[facility] [facility]ce [address] [place] [address] 08/20/2008 00:00:00 [id number] auto[employer] erce [address] [place] [address] 08/20/2008 00:00:00 [id number] auto[facility] [facility]ce [address] [place] [address] 08/20/2008 00:00:00 [id number] auto[facility]Comm erce [address] [facility] [address] [place] [address] 01/07/2009 00:00:00 [id number] auto[employer]Comm erce [address] [facility] [address] [place] [address] 04/13/2009 00:00:00 [id number] auto[employer]Comm erce [address] [facility] [address] [place] [address] 04/13/2009 00:00:00 [id number] auto[employer] erce [address] [facility],[address] [place] [address] 04/13/2009 00:00:00 [id number] auto[employer] erce [address] [facility] [address] [place] [address] 06/18/2009 00:00:00 [id number] auto[facility]Comm erce [address] [facility] [address] [place] [address] 07/12/2009 00:00:00 [id number] auto[employer] erce [address] [facility],[address] [place] [address] 07/12/2009 00:00:00 [id number] auto[facility] erce [address] [facility] [address] [place] [address] 08/27/2009 00:00:00 [id number] auto[employer] erce [address] [facility],[address] [place] [address] 08/27/2009 00:00:00 [id number] auto[employer]Comm erce [address] [place] [address] 12/24/2009 00:00:00 [id number] auto[employer]Comm erce [address] [place] [address] 02/22/2010 00:00:00 [id number] autoEComm erce [address] [place] [address] 02/22/2010 00:00:00 [id number] autoEComm erce [address] [place] [address] 02/22/2010 00:00:00 [id number] auto[facility]Comm erce [address] [facility] [address] [place] [address] 03/25/2010 00:00:00 [id number] auto[employer]Comm erce [address] [facility],[address] [place] [address] 03/25/2010 00:00:00 [id number] auto[facility] erce [address] [facility],[address] [place] [address] 05/17/2010 00:00:00 [id number] auto[facility] erce [address] [facility] [address] [place] [address] 05/17/2010 00:00:00 [id number] auto[employer]Comm erce [address] [facility],[address] [place] [address] 06/29/2010 00:00:00 [id number] auto[employer]Comm erce [address] [facility],[address] [place] [address] 07/22/2010 00:00:00 [id number] autoEComm erce [address] [facility] [address] [place] [address] 07/22/2010 00:00:00 [id number] auto[employer]Comm erce [address] [facility],[address] [place] [address] 07/22/2010 00:00:00 [id number] autoEComm erce [address] [facility] [address] [place] [address] 07/22/2010 00:00:00 [id number] autoEComm erce [address] [place] [address] 10/25/2010 00:00:00 [id number] autoEComm erce [address] [place] [address] 10/25/2010 00:00:00 [id number] autoEComm erce [address] [place] [address] 10/25/2010 00:00:00 [id number] autoEComm erce [address] [place] [address] 01/20/2011 00:00:00 [id number] autoEComm erce [address] [facility] [address] [place] [address] 01/20/2011 00:00:00 [id number] autoEComm erce [address] [facility] [address] [place] [address] 07/14/2011 00:00:00 [id number] autoEComm erce [address] [facility],[address] [place] [address] 07/14/2011 00:00:00 [id number] [employer] [address] [facility] [address] [place] [address] 07/28/2011 00:00:00 [id number] [employer] [address] [facility] [address] [place] [address] 07/28/2011 00:00:00 [id number] [employer] [address] [facility],[address] [place] [address] 07/28/2011 00:00:00 [id number] [employer] [address] [facility] [address] [place] [address] 08/10/2011 00:00:00 [id number] [employer] [address] [facility],[address] [place] [address] 11/29/2011 00:00:00 [id number] [employer] [address] [place] [address] 11/29/2011 00:00:00 [id number] [employer] [address] [place] [address] 11/29/2011 00:00:00 [id number] [employer] [address] [place] [address] 02/23/2012 00:00:00 [id number] [employer] [address] [place] [address] 06/03/2012 00:00:00 [id number] [employer] [address] [place] [address] 08/05/2012 00:00:00 [id number] [employer] [address] [facility] [address] [place] [address] 08/05/2012 00:00:00 [id number] [employer] [address] [facility] [address] [place] [address] 08/05/2012 00:00:00 [id number] [employer] [address] [facility] [address] [place] [address] 10/29/2012 00:00:00 [id number] [employer] [address] [facility] [address] [place] [address] 12/02/2012 00:00:00 [id number] [employer] [address] [facility] [address] [place] [address] 12/02/2012 00:00:00 [id number] [employer] [address] [place] [address] 05/07/2013 00:00:00 [id number] [employer] [address] [facility] [address] [place] [address] 05/07/2013 00:00:00 [id number] [employer] [address] [place] [address] 06/11/2013 00:00:00 [id number] [employer] [address] [place] [address] 06/11/2013 00:00:00 [id number] [employer] [address] [place] [address] 08/27/2013 00:00:00 [id number] [employer] [address] [place] [address] 08/27/2013 00:00:00 [id number] [employer] [address] [place] [address] 08/27/2013 00:00:00 [id number] [employer] [address] [place] [address] 2 08/27/2013 00:00:00 [id number] [employer] [address] [facility],[address] [place] [address] 09/08/2013 00:00:00 [id number] [employer] [address] [facility],[address] [place] [address] 2 09/08/2013 00:00:00 [id number] [employer] [address] [facility],[address] [place] [address] 09/08/2013 00:00:00 [id number] Osbaldo Porter [facility] Main Office [address] [facility] [address] [place], [place] [address] 02/20/2014 11:19:41 02/20/2014 12:11:21 Lightheadedness [id number] unclear cause. not orthostati c. not inner ear. likely stress related. f/u if worsens Essential hypertension 64935123 she wants to get a diabetes test, so she will go fasting. BP is under good control [id number] Osbaldo Porter [facility] Main Office [address] [facility] [address] [place], [place] [address] 06/12/2014 11:05:16 06/12/2014 12:17:17 Cervical radiculopathy 45281141 she declines prednisone . if does not get better we will refer to [facility]. the chest pain is likely related to this Atypical chest pain 461205150 she is low risk for coronary artery dz. the pain is at rest. unlikely cardiac. Will do stress test though Essential hypertension 12574774 BP stable, continue current meds Gastroesop hageal reflux disease 788092126 well controlled [id number] Lainey watkins MD Main Office [address] [place] [address] 09/09/2014 12:44:43 09/09/2014 14:50:13 Adult health examination 180887966 all screening is utd, pt to drink more water. Cervical radiculopathy 41152667 start gabapentin a nd we georges et pt up for eval at [facility], I think it generates from her neck Essential hypertension 45491705 HR is up, need smroe fluids, mild transient dizziness at times with stress and standing, hydrate, orthostati cs show. Hypercholesterolemia 47609269 check cholestero l Family his tory of dementia 305464026 pt will find out types her sisters have, we will check vascular risk factors, encouraged healthy habits, she will find out more, if she want to see neurology to discuss that was offered to her [id number] Lainey watkins MD Main Office [address] [place] [address] 01/20/2015 15:57:59 01/20/2015 16:33:30 Essential hypertension 60231693 BP is well controlled , continue meds Muscle pain 61055390 uses motrin prn with food, tolerates it fine [id number] Lainey watkins MD Main Office [address] [place] [address] 09/13/2015 13:25:31 09/13/2015 14:09:29 Adult health examination 586848682 Z00.00 all screening is utd, pt to drink more water., needs more exercise, healthier eating Essential hypertension 08498843 I10 BP is well controlled , continue meds Family his tory of Senile dementia 293386444 Z81.8 3 sisters with dementia in their 60's one is vascular and the other not sure. pt will find out more about their histories. I encouraged pt to exercise adn use her mind, is looking for parttime job but encouraged reading, games [id number] Lainey watkins MD Main Office [address] [address] [place] [address] 03/15/2016 12:32:16 03/15/2016 14:06:25 Essential hypertension 18165313 I10 BP is well controlled , continue meds Needs infl uenza immunization 894041164 Z23 [id number] Chiquis Garnett PA-C Main Office [address] [address] [place] [address] 07/05/2016 09:22:38 07/05/2016 10:31:02 Pain of hip region 43946641 M25.551 Start NSAIDs regularly for 2 weeks with PPI or Pepcid BID. Can also take TYlenol ES for breakthrou gh pain. Consider cortisone injection in 2 weeks if pain is still present and no sign. arthopathy on XRAys. Knee pain 40617455 M25.5 61 If sign. arthropath y and pain is not gone in 2 weeks time, will refer to rheumatolo gy. If no arthropath y and pain, then orthopedic consult. [id number] Crescencio Ontiveros MD Main Office [address] [address] [place] [address] 07/14/2016 08:56:57 07/14/2016 09:47:46 Dysuria 30301534 R30.0 [id number] Lainey watkins MD Main Office [address] [address] [place] [address] 07/20/2016 10:08:00 07/20/2016 10:49:54 Abdominal pain 78829331 R10.9 most likely constipati on, pt to continue meds for GERD and see GI, check CBC to rule out anemia, stool guiac negative here Constipation 83186632 K5 9.00 Gastroesop hageal reflux disease 569204028 K21.9 well conrolled on meds, [id number] Chiquis Garnett PA-C Main Office [address] [address] [place] [address] 09/01/2016 13:53:34 09/01/2016 14:36:12 Acute cervical sprain 074489850 S13.4XXA Avoid lifting or excessive neck bending for 2 weeks. Ice altern with heat applicatio ns 10 min each at least 2-3 times daily for the next 35- days. F/u as needed. [id number] Lainey watkins MD Main Office [address] [address] [place] [address] 09/14/2016 10:42:55 09/14/2016 11:58:26 Adult health examination 966815324 Z00.00 all screening is utd, pt to drink more water., needs more exercise, healthier eating Essential hypertension 67440960 I10 BP is well controlled , continue meds Family his tory of dementia 408365357 Z81.8 3 sisters with dementia, 2 sisters have DM. the dementia started around 58 long talk with pt about prevention , I gave her homework of sleeping 8 hours, getting sleep study, exercising more, brain gym exercises. Fatigue 38155520 R53.83 refer for sleep study [id number] Lainey watkins MD Main Office [address] [address] [place] [address] 11/22/2016 15:17:10 11/22/2016 16:01:45 Tendinitis of wrist 030404202 M77.8 ice, whitneyrin, refer ot rheumatolo gy for eval [id number] Lainey watkins MD Main Office [address] [address] [place] [address] 12/14/2016 13:59:02 12/14/2016 14:36:18 Osteoarthritis of knee 076719942 M17.0 pt to rest, stretch motrin prn Pain of wrist region 566 24425 M25.532 improving due to stopping repetitive motion Body mass index 30+ - obesity 076442058 Z68.30 E66.9 work on weight loss [id number] Pepito Garnett PA-C Main Office [address] [address] [place] [address] 05/28/2017 16:05:53 05/28/2017 17:19:16 Immunization refused 711308878 Z28.21 Lumbosacra l radiculitis 71563993 M54.17 s/p fall last month - check for VCF vs other Constipation 74727138 K5 9.00 Gastroesop hageal reflux disease 867807428 K21.9 [id number] Lainey watkins MD Main Office [address] [facility] [address] [facility] [place] [address] 09/19/2017 14:26:57 09/19/2017 15:56:56 Adult health examination 757489683 Z00.00 all screening is utd, more exercise Impacted c erumen of bilateral ears 2787686030 846763 H61.23 soaked and lavaged today Sleep apnea 42466872 G47 .30 pt to see sleep medicine and get set up for CPAP she will arrange, not treated to date, has moderate sleep apnea, I reviewed sleep study with her Congestion of nasal sinus 63151673 R09.81 flonase Gastroesop hageal reflux disease 946315207 K21.9 well controlled on meds, uses as needed Essential hypertension 85782040 I10 BP is well controlled , continue meds [id number] Chiquis Garnett PA-C Main Office [address] [place] [address] 11/09/2017 12:56:49 11/09/2017 14:20:31 Tension-type headache 936280723 G44.209 Will start ibuprofen 400-600 mg every TID with food plus Priloc OTC to protect stomach for 1 week. Hypercalcemia 45221277 E 83.52 Will check on labs Allergic rhinitis 022133 04 J30.1 start OTC antihistam ine in addition to the flonase Foot pain 44854061 M79.6 71 Prior injury. Will xRay and hope NSAIDs will also address the issue. [id number] Lainey watkins MD Main Office [address] [facility] [address] [facility] [place] [address] 01/23/2018 14:03:44 01/23/2018 14:58:57 Essential hypertension 98569554 I10 BP is well controlled , continue meds Obstructiv e sleep apnea syndrome 52000733 G47.33 pt not using CPAP, I asked her to reevaluate and she will Hyperparathyroidism [address] Maya, saw him recently and he is following labs and is in charge of hyperparat hyroidism [id number] Lainey watkins MD Main Office [address] [facility] [address] [place] [address] 05/20/2018 13:45:21 05/20/2018 14:51:27 Hyperparathyroidism 27677545 E21.[address] Maya with all her parathyroi d question, she has a mild elevation in calcium, she will make an appt, he is taling to her about surgery Influenza vaccine needed 6312791253 106 Z23 Administra tion of pneumococcal vaccine 49386675 Z23 Essential hypertension 38164492 I10 BP is well controlled , continue meds [id number] Crescencio Ontiveros MD Main Office [address] [address] [place] [address] 07/24/2018 10:46:08 07/24/2018 11:40:39 Right lower quadrant pain 353315169 R10.31 Probably secondary to constipati on. Constipation 67597948 K5 9.00 [id number] Lainey watkins MD Main Office [address] [address] [place] [address] 09/26/2018 08:49:14 09/26/2018 09:49:02 Adult health examination 639160423 Z00.00 all screening is utd, more exercise, Hyperparathyroidism 6699 9008 E21.3 had parathryoi d surgery, has fullness in middle of neck above incision, feels like scar/react hailee tissue, no warmth or signs of infection, seeing endo tomorrow. Essential hypertension 82597521 I10 BP is well controlled , continue meds History of calculus of kidney 936478810 Z87.442 Hypercholesterolemia 136 66342 E78.00 check cholestero l Radiology result abnormal 950701459 R93.89 KUB with ? of hiatal hernia in mid of chest recc CXR check CXR no symptoms and pt has a known hiatal hernia [id number] Randy Villa MD Main Office [address] [facility] [address] [place] [address] 10/22/2018 15:11:41 10/22/2018 15:55:45 Chest pain 16189047 R07.9 atypical chest pain. Due to risk factors , will schedule for stress test to r/o ischemic disease. Pt. is advised to avoid strenuous physical activity. [id number] Lainey watkins MD Main Office [address] [address] [place] [address] 01/21/2019 09:42:48 01/21/2019 10:26:21 Essential hypertension 00251046 I10 BP is well controlled , continue meds Cramp in lower limb 4499 33229 R25.2 recent labs nl, pt to hydrate, roll bottom of feet, stretch and wear good shoes [id number] Lainey watkins MD Main Office [address] [address] [place] [address] 05/23/2019 10:22:20 05/23/2019 11:06:17 Essential hypertension 55075933 I10 BP is well controlled , continue meds Requires a tetanus booster 361947285 Z23 Allergic reaction 725665 005 T78.40XA to terpentine , advised clean the area with soap and water, air out house, it was not placed int he house but in the basement or outside pt to start zyrtec Hyperparathyroidism 6699 9008 E21.3 reviewed note, check calcium q 6 months, no longer followed by endo [id number] Lainey watkins MD Main Office [address] [place] [address] [place] [address] 07/11/2019 13:41:18 07/11/2019 14:53:31 Essential hypertension 55849383 I10 BP is well controlled , continue meds Muscle pain 49767939 M79 .10 sternal border reproducib le no concerns for cardiac Atypical chest pain 1025 82284 R07.89 ekg unchanged form past, no acute changes, pain is reproducib le no further eval needed [id number] Lainey watkins MD Main Office [address] [address] [place] [address] 10/13/2019 09:15:07 10/13/2019 10:58:07 Essential hypertension 28608685 I10 BP is well controlled , continue meds Indigestion 075932211 R1 0.13 better since lowered citrus intake Vitamin D deficiency 347 95296 E55.9 refill med, will continue [id number] Lainey watkins MD Main Office [address] [place] [address] 02/04/2020 10:45:54 02/04/2020 11:46:00 Adult health examination 783402751 Z00.00 all screening is utd, more exercise, Essential hypertension 40395274 I10 BP is well controlled , continue meds Hyperparathyroidism 6699 9008 E21.3 check calcium, no longer followed by endo Administra tion of pneumococcal vaccine 95129714 Z23 Hearing loss 64643451 H9 1.90 I encouraged pt to use hearing aids, she is worried about memory loss since it runs in her family, we discussed the importance of using hearing aids in [facility] ip to memory health no other memory concerns other than forgets names and passwords, writes down passwords, all seemed wnl Family his tory of amnesia 404857918 Z81.8 I reassured pt her concerns of forgetting names at times and needing to write down passwords i nl, recc doing puzzles, reading, using hearing aids [id number] Lainey watkins MD [facility] [address] [place] [address] 08/04/2020 13:44:03 08/05/2020 13:31:07 Pruritus of scalp 479459785 L29.8 difficult to decifer due to phone visit, pt was told if symptoms continue she needs an in office appt. Has scalp irritation , she is concerned about lice, treated self and will repeat in 3 days. HAs appt next week. [id number] Lainey watkins MD Main Office [address] [address] [address] [place] [address] 08/12/2020 09:32:05 08/12/2020 10:47:29 Essential hypertension 71156932 I10 BP is well controlled , continue meds Increased frequency of urination 897863786 R35.0 neg urine dip, will send out, referred pt back to urology, I reviewed urology note from Dr Rashid from 05/10/20 saying urodynamic s will be next if not tolerating detrol which she did not History of parathyroidectomy 7370715037 75900 Z90.89 recheck calcium i 02/19 History of primary hyperparathyroidism 6467766460 9106 Z86.39 nl calcium 01/2020 Pruritus of scalp 597835 005 L29.8 nl exam, no evidence of lice, did 2 tx, leave scalp along [id number] Lainey watkins MD Main Office [address] [facility] [address] [place] [address] 02/18/2021 09:55:27 02/18/2021 10:48:03 Adult health examination 230164614 Z00.00 all screening is utd, more exercise, Advance di rective discussed with patient 960198870 Z71.89 I discussed MOLST and health care proxy form. I gave pt MOLST form and proxy form, pt will fill out, discuss MOLST form with proxy and sign and return to our office Essential hypertension 22225949 I10 BP is well controlled , continue meds had a high blood pressure reading at the dentist, gets nervous Hyperparathyroidism 6699 9008 E21.3 check calcium, no longer followed by endo [id number] Lainey watkins MD Main Office [address] [address] [address] [place] [address] 08/24/2021 09:06:11 08/24/2021 09:55:52 Essential hypertension 64699633 I10 BP mldly elevated today, she is stressed, doesn ot want to increase lisinopril to 10mg which is what I suggested, she is interested in [employer] monitoring , will sign her up and she knows to do 4 times a week minimum 3 month followup Hyperparathyroidism 6699 9008 E21.3 check calcium annually, nl in 02/19 , no longer followed by endo will cehck at in 02/20 Stress 51320731 Z73.3 not tolerating it well, we discussed vvarious ways to help. [id number] Randy Villa MD Main Office [address] [facility] [address] [place] [address] 11/16/2021 14:36:04 11/16/2021 16:22:25 Diarrhea 51240993 R19.7 pt states diarrhea stopped a few days ago (recently on clinda twice) - if returns, then check stool studies below - meanwhile, take a probiotic qd for a few wks COVID-19 936077646 U07.1 last week - dx'd at [facility] - feeling better in general Counseling 325844354 Z71 .9 Health advice, education or counseling done for COVID 19 Candidiasis of mouth 797 87873 B37.0 [id number] Lainey watkins MD Main Office [address] [place] [address] 11/23/2021 10:25:52 11/23/2021 11:06:17 Essential hypertension 86668707 I10 BP a bit high but will follow and continue meds I advised pt start checking BP at home History of SARS-CoV-2 29 74693140 67949115 Z86.16 resolved, she is is feeling better. Candidiasis of mouth 797 68706 B37.0 will continue nystatin for another 5 days, was on clindamyci n. Increased frequency of urination 134660952 R35.0 all resolved [id number] Lainey watkins MD Main Office [address] [place] [address] 04/19/2022 10:15:40 04/19/2022 11:37:19 Low back pain 604195534 M54.51 Rest, stretching at home, start PT program twice a week. Can try salonpas patch in the day and try diclofenac gel at night, sleep with pillow under knees or between knees. Likely muscular, call if not better with PT and medication s. [id number] Lainey watkins MD Main Office [address] [place] [address] 06/08/2022 09:54:45 06/08/2022 10:47:58 Adult health examination 361072648 Z00.00 mammogram is due and colonoscop y is utd, more exercise, pt to set up mammgoram Screening for malignant neoplasm of breast 012093235 Z12.39 pt to arrange Essential hypertension 70358333 I10 BP is high here , pt will check BP at home and return and work on low salt and lower stress. Pain of le ft hip joint 1794904838 33339 M25.552 xray an encouraged [place] [id number] COLLETTE BE MD Main Office [address] [facility] [address] [facility] [place], [place] [address] 07/20/2022 09:49:30 07/20/2022 11:13:12 Essential hypertension 49836448 I10 - BP on previous visit elevated at 148/76 and as a result pt lisinopril was increased to 10mg- BP today 162/82 and 138/80 on repeat- BP at home also not well controlled - previous BP medication : HCTZ 25mg- pt is currently on lisinopril 10mg QD- spoke with patient to increase to lisinopril 20mg however patient refused- risks of refusing medication increase and having elevated BP explained to patient and patient understand s riskAMENDM ENT: pt called clinic at 3:00 PM and stated she agrees with the increase in her medication , lisinopril to 20mg.- RTC in 4 weeks for follow-up Counselled on:-Dietar y Approaches to Stop Hypertensi [...] ankles.>Jose ve trouble with your vision. Palpitations 92993286 R0 0.2 - has been occurring for the last month- lasts a few mins- tried to have patient undergo EKG today however machine broke- will refer to patient to cardiology instead- ordered TSH Fatigue 84754461 R53.83 Z00.00 Hyperlipidemia 28089434 E78.5 Z00.00 [id number] COLLETTE BE MD Main Office [address] [facility] [address] [place] [address] 08/22/2022 10:46:00 08/22/2022 11:17:00 Essential hypertension 05001601 I10 - NOT at GOAL- BP today 147/65 however this is on lisinopril 10mg when patient should be on 20mg- BP at home not checked- previous BP medication : HCTZ 25mg- pt advised that she needed to compliant with medication and needs to start taking her blood pressure at home- due to worsening heart palpitatio ns with the lisinopril will switch medication over to amlodipine - therefore stopped lisinopril 20mg QD and started on amlodipine 5mg QD- Pt to follow-up in 4 weeks by TH Counselled on:-Dietar y Approaches to Stop Hypertensi [...] ankles.>Jose ve trouble with your vision. Palpitations 23288004 R0 0.2 - has been occurring for the last month however has been worsening, occurring more frequently - lasts a few mins- TSH is WNL- pt is following with cardiology for this complaint, will try get more recent note [id number] COLLETTE BE MD Main Office [address] [facility] [address] [place] [address] 09/19/2022 11:01:33 09/19/2022 12:26:16 Essential hypertension 23521235 I10 - closer to goal- BP today 131/86- previous BP medication : HCTZ 25mg and lisinopril 20mg (lisinopri l stopped as it was given patient heart palpitatio n's)- c/w amlodipine 5mg QD as it is controllin g BP better- Pt to follow-up in 3 months for a blood pressure check Counselled on:-Dietar y Approaches to Stop Hypertensi [...] ankles.>Jose ve trouble with your vision. Palpitations 76945263 R0 0.2 - has been occurring for the last month however has been worsening, occurring more frequently - lasts a few mins- TSH is WNL- stress test was negative- pt to still undergo ECHO- pt is following with cardiology for this complaint, will try get more recent note [id number] Debbie garcia, DEPARTMENT STORE MANAGER Main Office [address] [facility] [address] [place] [address] 10/11/2022 14:26:42 10/11/2022 16:18:46 Essential hypertension 53500207 I10 BP still elevated to increase amlodipine to 10 mg daily short term followup Palpitations 95515288 R0 0.2 - has been occurring for the last few months however has been worsening, occurring more frequently - lasts a few mins- TSH is WNL- pt is following with cardiology for this complaint, will try get more recent note Visual disturbance 68817 001 H53.9 -possible TIA with onset right eye vision change, needs to have urgent evaluation , including CT head. Pt refuses ambulance, wants to drive herself to [place] ED, aware this is not recommende d, to ticket puller if any neuro sx-need to rule out carotid stenosis-p ossible TIA > possible Afib not detected in monitoring , recommend longer monitoring , ekg today NSR, no afib.-johanne lmology evaluation for vision change. Anxiety state 135651742 F41.1 pt needs this addressed at followup visit. [id number] COLLETTE BE MD Main Office [address] [facility] [address] [facility] [place] [address] 12/25/2022 11:20:28 12/25/2022 12:03:12 Essential hypertension 68997064 I10 - at goal- BP today 123/73- previous BP medication : HCTZ 25mg, lisinopril 20mg (lisinopri l stopped as it was given patient heart palpitatio n's), amlodipine 10mg (stopped due to complaint of lower extremity swelling)- switched amlodipine to losartan 50mg- Pt to follow-up in 1 month for TH Counselled on:-Dietar y Approaches to Stop Hypertensi [...] ankles.>Jose ve trouble with your vision. Palpitations [id number] R0 0.2 - now resolved- TSH is WNL- stress test was negative- ECHO showed increased right atrial pressure- holter monitor was normal Edema of l ower extremity 434752682 R60.0 - bilateral, worse after driving- amlodipine could be the cause of the swelling therefore this medication was stopped- pt advised to wear compressiv e stockings- RTC in one month to check for improvemen t [id number] COLLETTE BE MD Main Office [address] [facility] [address] [facility] [place], [place] [address] 02/01/2023 10:07:07 02/01/2023 12:01:10 Edema of lower extremity 644752119 R60.0 - bilateral, worse after driving- amlodipine could be the cause of the swelling however medication continued as patient very resistant to switching to other blood pressure medication . as per patient she is very sensitive and has several side effects Essential hypertension 75051532 I10 - elevated- BP today 142/90 with wrist BP- previous BP medication :> HCTZ 25mg> lisinopril 20mg: stopped as it was given patient heart palpitatio n's> losartan 50mg: stopped due to heart palpitatio ns, right arm numbness and fatigue- pt switched back to amlodipine as it is the only medication she can tolerate. also please note patient does not want to start a thiazide diuretics. - pt gets really nervous when she talks to MD as it not always complaint with directives MD gives and she is afraid MD will get mad. as a result this increases her blood pressure Counselled on:-Dietar y Approaches to Stop Hypertensi [...] your ankles.>Jose ve trouble with your vision. [id number] COLLETTE BE MD Main Office [address] [facility] [address] [facility] [place] [address] 03/12/2023 13:16:04 03/12/2023 13:48:48 Essential hypertension 71362844 I10 - as been under good control- BP today 114/70- previous BP medication :> HCTZ 25mg: was having low potassium> lisinopril 20mg: stopped as it was given patient heart palpitatio n's> losartan 50mg: stopped due to heart palpitatio ns, right arm numbness and fatigue> amlodipine 10mg: stopped due to lower extremity edema- pt switched chlorthali done 25mg> BMP ordered, will need to monitor potassium levels- pt gets really nervous when she talks to MD and is not always complaint with directives MD gives and she is afraid MD will get mad. as a result this increases her blood pressure Counselled on:-Dietar y Approaches to Stop Hypertensi [...] your ankles.>Jose ve trouble with your vision. Edema of l ower extremity 584220182 R60.0 - bilateral, worse after driving- amlodipine could be the cause of the swelling therefore medication was stopped Influenza vaccine needed [id number] 106 Z23 [id number] COLLETTE BE MD Main Office [address] [place] [address] 04/10/2023 10:26:36 04/10/2023 11:20:37 Essential hypertension 11615991 I10 - as been under good control- BP today 120/79- previous BP medication :> HCTZ 25mg: was having low potassium> lisinopril 20mg: stopped as it was given patient heart palpitatio n's> losartan 50mg: stopped due to heart palpitatio ns, right arm numbness and fatigue> amlodipine 10mg: stopped due to lower extremity edema> chlorthali done 25mg: headaches, heart racing and diarrhea- as BP is under good control will reducing amlodipine from 10mg to 5mg due to lower extremity edema Counselled on:-Dietar y Approaches to Stop Hypertensi [...] your ankles.>Jose ve trouble with your vision. Edema of l ower extremity 567348067 R60.0 - bilateral, worse after driving- amlodipine could be the cause of the swelling therefore medication was stopped- pt advised to wear compressio n stockings Atypical chest pain 1025 68690 R07.89 - occurred on 04/07- EKG today was normal, similar to previous- stress test 08/24 was normal- pt was following with cardiology - will continue to monitor [id number] SHAMIKA PALAFOX Main Office [address] [place] [address] 06/28/2023 13:21:20 06/28/2023 14:20:34 Fall W19.XXXA -fall occurred on 06/22/23; at night while asleep pt fell off her bed. possible head strike. unknown of any loss of consciousn ess-left [facility] AMA before being evaluated due to long wait time-exper iences right sided headaches since fall; 2-3 episodes a day all lasting <10 min-throbb ing in sensation- pt also notes to increase levels of stress due to divorce-di scussed signs/symp toms to monitor for that would warrant an ER visit-will order CT scan Unilateral left sided headache [id number] R51.9 -fall occurred on 06/22/23; at night while asleep pt fell off her bed. possible head strike. unknown of any loss of consciousn ess-left [facility] AMA before being evaluated due to long wait time-exper iences right sided headaches since fall; 2-3 episodes a day all lasting <10 min-throbb ing in sensation- pt also notes to increase levels of stress due to divorce-di scussed signs/symp toms to monitor for that would warrant an ER visit-will order CT scan [id number] COLLETTE BE MD Main Office [address] [facility] [address] [place] [address] 09/07/2023 10:08:08 09/07/2023 10:47:32 Adult health examination 332933014 Z00.00 Health Maintenanc e FemaleA) Patient was counseled on healthy diet, exercise and nutrition. BMI of 29.8. B) ScreeningL ast Mammogram: start at age 50 stop at 72Date: 07/21/2023 esult: BIRADS-4Ne xt: s/p biospy Last Pap smear: aged out (had a partial hysterecto my) Last Colonoscop y: start at age 45-75Date: Re sult:Next: had it at [facility], will request records Last DEXA scan:Date: 05/13/2020 Result: normalNext : DUE, ordered C) Vaccines:I nfluenza: 03/12/2023T dAP:2018 (Td)Zoster : refusedPCV 13: 05/20/2018 PPSV23: 02/04/2020PC V20:PCV15: COVID: 09/06/2020, 10/05/2020, 05/06/2021 D) Routine blood work orderedE) Updated patient's history RTC in one year for annual exam or sooner if any acute complaints Fall W19.XXXD -fall occurred on 06/22/23; at night while asleep pt fell off her bed. possible head strike. unknown of any loss of consciousn ess-left [facility] AMA before being evaluated due to long wait time-exper iences right sided headaches since fall; 2-3 episodes a day all lasting <10 min-throbb ing in sensation- pt also notes to increase levels of stress due to divorce-di scussed signs/symp toms to monitor for that would warrant an ER visit-CT head was normal Essential hypertension 16167598 I10 - good control- BP today 119/75- previous BP medication :> HCTZ 25mg: was [...] your ankles.>Jose ve trouble with your vision. Atypical chest pain 1025 48715 R07.89 - now resolved- occurred on 04/07- stress test 08/24 was normal- pt was following with cardiology , is not longer- will continue to monitor Bone density finding 385 049153 M85.89 Varicella vaccination 68 788601 Z23 Fatigue 92813478 R53.83 Z00.00 Hyperlipidemia 15459193 E78.5 Z00.00 Headache 96992194 R51.9 -throbbing in sensation [id number] Randy Villa MD Main Office [address] [place] [address] 09/26/2023 13:16:45 09/26/2023 14:21:06 Fall W19.XXXA last weekend - did not go to ER or ucc - happens o/n - likely related to tuan/plm's - see below Syncope 696887994 R55 last seen by card 2.23 - will get re-eval for this, may be of benefit to get updated holter monitor Vitamin D deficiency 347 97970 E55.9 Essential hypertension 01478253 I10 stable, cont med as dir Hypernatremia 388969302 E87.0 mild last week - recheck Obstructiv e sleep apnea syndrome 84800737 G47.33 pt non-compli ant c cpap - last seen 5.18 - will get re-eval [id number] COLLETTE BE MD Main Office [address] [place] [address] 03/10/2024 10:49:30 03/10/2024 11:17:18 History of syncope 1809340923 80827 Z86.79 - no repeat episodes since august- pt was seen by cardiology and declined holter monitor- does have an appoitment upcoming with sleep medicine as patient is currently walking up several time a night and feels that is what caused the episode Essential hypertension 56013263 I10 - good control- BP today 114/64- previous BP medication :> HCTZ 25mg: was [...] ankles.>Jose ve trouble with your vision. Palpitations 45340942 R0 0.2 - now resolved- TSH is WNL- stress test was negative- ECHO showed increased right atrial pressure- holter monitor was normal Obstructiv e sleep apnea syndrome 55275162 G47.33 - pt referred to sleep medicine, has not undergone testing Vitamin D deficiency 347 46044 E55.9 - was noted to be deficient in August, will recheck levels Fatigue 77791927 R53.83 Z00.00 Hyperlipidemia 41849276 E78.5 Z00.00 FASTING Influenza vaccine needed 6454611482 106 Z23 65 YEARS AND OLDER Pain of ri ght shoulder joint 7515368441 7752096 M25.511 - has been on-going since breast biospy- pt will be seen by breast center on 03/12 for follow-up- do not believe the two are related however patient wants to see first with specialist > if after discussion with breast specialist and consensuse s is made that pain is not coming from breast biospy will order x-ray of the shoulder [id number] Crescencio Ontiveros MD Main Office [address] [facility] [address] [place] [address] 05/28/2024 13:21:29 05/28/2024 14:09:39 Injury of head 65719105 S09.90XA incident occurred yesterday> pt opened a cabinet and storage bin fell on pt head-denie s of any LOC-endors es headaches and blurry vision shortly after incident-d enies of any changes in concentrat ion, n/v, sensitivit y to light, sleep habits-has no confusion, memory issues-leonor l order CT of head-discu ssed conservati ve measuremen ts; rest physically and mentally Concussion with no loss of consciousness 89450237 S06.0X0A head injury without LOC-incide nt occurred yesterday; see injury of head for more details-sy mptoms of headache, blurry vision-CT of head ordered Discussed with patient the importance of no physical activity and symptoms limited cognitive activity until cleared. Patient voice understand ing and realize the consequenc es of a repeat head trauma. [id number] Randy Villa MD Main Office [address] [facility] [address] [place] [address] 08/21/2024 12:33:36 08/21/2024 13:22:06 Degeneration of cervical intervertebral disc 73103164 M50.30 Defer decision to pursue MRI or EMG to PMR. Arthritis of acromioclavicular joint 389042999 M13.811 Mild disease and symptoms. No need to involve ortho at this time. Pain in right arm 454208 004 M79.601 ? if her symptoms are central or peripheral . PT trial made minimal impact. Will ask PMR to help further with evaluation /mgmt. [id number] COLLETTE BE MD Main Office [address] [place] [address] 09/08/2024 10:26:55 09/08/2024 11:10:58 Advance directive discussed with patient 257230033 Z71.89 - discussed POLTS and HCP Adult heal th examination 128363314 Z00.00 Health Maintenanc e FemaleA) Patient was counseled on healthy diet, exercise and nutrition. BMI of 27.6 B) ScreeningL ast Mammogram: start at age 50 stop at 72Date: 07/23/2024R esult: BIRADS-2Ne xt: 07/2025 (hx of biospy) Last Pap smear: aged out (had a partial hysterecto my) Last Colonoscop y: start at age 45-75Date: Re sult: normalNext : 10 years Last DEXA scan:Date: 05/13/2020 Result: normalNext : DUE, ordered C) Vaccines:I nfluenza: 03/10/2024Td AP:11/22/2 019 (Td)Zoster : refusedPCV 13: 05/20/2018 PPSV23: 02/04/2020CO VID: 09/06/2020, 10/05/2020, 05/06/2021 D) Routine blood work orderedE) Updated patient's history RTC in one year for annual exam or sooner if any acute complaints Essential hypertension 44912042 I10 - good control- BP today 121/72- previous BP medication :> HCTZ 25mg: was [...] ankles.>Jose ve trouble with your vision. Palpitations 28195723 R0 0.2 - now resolved- TSH is WNL- stress test was negative- ECHO showed increased right atrial pressure- holter monitor was normal Obstructiv e sleep apnea syndrome 19513686 G47.33 - pt referred to sleep medicine, has not undergone testing Fatigue 68028240 R53.83 Z00.00 Hyperlipidemia 99757916 E78.5 Z00.00 - ASCVD score of 8.2- lipid panel 03/2024: cholestero l-162, triglyceri vane-97, HDL-43, LDL-101- pt declines statin therapy Pt counselled on:- Eat a heart-heal thy diet - Choose healthy fats. Avoid saturated fats that are found primarily in red meat, manzano, sausage, and full-fat dairy products. Advised to choose lean proteins like chicken, turkey, and fish when possible. Switch to low-fat or fat-free dairy. And use monounsatu rated fats like olive and canola oil for cooking. - Cut out the trans fats. Trans fats are found in fried food and processed foods, like cookies, crackers, and other snacks. - Eat more omega-3s. Counseled on eating more fish, including salmon, mackerel, akhtar ,nuts and seeds, like walnuts and flax seeds. - Increase your fiber intake. By eating more oats, brain, fruits, beans, and vegetables , can lower your LDL cholestero l levels. - Eat more fruits and veggies. Statin declined 65331111 0 Z53.20 Hyperparathyroidism 6699 9008 E21.3 - pt no longer following endocrinol ogy Hearing loss 07606734 H9 1.93 - pt refuses hearing aids at this time Vitamin D deficiency 347 76167 E55.9 - was noted to be deficient in August, will recheck levels Neck pain 11507670 M54.2 - pt will be seeing physiatry within the next week [id number] COLLETTE BE MD Main Office [address] [place] [address] 01/08/2025 10:50:03 01/08/2025 11:27:22 Essential hypertension 44883930 I10 - good control- BP today 121/75- previous BP medication :> HCTZ 25mg: was [...] ankles.>Jose ve trouble with your vision. Palpitations 15116740 R0 0.2 - now resolved- TSH is WNL- stress test was negative- ECHO showed increased right atrial pressure- holter monitor was normal Obstructiv e sleep apnea syndrome 09249325 G47.33 - pt referred to sleep medicine, has not undergone testing -> did not go Hyperlipidemia 60505937 E78.5 Z00.00 - ASCVD score of 9.1%- [...] Eat more fruits and veggies. Hearing loss 92272675 H9 1.93 - pt refuses hearing aids at this time Vitamin D deficiency 347 15784 E55.9 - resolved- levels normal taken on 09/09/2024 Statin declined 29711794 0 Z53.20 Seasonal a llergic rhinitis 066329579 J30.2 0917253626 - under good control- pt uses flonase as needed [id number] Crescencio Ontiveros MD Main Office [address] [address] [place] [address] 01/29/2025 14:44:57 01/29/2025 15:12:04 Atopic dermatitis 82846303 L20.9 98047251 Doubt a contact dermatitis given the location. Sun exposure can do this but again it is present in a very limited area. She had normal labs a few months ago so a systemic problem is also less likely. [id number] Crescencio Ontiveros MD Main Office [address] [address] [place] [place] [address] 02/23/2025 11:08:09 02/23/2025 11:34:37 Blood-tinged feces 8233653646 76812 K92.1 577998 -recently traveled to [place], developed a rash that has since resolved-s hortly after the rash, pt notes of having blood in her stools-den ies of any abdominal pain, n/v/d/c, fever/chil ls, or sudden weight loss-no known consumptio n of raw or food-state s she saw a small worm in her stool-will order stool culture for ova+parasi tani [id number] COLLETTE BE MD Main Office [address] [address] [place] [address] 04/17/2025 13:36:44 04/17/2025 14:10:38 Essential hypertension 05816783 I10 - good control- BP today 119/74- [...] ankles.>Jose ve trouble with your vision. Palpitations 86496759 R0 0.2 - now resolved- TSH is WNL- stress test was negative- ECHO showed increased right atrial pressure- holter monitor was normal Obstructiv e sleep apnea syndrome 57522400 G47.33 - pt referred to sleep medicine-a gain for TUAN and sleep walking> please note patient was referred in the past but did not go Hyperlipidemia 69575749 E78.5 Z00.00 - ASCVD score of 9.1%- [...] Eat more fruits and veggies. 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 26022 - occurred on three occasions Pruritus ani 78856453 L2 9.0 291469 - pt believes she has a parasite- [...] need to look into other possibilit ies [id number] COLLETTE BE MD Main Office [address] [place] [address] 06/15/2025 14:11:54 06/15/2025 15:02:14 Pain of left shoulder region 7260399493 M25.512 42277223 - Presenting with acute left shoulder pain [...] LastModified Time None Recorded Advance Directives Directive N: Payers Insurance Date Sequence Insurance Name Policy Number Policy Lezama Covered Member ID Lezama Member ID Guarantor Name 06/15/2025 1 [place]MEDICARE [place]PLACEMENT PPO) [id number] Oleta M Edwards [id number] Oleta M Edwards 04/17/2025 [employer]STATE Oleta M Edwards Oleta M Edwards 04/17/2025 1 [place] [id number] Oleta M Edwards [id number] Oleta M Edwards 04/17/2025 2 [place] [facility] Oleta M Edwards [id number] Oleta M Edwards 04/17/2025 2 [facility] [employer] [facility] - TOGETHER (MEDICAID HMO) Oleta M Edwards [id number] Oleta M Edwards 04/17/2025 1 [facility] [employer] - CAREPLUS (MEDICAID HMO) Oleta M Edwards [id number] Oleta M Edwards Notes Date Note Type Note Provider Name and Address Organization Details Recorded Time 5 text/html Hypertension F/UReported by PatientPatient here for [...] note patient is using a wrist BP cuff. Demi Edwards is a 70 year old F presented to the clinic blood pressure check. COLLETTE BE MD [address] [address], [place], [address], [facility] 01/08/2025 11:29:30 5 text/html ROS as noted in the HPI She has a very itchy rash around her neck and upper chest especially on the left side. It has been present for 3 weeks. She tried OTC hydorcortisone w/o much help. She denies contact with anyone with a similar rash. She has not had a similar rash in the past. Denies new soaps or detergents, no new meds and no recent abx. She does not wear anything around her neck Crescencio Ontiveros MD [address] [address], [place], [address], [facility] 01/29/2025 17:56:52 5 text/html ROS as noted in the HPI Demi is a 70yr old F who presents for concerns of bloody stool/parasites in stool. Reports she recently traveled to [place] and developed a rash on her neck and legs. Was seen 3 weeks ago for rash- since resolved. Now endorsing occasional blood in the stool. Denies of any pain with defecation. States she saw a small worm in her stool prior to flushing. Denies of any abdominal pain, nausea/vomiting, diarrhea, or constipation. No fever, chills, or sudden weight loss. SHAMIKA PALAFOX [address] [address], [place], [address], [facility] 02/23/2025 11:38:57 5 text/html Hypertension F/UReported by PatientPatient here for [...] or sudden weight loss. COLLETTE BE MD [address] [address], [place], [address], [facility] 04/17/2025 14:17:08 5 text/html Musculoskeletal PainReported by PatientHPIFor severity, [...] shoulder pain.PMH significant for acromioclavicular joint arthritis. COLLETTE BE MD [address] [facility] [address], [place], [address], [facility] 06/15/2025 16:25:33 OBGyn Episode No OBEpisode recorded.
--- OUTSIDE RECORDS SUMMARY | 2025-06-22 18:18 | XMS_ITS | Clinical Summary ---
Author Organization [address] [facility] Address [address] [place] [address] Phone Care Team Providers Care Warehouse Operations Associate Name Role Phone Collette Be MD Primary Care Provider Encounters Date Type Department Care Team Description 05/11/2025 Telephone Gastroenterology - [address] [phone] Andrés Campbell MD from Last 3 Months Social History Tobacco Use Types Packs/Day Years Used Date Smoking Tobacco: Never Assessed Comments Unknown Sex and Gender Information Value Date Recorded Sex Assigned at Not on file Legal Sex Female 6:32 PM EST Gender Identity Not on file Sexual Orientation Not on file Plan of Treatment Upcoming Encounters Date Type Department Care Team ([facility] Contact Info) Description 12/22/2025 1:00 PM EDT Consult Gastroenterology - [address] [phone] Romina Fuller, LILY [address] [address] Health Maintenance Due Date Last Done Comments Breast Cancer Screening 1955 Colorectal Cancer Screening: Colonoscopy 1955 DTaP,Tdap,and Td Vaccines (1 - Tdap) 01/02/1972 Pneumococcal Vaccine: 50+ Ye ars (1 of 1 - PCV) 2003 Zoster Vaccines (1 of 2) 2003 Falls Risk Assessment 07/31/2023 Hepatitis C Screening 07/31/2023 Medicare Annual Wellness Visit 07/31/2023 Osteoporosis Screening (Bone Density Screening) 07/31/2023 Social Influencers of Health Screening 07/31/2023 Depression Screening 07/02/2024 COVID-19 Vaccine (1 - 2024-2 6 season) 2025 Influenza Vaccine (#1) 2025 RSV Immunization Adult Patie nts (1 - 1-dose 75+ series) 01/02/2028 HIB Vaccines Aged Out No longer eligi [...] on patient's age to complete this topic MMR Vaccines Aged Out No longer eligi ble based on patient's age to complete this topic Meningococcal ACWY Vaccine Aged Out N o longer eligible based on patient's age to complete this topic Meningococcal B Vaccine Aged Out No l onger eligible based on patient's age to complete this topic RSV Immunization Patients Un amanda 20 months Aged Out No longer eligible b ased on patient's age to complete this topic Varicella Vaccines Aged Out No longer eligible based on patient's age to complete this topic Insurance [address] [place] [id number] [place] MEDIC[place] ADVANTAGE [place]ARKER [id number] Care Teams Warehouse Operations Associate Relationship Specialty Start Date End Date Collette Be MD [address] [address] PCP - General Internal Medicine 05/11/25
== END 2025-06-22 15:39 | disposition home or self-care (01) ==
LOC: HO.HPHYS 15:02
PROVIDERS: Visit Provider Physician Assistant
DX: M54.2 Cervicalgia (principal); M25.812 Other specified joint disorders, left shoulder
CPT/HCPCS: 99213